=== PATIENT | male | born 1980 | race Caucasian/White ===

== ENCOUNTER 2018-04-06 12:51 | Inpatient (IN) | payer OTHER ==
[~2018-04-06] VITALS: Ht 180.3 cm; Wt 83.9 kg
[2018-04-06] MEDS ORDERED: ONDANSETRON PF 4 MG/2 ML VIAL. IV ONE (13:15)
[2018-04-06] MEDS ORDERED: MORPHINE SULFATE 4 MG/ML VIAL. IV ONE (13:15)
[2018-04-06] MEDS ORDERED: IV NORMAL SALINE 1000ML BAG 1,000 ML IV ONE ×2 (13:15→17:30)
[2018-04-06 13:29] LABS: BASO % 0 % (0-3); EOS % 0 % (0-3); HEMATOCRIT 44.4 % (39.0-53.0); LYMPH # 1.2 x10^3/uL (1.0-4.8); LYMPH % 13 % (24-48); MEAN CORPUSCULAR HEMOGLOBIN 28 pg (25-35); MEAN CORPUSCULAR HGB CONC 34 g/dL (31-37); MEAN CORPUSCULAR VOLUME 84 fL (79-100); MONO # 0.6 x10^3/uL (0.0-1.1); MONO % 6 % (0-9); NEUT # 7.6 x10^3uL (1.8-7.7); NEUT % 81 % (31-73); PLATELET COUNT 314 x10^3/uL (140-400); RED BLOOD COUNT 5.28 x10^6/uL (4.30-5.70); RED CELL DISTRIBUTION WIDTH 16.4 % (11.5-14.5); WHITE BLOOD COUNT 9.3 x10^3/uL (4.0-11.0)
[2018-04-06] MEDS ORDERED: IOHEXOL 240 MG/ML 50ML VIAL. PO ONE (13:30)
[2018-04-06] MEDS ORDERED: CONTRAST GIVEN. MC PRN (13:30)
[2018-04-06] MEDS ORDERED: IOHEXOL 300 MG/ML 100ML VIAL. IV ONE (13:30)
[2018-04-06 13:31] LABS: CALCIUM 8.9 mg/dL (8.5-10.1); GFR 84.1; POTASSIUM 4.1 mmol/L (3.5-5.1)
[2018-04-06 13:31] LABS: CREATININE ISTAT 0.9 mg/dL (0.5-1.4); HEMOGLOBIN ISTAT 15.6 g/dL (14-18); ION CA ISTAT 1.09 mmol/L (1.13-1.32)
[2018-04-06 13:37] LABS: ALBUMIN 3.6 g/dL (3.4-5.0); TOTAL BILIRUBIN 0.6 mg/dL (0.2-1.0); TOTAL PROTEIN 7.3 g/dL (6.4-8.2)
--- NOTE | 2018-04-06 15:18 | RAD ---
PQRS Compliance Statement: One or more of the following individualized dose reduction techniques were utilized for this examination: 1. Automated exposure control 2. Adjustment of the mA and/or kV according to patient size 3. Use of iterative reconstruction technique CT ABD PELV W/ORAL IV CONTRAST Clinical Indication: H/O CROHN'S. Abdominal pain, bloating. Comparison: None. Technique: Helical CT imaging of the abdomen and pelvis is performed after 75 cc of Omnipaque 300 IV contrast. Oral contrast also given. Findings: Lung bases are clear. Cardiac size normal. Liver, gallbladder, spleen, pancreas, adrenal glands, abdominal aorta, and kidneys are normal. Stomach unremarkable. Postsurgical change enterocolic anastomosis. Appendix not identified, presumably surgically absent. There is mid to distal small bowel obstruction. Point of transition is probably a right of midline supra umbilical hernia containing a loop of small bowel, image 43. The hernia has a narrow neck. No colon wall thickening is appreciated. There are subcentimeter mesenteric lymph nodes. No intraperitoneal free air. The urinary bladder is normal. There is moderate pelvic free fluid. Prostate is normal. There is grade 1 anterolisthesis of L4 and L5. There is bilateral L4 spondylolysis. IMPRESSION: 1. There is high-grade mid to distal small bowel obstruction. Point of transition is probably a right of midline supraumbilical hernia. 2. Moderate pelvic free fluid. Electronically signed by: Khoa Arguello MD (04/06/2018 3:14 PM) [id number]
--- NOTE | 2018-04-06 15:42 | PHYS DOC ---
Past Medical History Past Medical History: Hypertension, Other Additional Past Medical Histor: CROHNS, HERNIA Past Surgical History: Other Additional Past Surgical Histo: SB RESECTION, HERNIA REPAIR, L. HAND Alcohol Use: None Drug Use: None Adult General Chief Complaint Chief Complaint: ABDOMINAL PAIN [facility] HPI Patient is a 37 year old male who presents to the ER for evaluation of abdominal pain. Patient is currently in custody at [place]. He reports history of Crohn's disease not on any medications for the past 7-8 years. He is status post a bowel resection. 8 years ago related to his Crohn's. In in custody for the past 8 years and has not received any close GI follow-up. Patient reports onset of abdominal pain 5 days ago. States that he [facility] and was given IV Solu-Medrol and IV fluids. Patient reports that he has been nothing by mouth since that time secondary to pain/nausea. Patient reports that he try to drink some juice this morning had acute onset of severe pain. Patient reports diffuse abdominal distention, inability to pass Flatus, 10 out of 10, sharp diffuse abdominal pain. No fever. Review of Systems Review of Systems Constitutional: Denies fever or chills [] Eyes: Denies change in visual acuity, redness, or eye pain [] HENT: Denies nasal congestion or sore throat [] Respiratory: Denies cough or shortness of breath [] Cardiovascular: No additional information not addressed in HPI [] GI: Denies abdominal pain, nausea, vomiting, bloody stools or diarrhea [] : Denies dysuria or hematuria [] Musculoskeletal: Denies back pain or joint pain [] Integument: Denies rash or skin lesions [] Neurologic: Denies headache, focal weakness or sensory changes [] Endocrine: Denies polyuria or polydipsia [] All other systems were reviewed and found to be within normal limits, except as documented in this note. Current Medications Current Medications Current Medications Medications (Trade) Dose Ordered Sig/Rufino Start Time Stop Time Status Last Admin Dose Admin Info (CONTRAST GIVEN -- Rx MONITORING) 1 each PRN DAILY PRN 04/06/18 13:30 04/08/18 13:29 Iohexol (Omnipaque 240 Mg/ml) 30 ml 1X ONCE 04/06/18 13:30 04/06/18 13:31 DC 04/06/18 13:30 30 ML Iohexol (Omnipaque 300 Mg/ml) 75 ml 1X ONCE 04/06/18 13:30 04/06/18 13:31 DC 04/06/18 13:30 75 ML Morphine Sulfate (Morphine Sulfate) 4 mg 1X ONCE 04/06/18 13:15 04/06/18 13:21 DC 04/06/18 14:10 4 MG Ondansetron HCl (Zofran) 8 mg 1X ONCE 04/06/18 13:15 04/06/18 13:21 DC 04/06/18 14:11 8 MG Sodium Chloride 1,000 ml @ 1,000 mls/hr 1X ONCE 04/06/18 13:15 04/06/18 14:14 DC 04/06/18 14:11 1,000 MLS/HR Allergies Allergies Allergies Coded Allergies Type Severity Reaction Last Updated Verified No Known Drug Allergies 04/06/18 No Physical Exam Physical Exam Constitutional: Well developed, well nourished, moderate distress, non-toxic appearance. [] HENT: Normocephalic, atraumatic, Eyes: PERRLA, EOMI, Neck: Normal range of motion, Cardiovascular:Heart rate regular rhythm, no murmur [] Lungs & Thorax: Bilateral breath sounds clear to auscultation [] Abdomen: Moderate distention, decreased bowel sounds throughout, 3 x 2 cm easily reducible hernia just right lateral to midline incision. Diffuse moderate tenderness. Skin: Warm, dry, no erythema, no rash. [] Extremities: ROM intact, no edema. [] Neurologic: Alert and oriented X 3, no focal deficits noted. [] Psychologic: Affect normal, judgement normal, mood normal. [] Current Patient Data Vital Signs Vital Signs Date Time Temp Pulse Resp B/P (MAP) Pulse Ox O2 Delivery O2 Flow Rate FiO2 04/06/18 14:10 20 04/06/18 12:51 98.0 53 166/88 (114) 98 Room Air 98.0 Lab Values Laboratory Tests Test 04/06/18 13:05 04/06/18 13:16 White Blood Count 9.3 x10^3/uL (4.0-11.0) Red Blood Count 5.28 x10^6/uL (4.30-5.70) Hemoglobin 15.0 g/dL (13.0-17.5) Hematocrit 44.4 % (39.0-53.0) Mean Corpuscular Volume 84 fL (79-100) Mean Corpuscular Hemoglobin 28 pg (25-35) Mean Corpuscular Hemoglobin Concent 34 g/dL (31-37) Red Cell Distribution Width 16.4 % (11.5-14.5) H Platelet Count 314 x10^3/uL (140-400) Neutrophils (%) (Auto) 81 % (31-73) H Lymphocytes (%) (Auto) 13 % (24-48) L Monocytes (%) (Auto) 6 % (0-9) Eosinophils (%) (Auto) 0 % (0-3) Basophils (%) (Auto) 0 % (0-3) Neutrophils # (Auto) 7.6 x10^3uL (1.8-7.7) Lymphocytes # (Auto) 1.2 x10^3/uL (1.0-4.8) Monocytes # (Auto) 0.6 x10^3/uL (0.0-1.1) Eosinophils # (Auto) 0.0 x10^3/uL (0.0-0.7) Basophils # (Auto) 0.0 x10^3/uL (0.0-0.2) Sodium Level 137 mmol/L (136-145) Potassium Level 4.1 mmol/L (3.5-5.1) Chloride Level 101 mmol/L (98-107) Carbon Dioxide Level 29 mmol/L (21-32) Anion Gap 7 (6-14) 17 mmol/L (6-14) H Blood Urea Nitrogen 20 mg/dL (8-26) Creatinine 1.0 mg/dL (0.7-1.3) Estimated GFR (Cockcroft-Gault) 84.1 BUN/Creatinine Ratio 20 (6-20) Glucose Level 143 mg/dL (70-99) H 137 mg/dL (70-99) H Lactic Acid Level 1.3 mmol/L (0.4-2.0) Calcium Level 8.9 mg/dL (8.5-10.1) Total Bilirubin 0.6 mg/dL (0.2-1.0) Aspartate Amino Transferase (AST) 10 U/L (15-37) L Alanine Aminotransferase (ALT) 20 U/L (16-63) Alkaline Phosphatase 89 U/L (46-116) Total Protein 7.3 g/dL (6.4-8.2) Albumin 3.6 g/dL (3.4-5.0) Albumin/Globulin Ratio 1.0 (1.0-1.7) Lipase 75 U/L (73-393) POC Hemoglobin 15.6 g/dL (14-18) POC Hematocrit 46 % (37-52) POC Sodium 137 mmol/L (135-145) POC Potassium 4.0 mmol/L (3.5-5.0) POC Chloride 99 mmol/L (98-110) POC Total CO2 27 mmol/L (23-32) POC Blood Urea Nitrogen 21 mg/dL (8-26) POC Creatinine 0.9 mg/dL (0.5-1.4) POC Ionized Calcium (Luther) 1.09 mmol/L (1.13-1.32) L Laboratory Tests 04/06/18 13:05 Laboratory Tests 04/06/18 13:05 04/06/18 13:16 EKG EKG [] Radiology/Procedures Radiology/Procedures CT ABD/Pelvis [facility] [address] [place] [address] IMAGING REPORT Signed PATIENT: DEUCE SMITH ACCOUNT: [id number] : 1980 LOCATION: ER AGE: 37 SEX: M EXAM STATUS: REG ER ORD. PHYSICIAN: GEN SCHAFER DO REASON: H/o Crohns. eval for SBO vs perforation vs abscess PROCEDURE: CT ABD PELV W/ORAL&IV CONTRAST PQRS Compliance Statement: One or more of the following individualized dose reduction techniques were utilized for this examination: 1. Automated exposure control 2. Adjustment of the mA and/or kV according to patient size 3. Use of iterative reconstruction technique CT ABD PELV W/ORAL IV CONTRAST Clinical Indication: H/O CROHN'S. Abdominal pain, bloating. Comparison: None. Technique: Helical CT imaging of the abdomen and pelvis is performed after 75 cc of Omnipaque 300 IV contrast. Oral contrast also given. Findings: Lung bases are clear. Cardiac size normal. Liver, gallbladder, spleen, pancreas, adrenal glands, abdominal aorta, and kidneys are normal. Stomach unremarkable. Postsurgical change enterocolic anastomosis. Appendix not identified, presumably surgically absent. There is mid to distal small bowel obstruction. Point of transition is probably a right of midline supra umbilical hernia containing a loop of small bowel, image 43. The hernia has a narrow neck. No colon wall thickening is appreciated. There are subcentimeter mesenteric lymph nodes. No intraperitoneal free air. The urinary bladder is normal. There is moderate pelvic free fluid. Prostate is normal. There is grade 1 anterolisthesis of L4 and L5. There is bilateral L4 spondylolysis. IMPRESSION: 1. There is high-grade mid to distal small bowel obstruction. Point of transition is probably a right of midline supraumbilical hernia. 2. Moderate pelvic free fluid. Electronically signed by: Khoa Arguello MD (04/06/2018 3:14 PM) [id number] DICTATED and SIGNED BY: KHOA ARGUELLO MD DATE: 04/06/18 1452 [] Course & Med Decision Making Course & Med Decision Making Pertinent Labs and Imaging studies reviewed. (See chart for details) []1520: CT as above consistent with high-grade small bowel obstruction. On repeat examination patient reporting that his symptoms are well controlled after 1 dose of nausea and pain medication. Patient denies any current nausea. Patient's hernia continues to remain easily reducible. Will admit for continued management. Given control symptoms will not place an NG tube at this time. Discussed case with Dr. Durbin hollow tile partition erector for general surgery use agreeable with plan. Dr. Durbin recommendation for NG tube placement should patient have further nausea/vomiting. Discussed case with Dr. Felipe hollow tile partition erector for hospital service who is agreeable to admission. Patient remained hemodynamically stable in the ER. Dragon Disclaimer Dragon Disclaimer This electronic medical record was generated, in whole or in part, using a voice recognition dictation system. Departure Departure Impression: Primary Impression: Small bowel obstruction Disposition: ADMITTED INPATIENT Admitting Physician: Guillermo Case Condition: GUARDED Referrals: NO PCP (PCP) GEN SCHAFER DO Apr 06, 2018 15:42
[2018-04-06] MEDS ORDERED: MORPHINE SULFATE 4 MG/ML VIAL. IV PRN (15:45)
[2018-04-06 15:57] LABS: BILIRUBIN,URINE NEGATIVE (NEG); CLARITY,URINE CLEAR; COLOR,URINE YELLOW; NITRITE,URINE NEGATIVE (NEG); PROTEIN,URINE NEGATIVE (NEG-TRACE)
[2018-04-06 16:05] LABS: BACTERIA,URINE 0 /HPF (0-FEW); RBC,URINE OCC /HPF (0-2); SQUAMOUS EPITHELIAL CELL,UR OCC /LPF; WBC,URINE 0 /HPF (0-4)
[2018-04-06 16:38] VITALS: BP 126/70
--- NOTE | 2018-04-06 17:08 | PDOC1 ---
History and Physical Date of Admission Date of Admission DATE: 04/06/18 TIME: 17:06 Identification/Chief Complaint Chief Complaint cc Patient is currently in custody at [facility]. history of Crohn's disease not on any medications for the past 7-8 years. status post a bowel resection. 8 years ago related to his Crohn's at [facility] . In custody for the past 8 years and has not received any close GI follow-up. reports onset of abdominal pain 5 days ago. [facility] and was given IV Solu-Medrol and IV fluids.no improvement Past Medical History GI: Other (crohn's) Family History Family History: Other (crohn's) Social History Smoke: Quit ALCOHOL: none Drugs: Other (WORKED [employer] BEFORE JAILED) Current Problem List Problem List Problems Medical Problems: (1) Small bowel obstruction Status: Acute Current Medications Current Medications Current Medications Sodium Chloride 1,000 ml @ 1,000 mls/hr 1X ONCE IV Last administered on at 14:11; Start 04/06/18 at 13:15; Stop 04/06/18 at 14:14; Status DC Morphine Sulfate (Morphine Sulfate) 4 mg 1X ONCE IV Last administered on at 14:10; Start 04/06/18 at 13:15; Stop 04/06/18 at 13:21; Status DC Ondansetron HCl (Zofran) 8 mg 1X ONCE IV Last administered on 04/06/18at 14:11 ; Start 04/06/18 at 13:15; Stop 04/06/18 at 13:21; Status DC Iohexol (Omnipaque 240 Mg/ml) 30 ml 1X ONCE PO Last administered on 04/06/18at 13:30; Start 04/06/18 at 13:30; Stop 04/06/18 at 13:31; Status DC Iohexol (Omnipaque 300 Mg/ml) 75 ml 1X ONCE IV Last administered on 04/06/18at 13:30; Start 04/06/18 at 13:30; Stop 04/06/18 at 13:31; Status DC Info (CONTRAST GIVEN -- Rx MONITORING) 1 each PRN DAILY PRN MC SEE COMMENTS; Start 04/06/18 at 13:30; Stop 04/08/18 at 13:29 Morphine Sulfate (Morphine Sulfate) 4 mg PRN Q2HR PRN IV PAIN; Start 04/06/18 at 15:45; Stop 04/07/18 at 15:44 Allergies Allergies: Coded Allergies: No Known Drug Allergies (Unverified , 04/06/18) ROS Review of System Review of Systems Review of Systems Constitutional: Denies fever or chills [] Eyes: Denies change in visual acuity, redness, or eye pain [] HENT: Denies nasal congestion or sore throat [] Respiratory: Denies cough or shortness of breath [] Cardiovascular: No additional information not addressed in HPI [] GI: Denies abdominal pain, nausea, vomiting, bloody stools or diarrhea [] : Denies dysuria or hematuria [] Musculoskeletal: Denies back pain or joint pain [] Integument: Denies rash or skin lesions [] Neurologic: Denies headache, focal weakness or sensory changes [] Endocrine: Denies polyuria or polydipsia [] 14 pt systems were reviewed and found to be within normal limits, except as documented . Current Medications General: YES: Fatigue Hematological and Lymphatic: No: Bleeding Problems, Blood Clots, Blood Transfusions, Brusing, Night Sweats, Pallor, Swollen Lymph Nodes, Other Gastrointestinal: Yes Nausea, Yes Vomiting, Yes Abdominal Pain Vitals Vitals Vital Signs Date Time Temp Pulse Resp B/P (MAP) Pulse Ox O2 Delivery O2 Flow Rate FiO2 04/06/18 16:44 54 18 144/65 (91) 95 Room Air 04/06/18 12:51 98.0 98.0 Labs Labs Laboratory Tests Test 04/06/18 13:05 04/06/18 13:16 04/06/18 15:49 White Blood Count 9.3 x10^3/uL (4.0-11.0) Red Blood Count 5.28 x10^6/uL (4.30-5.70) Hemoglobin 15.0 g/dL (13.0-17.5) Hematocrit 44.4 % (39.0-53.0) Mean Corpuscular Volume 84 fL (79-100) Mean Corpuscular Hemoglobin 28 pg (25-35) Mean Corpuscular Hemoglobin Concent 34 g/dL (31-37) Red Cell Distribution Width 16.4 % (11.5-14.5) Platelet Count 314 x10^3/uL (140-400) Neutrophils (%) (Auto) 81 % (31-73) Lymphocytes (%) (Auto) 13 % (24-48) Monocytes (%) (Auto) 6 % (0-9) Eosinophils (%) (Auto) 0 % (0-3) Basophils (%) (Auto) 0 % (0-3) Neutrophils # (Auto) 7.6 x10^3uL (1.8-7.7) Lymphocytes # (Auto) 1.2 x10^3/uL (1.0-4.8) Monocytes # (Auto) 0.6 x10^3/uL (0.0-1.1) Eosinophils # (Auto) 0.0 x10^3/uL (0.0-0.7) Basophils # (Auto) 0.0 x10^3/uL (0.0-0.2) Sodium Level 137 mmol/L (136-145) Potassium Level 4.1 mmol/L (3.5-5.1) Chloride Level 101 mmol/L (98-107) Carbon Dioxide Level 29 mmol/L (21-32) Anion Gap 7 (6-14) 17 mmol/L (6-14) Blood Urea Nitrogen 20 mg/dL (8-26) Creatinine 1.0 mg/dL (0.7-1.3) Estimated GFR (Cockcroft-Gault) 84.1 BUN/Creatinine Ratio 20 (6-20) Glucose Level 143 mg/dL (70-99) 137 mg/dL (70-99) Lactic Acid Level 1.3 mmol/L (0.4-2.0) Calcium Level 8.9 mg/dL (8.5-10.1) Total Bilirubin 0.6 mg/dL (0.2-1.0) Aspartate Amino Transf (AST/SGOT) 10 U/L (15-37) Alanine Aminotransferase (ALT/SGPT) 20 U/L (16-63) Alkaline Phosphatase 89 U/L (46-116) Total Protein 7.3 g/dL (6.4-8.2) Albumin 3.6 g/dL (3.4-5.0) Albumin/Globulin Ratio 1.0 (1.0-1.7) Lipase 75 U/L (73-393) Bedside Hemoglobin 15.6 g/dL (14-18) Bedside Hematocrit 46 % (37-52) Bedside Sodium 137 mmol/L (135-145) Bedside Potassium 4.0 mmol/L (3.5-5.0) Bedside Chloride 99 mmol/L (98-110) Bedside Total CO2 27 mmol/L (23-32) Bedside Blood Urea Nitrogen 21 mg/dL (8-26) Bedside Creatinine 0.9 mg/dL (0.5-1.4) Bedside Ionized Calcium (Luther) 1.09 mmol/L (1.13-1.32) Urine Collection Type Unknown Urine Color Yellow Urine Clarity Clear Urine pH 6.0 Urine Specific Juliaetta >=1.030 Urine Protein Negative mg/dL (NEG-TRACE) Urine Glucose (UA) Negative mg/dL (NEG) Urine Ketones (Stick) Trace mg/dL (NEG) Urine Blood Negative (NEG) Urine Nitrite Negative (NEG) Urine Bilirubin Negative (NEG) Urine Urobilinogen Dipstick 1.0 mg/dL (0.2 mg/dL) Urine Leukocyte Esterase Negative (NEG) Urine RBC Occ /HPF (0-2) Urine WBC 0 /HPF (0-4) Urine Squamous Epithelial Cells Occ /LPF Urine Bacteria 0 /HPF (0-FEW) Urine Mucus Marked /LPF Laboratory Tests Test 04/06/18 13:05 04/06/18 13:16 04/06/18 15:49 White Blood Count 9.3 x10^3/uL (4.0-11.0) Red Blood Count 5.28 x10^6/uL (4.30-5.70) Hemoglobin 15.0 g/dL (13.0-17.5) Hematocrit 44.4 % (39.0-53.0) Mean Corpuscular Volume 84 fL (79-100) Mean Corpuscular Hemoglobin 28 pg (25-35) Mean Corpuscular Hemoglobin Concent 34 g/dL (31-37) Red Cell Distribution Width 16.4 % (11.5-14.5) Platelet Count 314 x10^3/uL (140-400) Neutrophils (%) (Auto) 81 % (31-73) Lymphocytes (%) (Auto) 13 % (24-48) Monocytes (%) (Auto) 6 % (0-9) Eosinophils (%) (Auto) 0 % (0-3) Basophils (%) (Auto) 0 % (0-3) Neutrophils # (Auto) 7.6 x10^3uL (1.8-7.7) Lymphocytes # (Auto) 1.2 x10^3/uL (1.0-4.8) Monocytes # (Auto) 0.6 x10^3/uL (0.0-1.1) Eosinophils # (Auto) 0.0 x10^3/uL (0.0-0.7) Basophils # (Auto) 0.0 x10^3/uL (0.0-0.2) Sodium Level 137 mmol/L (136-145) Potassium Level 4.1 mmol/L (3.5-5.1) Chloride Level 101 mmol/L (98-107) Carbon Dioxide Level 29 mmol/L (21-32) Anion Gap 7 (6-14) 17 mmol/L (6-14) Blood Urea Nitrogen 20 mg/dL (8-26) Creatinine 1.0 mg/dL (0.7-1.3) Estimated GFR (Cockcroft-Gault) 84.1 BUN/Creatinine Ratio 20 (6-20) Glucose Level 143 mg/dL (70-99) 137 mg/dL (70-99) Lactic Acid Level 1.3 mmol/L (0.4-2.0) Calcium Level 8.9 mg/dL (8.5-10.1) Total Bilirubin 0.6 mg/dL (0.2-1.0) Aspartate Amino Transf (AST/SGOT) 10 U/L (15-37) Alanine Aminotransferase (ALT/SGPT) 20 U/L (16-63) Alkaline Phosphatase 89 U/L (46-116) Total Protein 7.3 g/dL (6.4-8.2) Albumin 3.6 g/dL (3.4-5.0) Albumin/Globulin Ratio 1.0 (1.0-1.7) Lipase 75 U/L (73-393) Bedside Hemoglobin 15.6 g/dL (14-18) Bedside Hematocrit 46 % (37-52) Bedside Sodium 137 mmol/L (135-145) Bedside Potassium 4.0 mmol/L (3.5-5.0) Bedside Chloride 99 mmol/L (98-110) Bedside Total CO2 27 mmol/L (23-32) Bedside Blood Urea Nitrogen 21 mg/dL (8-26) Bedside Creatinine 0.9 mg/dL (0.5-1.4) Bedside Ionized Calcium (Luther) 1.09 mmol/L (1.13-1.32) Urine Collection Type Unknown Urine Color Yellow Urine Clarity Clear Urine pH 6.0 Urine Specific Juliaetta >=1.030 Urine Protein Negative mg/dL (NEG-TRACE) Urine Glucose (UA) Negative mg/dL (NEG) Urine Ketones (Stick) Trace mg/dL (NEG) Urine Blood Negative (NEG) Urine Nitrite Negative (NEG) Urine Bilirubin Negative (NEG) Urine Urobilinogen Dipstick 1.0 mg/dL (0.2 mg/dL) Urine Leukocyte Esterase Negative (NEG) Urine RBC Occ /HPF (0-2) Urine WBC 0 /HPF (0-4) Urine Squamous Epithelial Cells Occ /LPF Urine Bacteria 0 /HPF (0-FEW) Urine Mucus Marked /LPF Images Images CT ABD PELV W/ORAL IV CONTRAST Clinical Indication: H/O CROHN'S. Abdominal pain, bloating. Comparison: None. Technique: Helical CT imaging of the abdomen and pelvis is performed after 75 cc of Omnipaque 300 IV contrast. Oral contrast also given. Findings: Lung bases are clear. Cardiac size normal. Liver, gallbladder, spleen, pancreas, adrenal glands, abdominal aorta, and kidneys are normal. Stomach unremarkable. Postsurgical change enterocolic anastomosis. Appendix not identified, presumably surgically absent. There is mid to distal small bowel obstruction. Point of transition is probably a right of midline supra umbilical hernia containing a loop of small bowel, image 43. The hernia has a narrow neck. No colon wall thickening is appreciated. There are subcentimeter mesenteric lymph nodes. No intraperitoneal free air. The urinary bladder is normal. There is moderate pelvic free fluid. Prostate is normal. There is grade 1 anterolisthesis of L4 and L5. There is bilateral L4 spondylolysis. IMPRESSION: 1. There is high-grade mid to distal small bowel obstruction. Point of transition is probably a right of midline supraumbilical hernia. 2. Moderate pelvic free fluid. Electronically signed by: Khoa Arguello MD (04/06/2018 3:14 PM) [id number] VTE Prophylaxis Ordered VTE Prophylaxis Devices: Yes VTE Pharmacological Prophylaxi: Yes Assessment/Plan Assessment/Plan IMPRESSION 1. Acute sbo high-grade mid to distal small bowel obstruction 2. Chron's disease 3. intractable vomiting plan npo iv protonix gen surg consult GI CONSULT IV FLUID SUPPORT SQ LOVENOX DVT PROPHYLAXIS KAVITHA EVANS MD Apr 06, 2018 17:08
--- NOTE | 2018-04-06 17:58 | PDOC2 ---
CONSULT Date of Consult Date of Consult DATE: 04/06/18 TIME: 17:48 Reason for Consult Reason for Consult: SBO Referring Physician Referring Physician: GRACE Identification/Chief Complaint Chief Complaint abdominal pain, nausea Source Source: Chart review, Patient History of Present Illness Reason for Visit: Himanshu is a 37 yo Crohn's patient s/p "small bowel resection" 8-9 years ago. Has had no meds for years. Currently an [facility] [place] Past Medical History Cardiovascular: No pertinent hx, HTN Pulmonary: No pertinent hx GI: Other (crohn's) Past Surgical History Past Surgical History: Other (bowel resection) Family History Family History: No Significant, Other (crohn's) Social History Quit ALCOHOL: none Drugs: Other (WORKED [employer] BEFORE JAILED) Current Problem List Problem List Problems Medical Problems: (1) Small bowel obstruction Status: Acute Current Medications Current Medications Current Medications Sodium Chloride 1,000 ml @ 1,000 mls/hr 1X ONCE IV Last administered on at 14:11; Start 04/06/18 at 13:15; Stop 04/06/18 at 14:14; Status DC Morphine Sulfate (Morphine Sulfate) 4 mg 1X ONCE IV Last administered on at 14:10; Start 04/06/18 at 13:15; Stop 04/06/18 at 13:21; Status DC Ondansetron HCl (Zofran) 8 mg 1X ONCE IV Last administered on 04/06/18at 14:11 ; Start 04/06/18 at 13:15; Stop 04/06/18 at 13:21; Status DC Iohexol (Omnipaque 240 Mg/ml) 30 ml 1X ONCE PO Last administered on 04/06/18at 13:30; Start 04/06/18 at 13:30; Stop 04/06/18 at 13:31; Status DC Iohexol (Omnipaque 300 Mg/ml) 75 ml 1X ONCE IV Last administered on 04/06/18at 13:30; Start 04/06/18 at 13:30; Stop 04/06/18 at 13:31; Status DC Info (CONTRAST GIVEN -- Rx MONITORING) 1 each PRN DAILY PRN MC SEE COMMENTS; Start 04/06/18 at 13:30; Stop 04/08/18 at 13:29 Morphine Sulfate (Morphine Sulfate) 4 mg PRN Q2HR PRN IV PAIN; Start 04/06/18 at 15:45; Stop 04/07/18 at 15:44 Enoxaparin Sodium (Lovenox 40mg Syringe) 40 mg Q24H SQ ; Start 04/06/18 at 19:00 Sodium Chloride 1,000 ml @ 125 mls/hr 1X ONCE IV ; Start 04/06/18 at 17:30; Stop 04/07/18 at 01:29 Pantoprazole Sodium (PROTONIX VIAL for IV PUSH) 40 mg DAILYAC IVP ; Start at 18:00 Allergies Allergies: Coded Allergies: No Known Drug Allergies (Unverified , 04/06/18) ROS Review of System negative with exception of present complaints Physical Exam General: Alert, Oriented X3, Other (uncomfortable 2/2 abdominal pain) HEENT: Atraumatic Lungs: Normal air movement Heart: Regular rate Abdomen: Soft, Other (well healed midline scar, reducible incisional hernia to the right of midline) Extremities: No clubbing Skin: No rashes Neuro: Normal speech Psych/Mental Status: Mental status NL Vitals VITALS Vital Signs Date Time Temp Pulse Resp B/P (MAP) Pulse Ox O2 Delivery O2 Flow Rate FiO2 04/06/18 16:44 54 18 144/65 (91) 95 Room Air 04/06/18 12:51 98.0 98.0 Labs Labs Laboratory Tests Test 04/06/18 13:05 04/06/18 13:16 04/06/18 15:49 White Blood Count 9.3 x10^3/uL (4.0-11.0) Red Blood Count 5.28 x10^6/uL (4.30-5.70) Hemoglobin 15.0 g/dL (13.0-17.5) Hematocrit 44.4 % (39.0-53.0) Mean Corpuscular Volume 84 fL (79-100) Mean Corpuscular Hemoglobin 28 pg (25-35) Mean Corpuscular Hemoglobin Concent 34 g/dL (31-37) Red Cell Distribution Width 16.4 % (11.5-14.5) Platelet Count 314 x10^3/uL (140-400) Neutrophils (%) (Auto) 81 % (31-73) Lymphocytes (%) (Auto) 13 % (24-48) Monocytes (%) (Auto) 6 % (0-9) Eosinophils (%) (Auto) 0 % (0-3) Basophils (%) (Auto) 0 % (0-3) Neutrophils # (Auto) 7.6 x10^3uL (1.8-7.7) Lymphocytes # (Auto) 1.2 x10^3/uL (1.0-4.8) Monocytes # (Auto) 0.6 x10^3/uL (0.0-1.1) Eosinophils # (Auto) 0.0 x10^3/uL (0.0-0.7) Basophils # (Auto) 0.0 x10^3/uL (0.0-0.2) Sodium Level 137 mmol/L (136-145) Potassium Level 4.1 mmol/L (3.5-5.1) Chloride Level 101 mmol/L (98-107) Carbon Dioxide Level 29 mmol/L (21-32) Anion Gap 7 (6-14) 17 mmol/L (6-14) Blood Urea Nitrogen 20 mg/dL (8-26) Creatinine 1.0 mg/dL (0.7-1.3) Estimated GFR (Cockcroft-Gault) 84.1 BUN/Creatinine Ratio 20 (6-20) Glucose Level 143 mg/dL (70-99) 137 mg/dL (70-99) Lactic Acid Level 1.3 mmol/L (0.4-2.0) Calcium Level 8.9 mg/dL (8.5-10.1) Total Bilirubin 0.6 mg/dL (0.2-1.0) Aspartate Amino Transf (AST/SGOT) 10 U/L (15-37) Alanine Aminotransferase (ALT/SGPT) 20 U/L (16-63) Alkaline Phosphatase 89 U/L (46-116) Total Protein 7.3 g/dL (6.4-8.2) Albumin 3.6 g/dL (3.4-5.0) Albumin/Globulin Ratio 1.0 (1.0-1.7) Lipase 75 U/L (73-393) Bedside Hemoglobin 15.6 g/dL (14-18) Bedside Hematocrit 46 % (37-52) Bedside Sodium 137 mmol/L (135-145) Bedside Potassium 4.0 mmol/L (3.5-5.0) Bedside Chloride 99 mmol/L (98-110) Bedside Total CO2 27 mmol/L (23-32) Bedside Blood Urea Nitrogen 21 mg/dL (8-26) Bedside Creatinine 0.9 mg/dL (0.5-1.4) Bedside Ionized Calcium (Luther) 1.09 mmol/L (1.13-1.32) Urine Collection Type Unknown Urine Color Yellow Urine Clarity Clear Urine pH 6.0 Urine Specific [place] >=1.030 Urine Protein Negative mg/dL (NEG-TRACE) Urine Glucose (UA) Negative mg/dL (NEG) Urine Ketones (Stick) Trace mg/dL (NEG) Urine Blood Negative (NEG) Urine Nitrite Negative (NEG) Urine Bilirubin Negative (NEG) Urine Urobilinogen Dipstick 1.0 mg/dL (0.2 mg/dL) Urine Leukocyte Esterase Negative (NEG) Urine RBC Occ /HPF (0-2) Urine WBC 0 /HPF (0-4) Urine Squamous Epithelial Cells Occ /LPF Urine Bacteria 0 /HPF (0-FEW) Urine Mucus Marked /LPF Laboratory Tests Test 04/06/18 13:05 04/06/18 13:16 04/06/18 15:49 White Blood Count 9.3 x10^3/uL (4.0-11.0) Red Blood Count 5.28 x10^6/uL (4.30-5.70) Hemoglobin 15.0 g/dL (13.0-17.5) Hematocrit 44.4 % (39.0-53.0) Mean Corpuscular Volume 84 fL (79-100) Mean Corpuscular Hemoglobin 28 pg (25-35) Mean Corpuscular Hemoglobin Concent 34 g/dL (31-37) Red Cell Distribution Width 16.4 % (11.5-14.5) Platelet Count 314 x10^3/uL (140-400) Neutrophils (%) (Auto) 81 % (31-73) Lymphocytes (%) (Auto) 13 % (24-48) Monocytes (%) (Auto) 6 % (0-9) Eosinophils (%) (Auto) 0 % (0-3) Basophils (%) (Auto) 0 % (0-3) Neutrophils # (Auto) 7.6 x10^3uL (1.8-7.7) Lymphocytes # (Auto) 1.2 x10^3/uL (1.0-4.8) Monocytes # (Auto) 0.6 x10^3/uL (0.0-1.1) Eosinophils # (Auto) 0.0 x10^3/uL (0.0-0.7) Basophils # (Auto) 0.0 x10^3/uL (0.0-0.2) Sodium Level 137 mmol/L (136-145) Potassium Level 4.1 mmol/L (3.5-5.1) Chloride Level 101 mmol/L (98-107) Carbon Dioxide Level 29 mmol/L (21-32) Anion Gap 7 (6-14) 17 mmol/L (6-14) Blood Urea Nitrogen 20 mg/dL (8-26) Creatinine 1.0 mg/dL (0.7-1.3) Estimated GFR (Cockcroft-Gault) 84.1 BUN/Creatinine Ratio 20 (6-20) Glucose Level 143 mg/dL (70-99) 137 mg/dL (70-99) Lactic Acid Level 1.3 mmol/L (0.4-2.0) Calcium Level 8.9 mg/dL (8.5-10.1) Total Bilirubin 0.6 mg/dL (0.2-1.0) Aspartate Amino Transf (AST/SGOT) 10 U/L (15-37) Alanine Aminotransferase (ALT/SGPT) 20 U/L (16-63) Alkaline Phosphatase 89 U/L (46-116) Total Protein 7.3 g/dL (6.4-8.2) Albumin 3.6 g/dL (3.4-5.0) Albumin/Globulin Ratio 1.0 (1.0-1.7) Lipase 75 U/L (73-393) Bedside Hemoglobin 15.6 g/dL (14-18) Bedside Hematocrit 46 % (37-52) Bedside Sodium 137 mmol/L (135-145) Bedside Potassium 4.0 mmol/L (3.5-5.0) Bedside Chloride 99 mmol/L (98-110) Bedside Total CO2 27 mmol/L (23-32) Bedside Blood Urea Nitrogen 21 mg/dL (8-26) Bedside Creatinine 0.9 mg/dL (0.5-1.4) Bedside Ionized Calcium (Luther) 1.09 mmol/L (1.13-1.32) Urine Collection Type Unknown Urine Color Yellow Urine Clarity Clear Urine pH 6.0 Urine Specific [place] >=1.030 Urine Protein Negative mg/dL (NEG-TRACE) Urine Glucose (UA) Negative mg/dL (NEG) Urine Ketones (Stick) Trace mg/dL (NEG) Urine Blood Negative (NEG) Urine Nitrite Negative (NEG) Urine Bilirubin Negative (NEG) Urine Urobilinogen Dipstick 1.0 mg/dL (0.2 mg/dL) Urine Leukocyte Esterase Negative (NEG) Urine RBC Occ /HPF (0-2) Urine WBC 0 /HPF (0-4) Urine Squamous Epithelial Cells Occ /LPF Urine Bacteria 0 /HPF (0-FEW) Urine Mucus Marked /LPF Images Images CT done earlier reviewed Assessment/Plan Assessment/Plan Hx of Crohn's s/p SBR (remote) SBO VIH HPT hydrate, serial exams, NG for any further nausea or vomiting GI eval may need SBFT d/w pt he states understanding will follow Thanks for consult SOPHIE JACKSON MD Apr 06, 2018 17:58
[2018-04-06] MEDS: PANTOPRAZOLE IV PUSH 40 MG VIAL. IVP SCH (18:15)
[2018-04-06 19:00] VITALS: BP 130/64
[2018-04-06] MEDS ORDERED: ENOXAPARIN 40 MG/0.4 ML SYRINGE. SQ SCH (19:00)
[2018-04-06 23:00] VITALS: BP 137/64
[2018-04-07 03:04] VITALS: BP 111/72
[2018-04-07 07:00] VITALS: BP 107/54
[2018-04-07] MEDS: PANTOPRAZOLE IV PUSH 40 MG VIAL. IVP SCH (07:44)
--- NOTE | 2018-04-07 08:16 | PDOC ---
SURGICAL PROGRESS NOTE Subjective feels better + flatus slight nausea with movement pain less Vital Signs Vital Signs Date Time Temp Pulse Resp B/P (MAP) Pulse Ox O2 Delivery O2 Flow Rate FiO2 04/07/18 07:00 97.9 48 16 107/54 (71) 96 Room Air 97.9 I&O Intake and Output 04/07/18 07:00 Intake Total 1120 ml Balance 1120 ml Intake Oral 120 ml IV Total 1000 ml # Voids 3 General: Alert, Oriented X3, Cooperative, No acute distress Abdomen: Soft, Other (hernia reducible) Labs Laboratory Tests Test 04/06/18 13:05 04/06/18 13:16 04/06/18 15:49 White Blood Count 9.3 x10^3/uL (4.0-11.0) Red Blood Count 5.28 x10^6/uL (4.30-5.70) Hemoglobin 15.0 g/dL (13.0-17.5) Hematocrit 44.4 % (39.0-53.0) Mean Corpuscular Volume 84 fL (79-100) Mean Corpuscular Hemoglobin 28 pg (25-35) Mean Corpuscular Hemoglobin Concent 34 g/dL (31-37) Red Cell Distribution Width 16.4 % (11.5-14.5) Platelet Count 314 x10^3/uL (140-400) Neutrophils (%) (Auto) 81 % (31-73) Lymphocytes (%) (Auto) 13 % (24-48) Monocytes (%) (Auto) 6 % (0-9) Eosinophils (%) (Auto) 0 % (0-3) Basophils (%) (Auto) 0 % (0-3) Neutrophils # (Auto) 7.6 x10^3uL (1.8-7.7) Lymphocytes # (Auto) 1.2 x10^3/uL (1.0-4.8) Monocytes # (Auto) 0.6 x10^3/uL (0.0-1.1) Eosinophils # (Auto) 0.0 x10^3/uL (0.0-0.7) Basophils # (Auto) 0.0 x10^3/uL (0.0-0.2) Sodium Level 137 mmol/L (136-145) Potassium Level 4.1 mmol/L (3.5-5.1) Chloride Level 101 mmol/L (98-107) Carbon Dioxide Level 29 mmol/L (21-32) Anion Gap 7 (6-14) 17 mmol/L (6-14) Blood Urea Nitrogen 20 mg/dL (8-26) Creatinine 1.0 mg/dL (0.7-1.3) Estimated GFR (Cockcroft-Gault) 84.1 BUN/Creatinine Ratio 20 (6-20) Glucose Level 143 mg/dL (70-99) 137 mg/dL (70-99) Lactic Acid Level 1.3 mmol/L (0.4-2.0) Calcium Level 8.9 mg/dL (8.5-10.1) Total Bilirubin 0.6 mg/dL (0.2-1.0) Aspartate Amino Transf (AST/SGOT) 10 U/L (15-37) Alanine Aminotransferase (ALT/SGPT) 20 U/L (16-63) Alkaline Phosphatase 89 U/L (46-116) Total Protein 7.3 g/dL (6.4-8.2) Albumin 3.6 g/dL (3.4-5.0) Albumin/Globulin Ratio 1.0 (1.0-1.7) Lipase 75 U/L (73-393) Bedside Hemoglobin 15.6 g/dL (14-18) Bedside Hematocrit 46 % (37-52) Bedside Sodium 137 mmol/L (135-145) Bedside Potassium 4.0 mmol/L (3.5-5.0) Bedside Chloride 99 mmol/L (98-110) Bedside Total CO2 27 mmol/L (23-32) Bedside Blood Urea Nitrogen 21 mg/dL (8-26) Bedside Creatinine 0.9 mg/dL (0.5-1.4) Bedside Ionized Calcium (Luther) 1.09 mmol/L (1.13-1.32) Urine Collection Type Unknown Urine Color Yellow Urine Clarity Clear Urine pH 6.0 Urine Specific [place] >=1.030 Urine Protein Negative mg/dL (NEG-TRACE) Urine Glucose (UA) Negative mg/dL (NEG) Urine Ketones (Stick) Trace mg/dL (NEG) Urine Blood Negative (NEG) Urine Nitrite Negative (NEG) Urine Bilirubin Negative (NEG) Urine Urobilinogen Dipstick 1.0 mg/dL (0.2 mg/dL) Urine Leukocyte Esterase Negative (NEG) Urine RBC Occ /HPF (0-2) Urine WBC 0 /HPF (0-4) Urine Squamous Epithelial Cells Occ /LPF Urine Bacteria 0 /HPF (0-FEW) Urine Mucus Marked /LPF Laboratory Tests Test 04/06/18 13:05 04/06/18 13:16 04/06/18 15:49 White Blood Count 9.3 x10^3/uL (4.0-11.0) Red Blood Count 5.28 x10^6/uL (4.30-5.70) Hemoglobin 15.0 g/dL (13.0-17.5) Hematocrit 44.4 % (39.0-53.0) Mean Corpuscular Volume 84 fL (79-100) Mean Corpuscular Hemoglobin 28 pg (25-35) Mean Corpuscular Hemoglobin Concent 34 g/dL (31-37) Red Cell Distribution Width 16.4 % (11.5-14.5) Platelet Count 314 x10^3/uL (140-400) Neutrophils (%) (Auto) 81 % (31-73) Lymphocytes (%) (Auto) 13 % (24-48) Monocytes (%) (Auto) 6 % (0-9) Eosinophils (%) (Auto) 0 % (0-3) Basophils (%) (Auto) 0 % (0-3) Neutrophils # (Auto) 7.6 x10^3uL (1.8-7.7) Lymphocytes # (Auto) 1.2 x10^3/uL (1.0-4.8) Monocytes # (Auto) 0.6 x10^3/uL (0.0-1.1) Eosinophils # (Auto) 0.0 x10^3/uL (0.0-0.7) Basophils # (Auto) 0.0 x10^3/uL (0.0-0.2) Sodium Level 137 mmol/L (136-145) Potassium Level 4.1 mmol/L (3.5-5.1) Chloride Level 101 mmol/L (98-107) Carbon Dioxide Level 29 mmol/L (21-32) Anion Gap 7 (6-14) 17 mmol/L (6-14) Blood Urea Nitrogen 20 mg/dL (8-26) Creatinine 1.0 mg/dL (0.7-1.3) Estimated GFR (Cockcroft-Gault) 84.1 BUN/Creatinine Ratio 20 (6-20) Glucose Level 143 mg/dL (70-99) 137 mg/dL (70-99) Lactic Acid Level 1.3 mmol/L (0.4-2.0) Calcium Level 8.9 mg/dL (8.5-10.1) Total Bilirubin 0.6 mg/dL (0.2-1.0) Aspartate Amino Transf (AST/SGOT) 10 U/L (15-37) Alanine Aminotransferase (ALT/SGPT) 20 U/L (16-63) Alkaline Phosphatase 89 U/L (46-116) Total Protein 7.3 g/dL (6.4-8.2) Albumin 3.6 g/dL (3.4-5.0) Albumin/Globulin Ratio 1.0 (1.0-1.7) Lipase 75 U/L (73-393) Bedside Hemoglobin 15.6 g/dL (14-18) Bedside Hematocrit 46 % (37-52) Bedside Sodium 137 mmol/L (135-145) Bedside Potassium 4.0 mmol/L (3.5-5.0) Bedside Chloride 99 mmol/L (98-110) Bedside Total CO2 27 mmol/L (23-32) Bedside Blood Urea Nitrogen 21 mg/dL (8-26) Bedside Creatinine 0.9 mg/dL (0.5-1.4) Bedside Ionized Calcium (Luther) 1.09 mmol/L (1.13-1.32) Urine Collection Type Unknown Urine Color Yellow Urine Clarity Clear Urine pH 6.0 Urine Specific [place] >=1.030 Urine Protein Negative mg/dL (NEG-TRACE) Urine Glucose (UA) Negative mg/dL (NEG) Urine Ketones (Stick) Trace mg/dL (NEG) Urine Blood Negative (NEG) Urine Nitrite Negative (NEG) Urine Bilirubin Negative (NEG) Urine Urobilinogen Dipstick 1.0 mg/dL (0.2 mg/dL) Urine Leukocyte Esterase Negative (NEG) Urine RBC Occ /HPF (0-2) Urine WBC 0 /HPF (0-4) Urine Squamous Epithelial Cells Occ /LPF Urine Bacteria 0 /HPF (0-FEW) Urine Mucus Marked /LPF Problem List Problems Medical Problems: (1) Small bowel obstruction Status: Acute Assessment/Plan check plain films if improved, possible clears today GI consult pending LEELA CARLSON APRN Apr 07, 2018 08:16
[2018-04-07] MEDS ORDERED: ONDANSETRON PF 4 MG/2 ML VIAL. IV PRN (08:45)
[2018-04-07] MEDS ORDERED: ONDANSETRON ODT 4 MG TAB.RAPDIS. PO PRN (08:45)
--- NOTE | 2018-04-07 09:18 | PDOC2 ---
GI CONSULT Reason For Consult: Acute SBO, Crohn's HPI: HPI: 37 y/o male, currently incarcerated, h/o Crohn's. Diagnosed in 2006; colonoscopy c/w Crohn's at [facility] (erythema, edema, and granularity). Cecal biopsy showed mild nonspecific inflammation w/ minimal cryptitis and rectal biopsy showed chronic mild subacute colitis w/ limited cryptitis and granulomatous change. Symptoms (pain) improved on Remicade but then had resection of terminal ileum and right colon in 2007. He says he had a follow- up colonoscopy in 2008 that was normal. Around the time of surgery medications for Crohn's were stopped and then he was incarcerated in 2009. He took nothing for awhile. He reports intermittent flare symptoms (pain, bloating, distended hernia) improved w/ steroids every 4-5 months. Then a couple years ago started taking Colazal 2 pills BID. Has been without symptoms for about a year. His family came to visit and he ate a lot on Tuesday. That day started having periumbilical pain which worsened into the next day. He had some vomiting on Tuesday and was evaluated and given fluids and Solu-Medrol. Tuesday felt a little better and had a large BM. Tuesday felt even better but had an odd- looking "dehydrated and black" stool. Basically only had sips of water during this time. On , drank some apple juice, vomited, and pain worsened. Was evaluated in the ER. CT showed mid to distal small bowel obstruction w/ transition point probably to right of midline supraumbilical hernia. Has been NPO. Received Morphine yesterday but hasn't needed today. Zofran helped nausea. This morning feels better - feels less distended, has less pain, and denies n/v. Passed a little gas. Surgery following, plans to check abd x-rays. Perhaps has occasional GERD symptoms (bloating after eating). No dysphagia. Typically has alternating bowel habits - maybe more on the constipation side, improve w/ coffee. Denies hematochezia, melena, hematemesis. Has been working out and trying to eat better, has lost weight as a result. Hurt back working out, occasionally takes ibuprofen and magnesium for this. Does not recall previous EGD. No GB, liver, or pancreas history. Used to smoke cigarettes and use meth, none since incarceration in 2009. PMH: PMH: Crohn's disease, resection of right terminal ileum and right colon, left hand surgery, umbilical hernia repair, tonsillectomy FH: Family History: Cancer (maternal aunt - colon), DM, Other (paternal great grandfather and grandfather - Crohn's) Social History: Smoke: Quit ALCOHOL: other (none since incarcerated in 2009) Drugs: Crystal meth (before incarcerated) ROS: GEN: Denies fevers, chills, sweats HEENT: Denies blurred vision, sore throat CV: Denies chest pain RESP: Denies shortness of air, cough GI: Per HPI : Denies hematuria, dysuria ENDO: +intentional weight loss NEURO: Denies confusion, dizziness MSK: +back pain SKIN: Denies jaundice, pruritus Vitals: Vitals: Vital Signs Date Time Temp Pulse Resp B/P (MAP) Pulse Ox O2 Delivery O2 Flow Rate FiO2 04/07/18 07:00 97.9 48 16 107/54 (71) 96 Room Air 97.9 Labs: Labs: Laboratory Tests Test 04/06/18 13:05 04/06/18 13:16 04/06/18 15:49 White Blood Count 9.3 x10^3/uL (4.0-11.0) Red Blood Count 5.28 x10^6/uL (4.30-5.70) Hemoglobin 15.0 g/dL (13.0-17.5) Hematocrit 44.4 % (39.0-53.0) Mean Corpuscular Volume 84 fL (79-100) Mean Corpuscular Hemoglobin 28 pg (25-35) Mean Corpuscular Hemoglobin Concent 34 g/dL (31-37) Red Cell Distribution Width 16.4 % (11.5-14.5) Platelet Count 314 x10^3/uL (140-400) Neutrophils (%) (Auto) 81 % (31-73) Lymphocytes (%) (Auto) 13 % (24-48) Monocytes (%) (Auto) 6 % (0-9) Eosinophils (%) (Auto) 0 % (0-3) Basophils (%) (Auto) 0 % (0-3) Neutrophils # (Auto) 7.6 x10^3uL (1.8-7.7) Lymphocytes # (Auto) 1.2 x10^3/uL (1.0-4.8) Monocytes # (Auto) 0.6 x10^3/uL (0.0-1.1) Eosinophils # (Auto) 0.0 x10^3/uL (0.0-0.7) Basophils # (Auto) 0.0 x10^3/uL (0.0-0.2) Sodium Level 137 mmol/L (136-145) Potassium Level 4.1 mmol/L (3.5-5.1) Chloride Level 101 mmol/L (98-107) Carbon Dioxide Level 29 mmol/L (21-32) Anion Gap 7 (6-14) 17 mmol/L (6-14) Blood Urea Nitrogen 20 mg/dL (8-26) Creatinine 1.0 mg/dL (0.7-1.3) Estimated GFR (Cockcroft-Gault) 84.1 BUN/Creatinine Ratio 20 (6-20) Glucose Level 143 mg/dL (70-99) 137 mg/dL (70-99) Lactic Acid Level 1.3 mmol/L (0.4-2.0) Calcium Level 8.9 mg/dL (8.5-10.1) Total Bilirubin 0.6 mg/dL (0.2-1.0) Aspartate Amino Transf (AST/SGOT) 10 U/L (15-37) Alanine Aminotransferase (ALT/SGPT) 20 U/L (16-63) Alkaline Phosphatase 89 U/L (46-116) Total Protein 7.3 g/dL (6.4-8.2) Albumin 3.6 g/dL (3.4-5.0) Albumin/Globulin Ratio 1.0 (1.0-1.7) Lipase 75 U/L (73-393) Bedside Hemoglobin 15.6 g/dL (14-18) Bedside Hematocrit 46 % (37-52) Bedside Sodium 137 mmol/L (135-145) Bedside Potassium 4.0 mmol/L (3.5-5.0) Bedside Chloride 99 mmol/L (98-110) Bedside Total CO2 27 mmol/L (23-32) Bedside Blood Urea Nitrogen 21 mg/dL (8-26) Bedside Creatinine 0.9 mg/dL (0.5-1.4) Bedside Ionized Calcium (Luther) 1.09 mmol/L (1.13-1.32) Urine Collection Type Unknown Urine Color Yellow Urine Clarity Clear Urine pH 6.0 Urine Specific [place] >=1.030 Urine Protein Negative mg/dL (NEG-TRACE) Urine Glucose (UA) Negative mg/dL (NEG) Urine Ketones (Stick) Trace mg/dL (NEG) Urine Blood Negative (NEG) Urine Nitrite Negative (NEG) Urine Bilirubin Negative (NEG) Urine Urobilinogen Dipstick 1.0 mg/dL (0.2 mg/dL) Urine Leukocyte Esterase Negative (NEG) Urine RBC Occ /HPF (0-2) Urine WBC 0 /HPF (0-4) Urine Squamous Epithelial Cells Occ /LPF Urine Bacteria 0 /HPF (0-FEW) Urine Mucus Marked /LPF Allergies: Coded Allergies: No Known Drug Allergies (Unverified , 04/06/18) Medications: Current Medications Medications (Trade) Dose Ordered Sig/Rufino Route PRN Reason Start Time Stop Time Status Last Admin Dose Admin Sodium Chloride 1,000 ml @ 1,000 mls/hr 1X ONCE IV 04/06/18 13:15 04/06/18 14:14 DC 04/06/18 14:11 Morphine Sulfate (Morphine Sulfate) 4 mg 1X ONCE IV 04/06/18 13:15 04/06/18 13:21 DC 04/06/18 14:10 Ondansetron HCl (Zofran) 8 mg 1X ONCE IV 04/06/18 13:15 04/06/18 13:21 DC 04/06/18 14:11 Iohexol (Omnipaque 240 Mg/ml) 30 ml 1X ONCE PO 04/06/18 13:30 04/06/18 13:31 DC 04/06/18 13:30 Iohexol (Omnipaque 300 Mg/ml) 75 ml 1X ONCE IV 04/06/18 13:30 04/06/18 13:31 DC 04/06/18 13:30 Enoxaparin Sodium (Lovenox 40mg Syringe) 40 mg Q24H SQ 04/06/18 19:00 04/07/18 08:33 DC 04/06/18 19:03 Sodium Chloride 1,000 ml @ 125 mls/hr 1X ONCE IV 04/06/18 17:30 04/07/18 01:29 DC 04/06/18 18:16 Pantoprazole Sodium (PROTONIX VIAL for IV PUSH) 40 mg DAILYAC IVP 04/06/18 18:00 04/07/18 07:44 Imaging: Imaging: CT A/P w/ IV contrast IMPRESSION: 1. There is high-grade mid to distal small bowel obstruction. Point of transition is probably a right of midline supraumbilical hernia. 2. Moderate pelvic free fluid. PE: GEN: NAD HEENT: Atraumatic, PERRLA LUNGS: CTAB HEART: RRR, no murmurs ABD: NABS, S/ND/NT, no masses EXTREMITY: No edema SKIN: No rashes, no jaundice NEURO/PSYCH: A & O 3 A/P: A/P: Abd pain, n/v Abnormal CT - SBO w/ supraumbilical hernia Crohn's disease - diagnosed in 2006, previously on Remicade, currently Colazal w / intermittent steroids, last colonoscopy ~2008? H/o right colon and SBR -- Await interim imaging. Continue NPO and fluids for now. ?steroids - will review w/ Dr. Squires. DANNA VICTORIA Apr 07, 2018 09:18
[2018-04-07] MEDS ORDERED: PANTOPRAZOLE IV PUSH 40 MG VIAL. IVP SCH (09:30)
--- NOTE | 2018-04-07 10:15 | PDOC ---
PROGRESS NOTES Chief Complaint Chief Complaint SBO, seems to be clinically better Low-security incarceration History of Crohn's, history of partial colon sx in the past History of SBO in the past History of Present Illness History of Present Illness Seems better Minimal pain Passing gas Has been nothing by mouth Plan: acute abdominal series taken today If better films, than can start clears per GS IV fluids of still nothing by mouth (if films show still sbo) Vitals Vitals Vital Signs Date Time Temp Pulse Resp B/P (MAP) Pulse Ox O2 Delivery O2 Flow Rate FiO2 04/07/18 07:00 97.9 48 16 107/54 (71) 96 Room Air 97.9 Physical Exam General: Alert, Oriented X3, Cooperative, No acute distress Heart: Regular rate, Normal S1, Normal S2 Lungs: Clear Abdomen: Normal bowel sounds, Soft, Other (hernia reducible, postop laparoscopic and midline scar) Extremities: No clubbing Skin: No rashes Labs LABS Laboratory Tests Test 04/06/18 13:05 04/06/18 13:16 04/06/18 15:49 White Blood Count 9.3 x10^3/uL (4.0-11.0) Red Blood Count 5.28 x10^6/uL (4.30-5.70) Hemoglobin 15.0 g/dL (13.0-17.5) Hematocrit 44.4 % (39.0-53.0) Mean Corpuscular Volume 84 fL (79-100) Mean Corpuscular Hemoglobin 28 pg (25-35) Mean Corpuscular Hemoglobin Concent 34 g/dL (31-37) Red Cell Distribution Width 16.4 % (11.5-14.5) Platelet Count 314 x10^3/uL (140-400) Neutrophils (%) (Auto) 81 % (31-73) Lymphocytes (%) (Auto) 13 % (24-48) Monocytes (%) (Auto) 6 % (0-9) Eosinophils (%) (Auto) 0 % (0-3) Basophils (%) (Auto) 0 % (0-3) Neutrophils # (Auto) 7.6 x10^3uL (1.8-7.7) Lymphocytes # (Auto) 1.2 x10^3/uL (1.0-4.8) Monocytes # (Auto) 0.6 x10^3/uL (0.0-1.1) Eosinophils # (Auto) 0.0 x10^3/uL (0.0-0.7) Basophils # (Auto) 0.0 x10^3/uL (0.0-0.2) Sodium Level 137 mmol/L (136-145) Potassium Level 4.1 mmol/L (3.5-5.1) Chloride Level 101 mmol/L (98-107) Carbon Dioxide Level 29 mmol/L (21-32) Anion Gap 7 (6-14) 17 mmol/L (6-14) Blood Urea Nitrogen 20 mg/dL (8-26) Creatinine 1.0 mg/dL (0.7-1.3) Estimated GFR (Cockcroft-Gault) 84.1 BUN/Creatinine Ratio 20 (6-20) Glucose Level 143 mg/dL (70-99) 137 mg/dL (70-99) Lactic Acid Level 1.3 mmol/L (0.4-2.0) Calcium Level 8.9 mg/dL (8.5-10.1) Total Bilirubin 0.6 mg/dL (0.2-1.0) Aspartate Amino Transf (AST/SGOT) 10 U/L (15-37) Alanine Aminotransferase (ALT/SGPT) 20 U/L (16-63) Alkaline Phosphatase 89 U/L (46-116) Total Protein 7.3 g/dL (6.4-8.2) Albumin 3.6 g/dL (3.4-5.0) Albumin/Globulin Ratio 1.0 (1.0-1.7) Lipase 75 U/L (73-393) Bedside Hemoglobin 15.6 g/dL (14-18) Bedside Hematocrit 46 % (37-52) Bedside Sodium 137 mmol/L (135-145) Bedside Potassium 4.0 mmol/L (3.5-5.0) Bedside Chloride 99 mmol/L (98-110) Bedside Total CO2 27 mmol/L (23-32) Bedside Blood Urea Nitrogen 21 mg/dL (8-26) Bedside Creatinine 0.9 mg/dL (0.5-1.4) Bedside Ionized Calcium (Luther) 1.09 mmol/L (1.13-1.32) Urine Collection Type Unknown Urine Color Yellow Urine Clarity Clear Urine pH 6.0 Urine Specific [place] >=1.030 Urine Protein Negative mg/dL (NEG-TRACE) Urine Glucose (UA) Negative mg/dL (NEG) Urine Ketones (Stick) Trace mg/dL (NEG) Urine Blood Negative (NEG) Urine Nitrite Negative (NEG) Urine Bilirubin Negative (NEG) Urine Urobilinogen Dipstick 1.0 mg/dL (0.2 mg/dL) Urine Leukocyte Esterase Negative (NEG) Urine RBC Occ /HPF (0-2) Urine WBC 0 /HPF (0-4) Urine Squamous Epithelial Cells Occ /LPF Urine Bacteria 0 /HPF (0-FEW) Urine Mucus Marked /LPF Review of Systems Review of Systems A 14 point ROS was completed with the following noted as positive: Other systems reviewed and negative. \CONSTITUTIONAL: No fever or chills EYES: No recent changes SKIN: No rash or itching CARDIOVASCULAR: No chest pain, syncope, palpitations, or edema RESPIRATORY: No SOB or cough GASTROINTESTINAL: No nausea, vomiting or abdominal pain NEUROLOGICAL: No headaches or weakness ENDOCRINE: No cold or heat intolerance GENITOURINARY: No urgency or frequency of urination MUSCULOSKELETAL: No back pain or joint pain LYMPHATICS: No enlarged lymph nodes PSYCHIATRIC: No anxiety or depression Assessment and Plan Assessmemt and Plan Problems Medical Problems: (1) Small bowel obstruction Status: Acute Comment Review of Relevant I have reviewed the following items geovanna (where applicable) has been applied. Labs Laboratory Tests Test 04/06/18 13:05 04/06/18 13:16 04/06/18 15:49 White Blood Count 9.3 x10^3/uL (4.0-11.0) Red Blood Count 5.28 x10^6/uL (4.30-5.70) Hemoglobin 15.0 g/dL (13.0-17.5) Hematocrit 44.4 % (39.0-53.0) Mean Corpuscular Volume 84 fL (79-100) Mean Corpuscular Hemoglobin 28 pg (25-35) Mean Corpuscular Hemoglobin Concent 34 g/dL (31-37) Red Cell Distribution Width 16.4 % (11.5-14.5) Platelet Count 314 x10^3/uL (140-400) Neutrophils (%) (Auto) 81 % (31-73) Lymphocytes (%) (Auto) 13 % (24-48) Monocytes (%) (Auto) 6 % (0-9) Eosinophils (%) (Auto) 0 % (0-3) Basophils (%) (Auto) 0 % (0-3) Neutrophils # (Auto) 7.6 x10^3uL (1.8-7.7) Lymphocytes # (Auto) 1.2 x10^3/uL (1.0-4.8) Monocytes # (Auto) 0.6 x10^3/uL (0.0-1.1) Eosinophils # (Auto) 0.0 x10^3/uL (0.0-0.7) Basophils # (Auto) 0.0 x10^3/uL (0.0-0.2) Sodium Level 137 mmol/L (136-145) Potassium Level 4.1 mmol/L (3.5-5.1) Chloride Level 101 mmol/L (98-107) Carbon Dioxide Level 29 mmol/L (21-32) Anion Gap 7 (6-14) 17 mmol/L (6-14) Blood Urea Nitrogen 20 mg/dL (8-26) Creatinine 1.0 mg/dL (0.7-1.3) Estimated GFR (Cockcroft-Gault) 84.1 BUN/Creatinine Ratio 20 (6-20) Glucose Level 143 mg/dL (70-99) 137 mg/dL (70-99) Lactic Acid Level 1.3 mmol/L (0.4-2.0) Calcium Level 8.9 mg/dL (8.5-10.1) Total Bilirubin 0.6 mg/dL (0.2-1.0) Aspartate Amino Transf (AST/SGOT) 10 U/L (15-37) Alanine Aminotransferase (ALT/SGPT) 20 U/L (16-63) Alkaline Phosphatase 89 U/L (46-116) Total Protein 7.3 g/dL (6.4-8.2) Albumin 3.6 g/dL (3.4-5.0) Albumin/Globulin Ratio 1.0 (1.0-1.7) Lipase 75 U/L (73-393) Bedside Hemoglobin 15.6 g/dL (14-18) Bedside Hematocrit 46 % (37-52) Bedside Sodium 137 mmol/L (135-145) Bedside Potassium 4.0 mmol/L (3.5-5.0) Bedside Chloride 99 mmol/L (98-110) Bedside Total CO2 27 mmol/L (23-32) Bedside Blood Urea Nitrogen 21 mg/dL (8-26) Bedside Creatinine 0.9 mg/dL (0.5-1.4) Bedside Ionized Calcium (Luther) 1.09 mmol/L (1.13-1.32) Urine Collection Type Unknown Urine Color Yellow Urine Clarity Clear Urine pH 6.0 Urine Specific [place] >=1.030 Urine Protein Negative mg/dL (NEG-TRACE) Urine Glucose (UA) Negative mg/dL (NEG) Urine Ketones (Stick) Trace mg/dL (NEG) Urine Blood Negative (NEG) Urine Nitrite Negative (NEG) Urine Bilirubin Negative (NEG) Urine Urobilinogen Dipstick 1.0 mg/dL (0.2 mg/dL) Urine Leukocyte Esterase Negative (NEG) Urine RBC Occ /HPF (0-2) Urine WBC 0 /HPF (0-4) Urine Squamous Epithelial Cells Occ /LPF Urine Bacteria 0 /HPF (0-FEW) Urine Mucus Marked /LPF Laboratory Tests Test 04/06/18 13:05 04/06/18 13:16 04/06/18 15:49 White Blood Count 9.3 x10^3/uL (4.0-11.0) Red Blood Count 5.28 x10^6/uL (4.30-5.70) Hemoglobin 15.0 g/dL (13.0-17.5) Hematocrit 44.4 % (39.0-53.0) Mean Corpuscular Volume 84 fL (79-100) Mean Corpuscular Hemoglobin 28 pg (25-35) Mean Corpuscular Hemoglobin Concent 34 g/dL (31-37) Red Cell Distribution Width 16.4 % (11.5-14.5) Platelet Count 314 x10^3/uL (140-400) Neutrophils (%) (Auto) 81 % (31-73) Lymphocytes (%) (Auto) 13 % (24-48) Monocytes (%) (Auto) 6 % (0-9) Eosinophils (%) (Auto) 0 % (0-3) Basophils (%) (Auto) 0 % (0-3) Neutrophils # (Auto) 7.6 x10^3uL (1.8-7.7) Lymphocytes # (Auto) 1.2 x10^3/uL (1.0-4.8) Monocytes # (Auto) 0.6 x10^3/uL (0.0-1.1) Eosinophils # (Auto) 0.0 x10^3/uL (0.0-0.7) Basophils # (Auto) 0.0 x10^3/uL (0.0-0.2) Sodium Level 137 mmol/L (136-145) Potassium Level 4.1 mmol/L (3.5-5.1) Chloride Level 101 mmol/L (98-107) Carbon Dioxide Level 29 mmol/L (21-32) Anion Gap 7 (6-14) 17 mmol/L (6-14) Blood Urea Nitrogen 20 mg/dL (8-26) Creatinine 1.0 mg/dL (0.7-1.3) Estimated GFR (Cockcroft-Gault) 84.1 BUN/Creatinine Ratio 20 (6-20) Glucose Level 143 mg/dL (70-99) 137 mg/dL (70-99) Lactic Acid Level 1.3 mmol/L (0.4-2.0) Calcium Level 8.9 mg/dL (8.5-10.1) Total Bilirubin 0.6 mg/dL (0.2-1.0) Aspartate Amino Transf (AST/SGOT) 10 U/L (15-37) Alanine Aminotransferase (ALT/SGPT) 20 U/L (16-63) Alkaline Phosphatase 89 U/L (46-116) Total Protein 7.3 g/dL (6.4-8.2) Albumin 3.6 g/dL (3.4-5.0) Albumin/Globulin Ratio 1.0 (1.0-1.7) Lipase 75 U/L (73-393) Bedside Hemoglobin 15.6 g/dL (14-18) Bedside Hematocrit 46 % (37-52) Bedside Sodium 137 mmol/L (135-145) Bedside Potassium 4.0 mmol/L (3.5-5.0) Bedside Chloride 99 mmol/L (98-110) Bedside Total CO2 27 mmol/L (23-32) Bedside Blood Urea Nitrogen 21 mg/dL (8-26) Bedside Creatinine 0.9 mg/dL (0.5-1.4) Bedside Ionized Calcium (Luther) 1.09 mmol/L (1.13-1.32) Urine Collection Type Unknown Urine Color Yellow Urine Clarity Clear Urine pH 6.0 Urine Specific [place] >=1.030 Urine Protein Negative mg/dL (NEG-TRACE) Urine Glucose (UA) Negative mg/dL (NEG) Urine Ketones (Stick) Trace mg/dL (NEG) Urine Blood Negative (NEG) Urine Nitrite Negative (NEG) Urine Bilirubin Negative (NEG) Urine Urobilinogen Dipstick 1.0 mg/dL (0.2 mg/dL) Urine Leukocyte Esterase Negative (NEG) Urine RBC Occ /HPF (0-2) Urine WBC 0 /HPF (0-4) Urine Squamous Epithelial Cells Occ /LPF Urine Bacteria 0 /HPF (0-FEW) Urine Mucus Marked /LPF Medications Current Medications Sodium Chloride 1,000 ml @ 1,000 mls/hr 1X ONCE IV Last administered on at 14:11; Start 04/06/18 at 13:15; Stop 04/06/18 at 14:14; Status DC Morphine Sulfate (Morphine Sulfate) 4 mg 1X ONCE IV Last administered on at 14:10; Start 04/06/18 at 13:15; Stop 04/06/18 at 13:21; Status DC Ondansetron HCl (Zofran) 8 mg 1X ONCE IV Last administered on 04/06/18at 14:11 ; Start 04/06/18 at 13:15; Stop 04/06/18 at 13:21; Status DC Iohexol (Omnipaque 240 Mg/ml) 30 ml 1X ONCE PO Last administered on 04/06/18at 13:30; Start 04/06/18 at 13:30; Stop 04/06/18 at 13:31; Status DC Iohexol (Omnipaque 300 Mg/ml) 75 ml 1X ONCE IV Last administered on 04/06/18at 13:30; Start 04/06/18 at 13:30; Stop 04/06/18 at 13:31; Status DC Info (CONTRAST GIVEN -- Rx MONITORING) 1 each PRN DAILY PRN MC SEE COMMENTS; Start 04/06/18 at 13:30; Stop 04/08/18 at 13:29 Morphine Sulfate (Morphine Sulfate) 4 mg PRN Q2HR PRN IV PAIN; Start 04/06/18 at 15:45; Stop 04/07/18 at 15:44 Enoxaparin Sodium (Lovenox 40mg Syringe) 40 mg Q24H SQ Last administered on at 19:03; Start 04/06/18 at 19:00; Stop 04/07/18 at 08:33; Status DC Sodium Chloride 1,000 ml @ 125 mls/hr 1X ONCE IV Last administered on at 18:16; Start 04/06/18 at 17:30; Stop 04/07/18 at 01:29; Status DC Pantoprazole Sodium (PROTONIX VIAL for IV PUSH) 40 mg DAILYAC IVP Last administered on 04/07/18at 07:44; Start 04/06/18 at 18:00 Ondansetron HCl (Zofran) 4 mg PRN Q6HRS PRN IV NAUSEA/VOMITING; Start 04/07/18 at 08:45 Ondansetron HCl (Zofran Odt) 4 mg PRN Q6HRS PRN PO NAUSEA/VOMITING; Start 04/07 at 08:45 Pantoprazole Sodium (PROTONIX VIAL for IV PUSH) 40 mg DAILYAC IVP ; Start at 09:30; Status UNV Vitals/I & O Vital Sign - Last 24 Hours 04/06/18 04/06/18 04/06/18 04/06/18 12:51 12:57 14:10 15:14 Temp 98.0 98.0 Pulse 53 60 Resp 20 20 19 B/P (MAP) 166/88 (114) 166/88 (114) 134/67 (89) Pulse Ox 98 96 O2 Delivery Room Air Room Air 04/06/18 04/06/18 04/06/18 04/06/18 15:44 16:14 16:38 16:44 Temp 98.0 98.0 Pulse 52 54 55 54 Resp 19 19 18 18 B/P (MAP) 149/76 (100) 152/69 (96) 126/70 (88) 144/65 (91) Pulse Ox 96 96 92 95 O2 Delivery Room Air Room Air Room Air Room Air 04/06/18 04/06/18 04/07/18 04/07/18 19:00 23:00 03:04 07:00 Temp 98.5 98.4 99.5 97.9 98.5 98.4 99.5 97.9 Pulse 54 52 49 48 Resp 20 20 20 16 B/P (MAP) 130/64 (86) 137/64 (88) 111/72 (85) 107/54 (71) Pulse Ox 93 95 94 96 O2 Delivery Room Air Room Air Room Air Room Air Intake and Output 04/06/18 04/06/18 04/07/18 15:00 23:00 07:00 Intake Total 120 ml 1000 ml Balance 120 ml 1000 ml STEPH DONAHUE MD Apr 07, 2018 10:15
[2018-04-07 11:00] VITALS: BP 117/50
[2018-04-07] MEDS: IV NORMAL SALINE 1000ML BAG 1,000 ML IV SCH ×2 (11:00→21:50)
[2018-04-07 15:00] VITALS: BP 105/61
--- NOTE | 2018-04-07 17:02 | RAD ---
EXAM: Frontal view of the chest, AP views of the abdomen in upright and supine positions. CLINICAL INDICATION: SMALL BOWEL OBSTRUCTION COMPARISON: CT 04/06/2018 FINDINGS and IMPRESSION: The heart is not enlarged. Mediastinal and hilar contours are normal. No focal parenchymal airspace opacity. No pleural effusion or pneumothorax. No abnormal small or large bowel dilatation. Degree of small bowel dilatation seen on prior CT has significantly improved, now essentially resolved. Oral contrast material is now to level of the descending colon. Moderate colonic stool content. No abnormal soft tissue mass effect. No suspicious calcifications are seen. No free intraperitoneal gas. Electronically signed by: Sergey Allen MD (04/07/2018 4:58 PM) [facility]
[2018-04-07 19:00] VITALS: BP 118/56
[2018-04-07 23:00] VITALS: BP 116/68
[2018-04-08 03:15] VITALS: BP 110/57
[2018-04-08] MEDS: IV NORMAL SALINE 1000ML BAG 1,000 ML IV SCH ×2 (06:12→17:00)
[2018-04-08 07:00] VITALS: BP 116/67
[2018-04-08] MEDS ORDERED: BARIUM SULFATE 60% 355 ML SUSP PO ONE (08:30)
[2018-04-08] MEDS: PANTOPRAZOLE IV PUSH 40 MG VIAL. IVP SCH (09:03)
--- NOTE | 2018-04-08 09:13 | RAD ---
Indication: Small bowel obstruction, Crohn's disease. Subcortical hernia. Manager Creative image obtained for possible small bowel series. TECHNIQUE: Single supine AP view of the abdomen and pelvis COMPARISON: Previous study from 04/07/2018 FINDINGS: Significant residual contrast is seen in the colon. Loop of small bowel is dilated measuring 6 cm in the left hemiabdomen. Visualized bones are within normal limits. IMPRESSION: 1. Retained oral contrast in the colon. 2. Dilated loop of small bowel in the left hemiabdomen concerning for small bowel obstruction. Electronically signed by: Duc Bourne DO (04/08/2018 9:09 AM) [facility]
[2018-04-08 11:00] VITALS: BP 131/53
--- NOTE | 2018-04-08 11:53 | PDOC ---
PROGRESS NOTES Chief Complaint Chief Complaint 1.SBO, 2.Low-security incarceration 3.History of Crohn's, history of partial colon sx in the past 4..History of SBO in the past History of Present Illness History of Present Illness Minimal pain Passing gas not able to have BM, tolerating liquids will try miralax , if no results need bowel rest, no N/V Vitals Vitals Vital Signs Date Time Temp Pulse Resp B/P (MAP) Pulse Ox O2 Delivery O2 Flow Rate FiO2 04/08/18 08:15 Room Air 04/08/18 07:00 97.7 43 18 116/67 (83) 97 97.7 Physical Exam General: Alert, Oriented X3, Cooperative, No acute distress Heart: Regular rate, Normal S1, Normal S2 Lungs: Clear Abdomen: Normal bowel sounds, Soft, Other (hernia reducible, postop laparoscopic and midline scar) Extremities: No clubbing Skin: No rashes Assessment and Plan Assessmemt and Plan Problems Medical Problems: (1) Small bowel obstruction Status: Acute Comment Review of Relevant I have reviewed the following items geovanna (where applicable) has been applied. Labs Laboratory Tests Test 04/06/18 13:05 04/06/18 13:16 04/06/18 15:49 04/07/18 01:30 White Blood Count 9.3 x10^3/uL (4.0-11.0) Red Blood Count 5.28 x10^6/uL (4.30-5.70) Hemoglobin 15.0 g/dL (13.0-17.5) Hematocrit 44.4 % (39.0-53.0) Mean Corpuscular Volume 84 fL (79-100) Mean Corpuscular Hemoglobin 28 pg (25-35) Mean Corpuscular Hemoglobin Concent 34 g/dL (31-37) Red Cell Distribution Width 16.4 % (11.5-14.5) Platelet Count 314 x10^3/uL (140-400) Neutrophils (%) (Auto) 81 % (31-73) Lymphocytes (%) (Auto) 13 % (24-48) Monocytes (%) (Auto) 6 % (0-9) Eosinophils (%) (Auto) 0 % (0-3) Basophils (%) (Auto) 0 % (0-3) Neutrophils # (Auto) 7.6 x10^3uL (1.8-7.7) Lymphocytes # (Auto) 1.2 x10^3/uL (1.0-4.8) Monocytes # (Auto) 0.6 x10^3/uL (0.0-1.1) Eosinophils # (Auto) 0.0 x10^3/uL (0.0-0.7) Basophils # (Auto) 0.0 x10^3/uL (0.0-0.2) Sodium Level 137 mmol/L (136-145) Potassium Level 4.1 mmol/L (3.5-5.1) Chloride Level 101 mmol/L (98-107) Carbon Dioxide Level 29 mmol/L (21-32) Anion Gap 7 (6-14) 17 mmol/L (6-14) Blood Urea Nitrogen 20 mg/dL (8-26) Creatinine 1.0 mg/dL (0.7-1.3) Estimated GFR (Cockcroft-Gault) 84.1 BUN/Creatinine Ratio 20 (6-20) Glucose Level 143 mg/dL (70-99) 137 mg/dL (70-99) Lactic Acid Level 1.3 mmol/L (0.4-2.0) Calcium Level 8.9 mg/dL (8.5-10.1) Total Bilirubin 0.6 mg/dL (0.2-1.0) Aspartate Amino Transf (AST/SGOT) 10 U/L (15-37) Alanine Aminotransferase (ALT/SGPT) 20 U/L (16-63) Alkaline Phosphatase 89 U/L (46-116) Total Protein 7.3 g/dL (6.4-8.2) Albumin 3.6 g/dL (3.4-5.0) Albumin/Globulin Ratio 1.0 (1.0-1.7) Lipase 75 U/L (73-393) Bedside Hemoglobin 15.6 g/dL (14-18) Bedside Hematocrit 46 % (37-52) Bedside Sodium 137 mmol/L (135-145) Bedside Potassium 4.0 mmol/L (3.5-5.0) Bedside Chloride 99 mmol/L (98-110) Bedside Total CO2 27 mmol/L (23-32) Bedside Blood Urea Nitrogen 21 mg/dL (8-26) Bedside Creatinine 0.9 mg/dL (0.5-1.4) Bedside Ionized Calcium (Luther) 1.09 mmol/L (1.13-1.32) Urine Collection Type Unknown Urine Color Yellow Urine Clarity Clear Urine pH 6.0 Urine Specific [place] >=1.030 Urine Protein Negative mg/dL (NEG-TRACE) Urine Glucose (UA) Negative mg/dL (NEG) Urine Ketones (Stick) Trace mg/dL (NEG) Urine Blood Negative (NEG) Urine Nitrite Negative (NEG) Urine Bilirubin Negative (NEG) Urine Urobilinogen Dipstick 1.0 mg/dL (0.2 mg/dL) Urine Leukocyte Esterase Negative (NEG) Urine RBC Occ /HPF (0-2) Urine WBC 0 /HPF (0-4) Urine Squamous Epithelial Cells Occ /LPF Urine Bacteria 0 /HPF (0-FEW) Urine Mucus Marked /LPF Nasal Screen MRSA (PCR) Negative (Negative) Test 04/07/18 11:00 C-Reactive Protein, Quantitative 17.4 mg/L (0-3.3) Medications Current Medications Sodium Chloride 1,000 ml @ 1,000 mls/hr 1X ONCE IV Last administered on at 14:11; Start 04/06/18 at 13:15; Stop 04/06/18 at 14:14; Status DC Morphine Sulfate (Morphine Sulfate) 4 mg 1X ONCE IV Last administered on at 14:10; Start 04/06/18 at 13:15; Stop 04/06/18 at 13:21; Status DC Ondansetron HCl (Zofran) 8 mg 1X ONCE IV Last administered on 04/06/18at 14:11 ; Start 04/06/18 at 13:15; Stop 04/06/18 at 13:21; Status DC Iohexol (Omnipaque 240 Mg/ml) 30 ml 1X ONCE PO Last administered on 04/06/18at 13:30; Start 04/06/18 at 13:30; Stop 04/06/18 at 13:31; Status DC Iohexol (Omnipaque 300 Mg/ml) 75 ml 1X ONCE IV Last administered on 04/06/18at 13:30; Start 04/06/18 at 13:30; Stop 04/06/18 at 13:31; Status DC Info (CONTRAST GIVEN -- Rx MONITORING) 1 each PRN DAILY PRN MC SEE COMMENTS; Start 04/06/18 at 13:30; Stop 04/08/18 at 13:29 Morphine Sulfate (Morphine Sulfate) 4 mg PRN Q2HR PRN IV PAIN; Start 04/06/18 at 15:45; Stop 04/07/18 at 15:44; Status DC Enoxaparin Sodium (Lovenox 40mg Syringe) 40 mg Q24H SQ Last administered on at 19:03; Start 04/06/18 at 19:00; Stop 04/07/18 at 08:33; Status DC Sodium Chloride 1,000 ml @ 125 mls/hr 1X ONCE IV Last administered on at 18:16; Start 04/06/18 at 17:30; Stop 04/07/18 at 01:29; Status DC Pantoprazole Sodium (PROTONIX VIAL for IV PUSH) 40 mg DAILYAC IVP Last administered on 04/08/18at 09:03; Start 04/06/18 at 18:00 Ondansetron HCl (Zofran) 4 mg PRN Q6HRS PRN IV NAUSEA/VOMITING; Start 04/07/18 at 08:45 Ondansetron HCl (Zofran Odt) 4 mg PRN Q6HRS PRN PO NAUSEA/VOMITING; Start 04/07 at 08:45 Pantoprazole Sodium (PROTONIX VIAL for IV PUSH) 40 mg DAILYAC IVP ; Start at 09:30; Status UNV Sodium Chloride 1,000 ml @ 100 mls/hr Q10H IV Last administered on 04/08/18at 06:12; Start 04/07/18 at 11:00 Barium Sulfate (Liquid E-Z Paque) 710 ml 1X ONCE PO ; Start 04/08/18 at 08:30; Stop 04/08/18 at 08:31; Status DC Vitals/I & O Vital Sign - Last 24 Hours 04/07/18 04/07/18 04/07/18 04/07/18 15:00 19:00 20:00 23:00 Temp 99.1 98.2 98.1 99.1 98.2 98.1 Pulse 46 48 45 Resp 16 20 20 B/P (MAP) 105/61 (76) 118/56 (76) 116/68 (84) Pulse Ox 95 95 95 O2 Delivery Room Air Room Air Room Air Room Air 04/08/18 04/08/18 04/08/18 03:15 07:00 08:15 Temp 97.7 97.7 97.7 97.7 Pulse 40 43 Resp 20 18 B/P (MAP) 110/57 (74) 116/67 (83) Pulse Ox 96 97 O2 Delivery Room Air Room Air Room Air Intake and Output 04/07/18 04/07/18 04/08/18 15:00 23:00 07:00 Intake Total 200 ml Balance 200 ml CAIO WHYTE MD Apr 08, 2018 11:53
[2018-04-08] MEDS ORDERED: POLYETHYLENE GLYCOL 3350 17 GM PACKET. PO ONE (13:00)
--- NOTE | 2018-04-08 13:09 | PDOC ---
G I PROGRESS NOTE Reason for Follow-up Abd pain/hx Crohns Subjective Passing flatus Physical Exam Lungs clear CV S1 S2 ABD +BS, mildly distended Review of Relevant I have reviewed the following items geovanna (where applicable) has been applied. Labs Laboratory Tests Test 04/06/18 13:16 04/06/18 15:49 04/07/18 01:30 04/07/18 11:00 Bedside Hemoglobin 15.6 g/dL (14-18) Bedside Hematocrit 46 % (37-52) Bedside Sodium 137 mmol/L (135-145) Bedside Potassium 4.0 mmol/L (3.5-5.0) Bedside Chloride 99 mmol/L (98-110) Bedside Total CO2 27 mmol/L (23-32) Anion Gap 17 mmol/L (6-14) Bedside Blood Urea Nitrogen 21 mg/dL (8-26) Bedside Creatinine 0.9 mg/dL (0.5-1.4) Glucose Level 137 mg/dL (70-99) Bedside Ionized Calcium (Luther) 1.09 mmol/L (1.13-1.32) Urine Collection Type Unknown Urine Color Yellow Urine Clarity Clear Urine pH 6.0 Urine Specific [place] >=1.030 Urine Protein Negative mg/dL (NEG-TRACE) Urine Glucose (UA) Negative mg/dL (NEG) Urine Ketones (Stick) Trace mg/dL (NEG) Urine Blood Negative (NEG) Urine Nitrite Negative (NEG) Urine Bilirubin Negative (NEG) Urine Urobilinogen Dipstick 1.0 mg/dL (0.2 mg/dL) Urine Leukocyte Esterase Negative (NEG) Urine RBC Occ /HPF (0-2) Urine WBC 0 /HPF (0-4) Urine Squamous Epithelial Cells Occ /LPF Urine Bacteria 0 /HPF (0-FEW) Urine Mucus Marked /LPF Nasal Screen MRSA (PCR) Negative (Negative) C-Reactive Protein, Quantitative 17.4 mg/L (0-3.3) Medications Current Medications Sodium Chloride 1,000 ml @ 1,000 mls/hr 1X ONCE IV Last administered on at 14:11; Start 04/06/18 at 13:15; Stop 04/06/18 at 14:14; Status DC Morphine Sulfate (Morphine Sulfate) 4 mg 1X ONCE IV Last administered on at 14:10; Start 04/06/18 at 13:15; Stop 04/06/18 at 13:21; Status DC Ondansetron HCl (Zofran) 8 mg 1X ONCE IV Last administered on 04/06/18at 14:11 ; Start 04/06/18 at 13:15; Stop 04/06/18 at 13:21; Status DC Iohexol (Omnipaque 240 Mg/ml) 30 ml 1X ONCE PO Last administered on 04/06/18at 13:30; Start 04/06/18 at 13:30; Stop 04/06/18 at 13:31; Status DC Iohexol (Omnipaque 300 Mg/ml) 75 ml 1X ONCE IV Last administered on 04/06/18at 13:30; Start 04/06/18 at 13:30; Stop 04/06/18 at 13:31; Status DC Info (CONTRAST GIVEN -- Rx MONITORING) 1 each PRN DAILY PRN MC SEE COMMENTS; Start 04/06/18 at 13:30; Stop 04/08/18 at 13:29 Morphine Sulfate (Morphine Sulfate) 4 mg PRN Q2HR PRN IV PAIN; Start 04/06/18 at 15:45; Stop 04/07/18 at 15:44; Status DC Enoxaparin Sodium (Lovenox 40mg Syringe) 40 mg Q24H SQ Last administered on at 19:03; Start 04/06/18 at 19:00; Stop 04/07/18 at 08:33; Status DC Sodium Chloride 1,000 ml @ 125 mls/hr 1X ONCE IV Last administered on at 18:16; Start 04/06/18 at 17:30; Stop 04/07/18 at 01:29; Status DC Pantoprazole Sodium (PROTONIX VIAL for IV PUSH) 40 mg DAILYAC IVP Last administered on 04/08/18at 09:03; Start 04/06/18 at 18:00 Ondansetron HCl (Zofran) 4 mg PRN Q6HRS PRN IV NAUSEA/VOMITING; Start 04/07/18 at 08:45 Ondansetron HCl (Zofran Odt) 4 mg PRN Q6HRS PRN PO NAUSEA/VOMITING; Start 04/07 at 08:45 Pantoprazole Sodium (PROTONIX VIAL for IV PUSH) 40 mg DAILYAC IVP ; Start at 09:30; Status UNV Sodium Chloride 1,000 ml @ 100 mls/hr Q10H IV Last administered on 04/08/18at 06:12; Start 04/07/18 at 11:00 Barium Sulfate (Liquid E-Z Paque) 710 ml 1X ONCE PO ; Start 04/08/18 at 08:30; Stop 04/08/18 at 08:31; Status DC Polyethylene Glycol (miraLAX PACKET) 17 gm 1X ONCE PO ; Start 04/08/18 at 13:00 ; Stop 04/08/18 at 13:01; Status DC Vitals/I & O Vital Sign - Last 24 Hours 04/07/18 04/07/18 04/07/18 04/07/18 15:00 19:00 20:00 23:00 Temp 99.1 98.2 98.1 99.1 98.2 98.1 Pulse 46 48 45 Resp 16 20 20 B/P (MAP) 105/61 (76) 118/56 (76) 116/68 (84) Pulse Ox 95 95 95 O2 Delivery Room Air Room Air Room Air Room Air 04/08/18 04/08/18 04/08/18 04/08/18 03:15 07:00 08:15 11:00 Temp 97.7 97.7 98.1 97.7 97.7 98.1 Pulse 40 43 87 Resp 20 18 18 B/P (MAP) 110/57 (74) 116/67 (83) 131/53 (79) Pulse Ox 96 97 98 O2 Delivery Room Air Room Air Room Air Room Air Intake and Output 04/07/18 04/07/18 04/08/18 15:00 23:00 07:00 Intake Total 200 ml Balance 200 ml Problem List Problems Medical Problems: (1) Small bowel obstruction Status: Acute Assessment Abd pain- s/p ileo-colonic resection, with partial SBO, await SB series once contrast has passed to further assess, medical therapy in interim CHRIS BELLE MD Apr 08, 2018 13:09
--- NOTE | 2018-04-08 14:45 | PDOC ---
SURGICAL PROGRESS NOTE Subjective occasional crampy pain, passing some gas, no stool Vital Signs Vital Signs Date Time Temp Pulse Resp B/P (MAP) Pulse Ox O2 Delivery O2 Flow Rate FiO2 04/08/18 11:00 98.1 87 18 131/53 (79) 98 Room Air 98.1 I&O Intake and Output 04/08/18 07:00 Intake Total 200 ml Balance 200 ml Intake Oral 200 ml # Voids 5 PATIENT HAS A NEWMAN: No General: Alert, Oriented X3 Abdomen: Soft Labs Laboratory Tests Test 04/06/18 15:49 04/07/18 01:30 04/07/18 11:00 Urine Collection Type Unknown Urine Color Yellow Urine Clarity Clear Urine pH 6.0 Urine Specific Beverly >=1.030 Urine Protein Negative mg/dL (NEG-TRACE) Urine Glucose (UA) Negative mg/dL (NEG) Urine Ketones (Stick) Trace mg/dL (NEG) Urine Blood Negative (NEG) Urine Nitrite Negative (NEG) Urine Bilirubin Negative (NEG) Urine Urobilinogen Dipstick 1.0 mg/dL (0.2 mg/dL) Urine Leukocyte Esterase Negative (NEG) Urine RBC Occ /HPF (0-2) Urine WBC 0 /HPF (0-4) Urine Squamous Epithelial Cells Occ /LPF Urine Bacteria 0 /HPF (0-FEW) Urine Mucus Marked /LPF Nasal Screen MRSA (PCR) Negative (Negative) C-Reactive Protein, Quantitative 17.4 mg/L (0-3.3) I have reviewed the following plain films reviewed Problem List Problems Medical Problems: (1) Small bowel obstruction Status: Acute Assessment/Plan pSBO 2/2 recurrent Crohn's vs VIH continue clears SBFT when able SOPHIE JACKSON MD Apr 08, 2018 14:45
[2018-04-08 15:00] VITALS: BP 114/63
[2018-04-08 20:01] VITALS: BP 116/60
[2018-04-08 23:23] VITALS: BP 113/61
[2018-04-09 02:58] VITALS: BP 116/62
[2018-04-09] MEDS: IV NORMAL SALINE 1000ML BAG 1,000 ML IV SCH ×3 (03:46→23:00)
[2018-04-09 06:55] LABS: ALBUMIN 2.9 g/dL (3.4-5.0); CALCIUM 8.2 mg/dL (8.5-10.1); CREATININE 0.9 mg/dL (0.7-1.3); POTASSIUM 3.8 mmol/L (3.5-5.1); TOTAL BILIRUBIN 0.5 mg/dL (0.2-1.0); TOTAL PROTEIN 5.8 g/dL (6.4-8.2)
[2018-04-09 07:00] VITALS: BP 105/48
[2018-04-09 07:01] LABS: HEMATOCRIT 39.8 % (39.0-53.0); HEMOGLOBIN 13.4 g/dL (13.0-17.5); RED BLOOD COUNT 4.73 x10^6/uL (4.30-5.70); WHITE BLOOD COUNT 8.9 x10^3/uL (4.0-11.0)
[2018-04-09] MEDS: PANTOPRAZOLE IV PUSH 40 MG VIAL. IVP SCH (08:07)
--- NOTE | 2018-04-09 09:33 | RAD ---
KUB: Reason for examination: Small bowel obstruction. Crohn's disease. Comparison is made to previous study dated 04/08/2018. There is no gross organomegaly. Psoas muscles appear symmetric. The bowel gas pattern again shows contrast within the colon predominantly in the descending and sigmoid colon and in the rectum. There continues to be dilated loops of small intestine but this is improved when compared to previous exam. Appearance suggests partial small bowel obstruction. No acute bony abnormalities are seen. IMPRESSION: Oral contrast still present in the descending and sigmoid colon and rectum. Dilated small intestine but improved when compared to previous exam. Findings would be consistent with a partial small bowel obstruction. Electronically signed by: Chanelle Prabhakar MD (04/09/2018 9:29 AM) [facility]
[2018-04-09 11:00] VITALS: BP 118/71
--- NOTE | 2018-04-09 11:01 | PDOC ---
SURGICAL PROGRESS NOTE Subjective up walking in the halls has had three stools this AM occasional "discomfort", but not really painful Vital Signs Vital Signs Date Time Temp Pulse Resp B/P (MAP) Pulse Ox O2 Delivery O2 Flow Rate FiO2 04/09/18 08:00 Room Air 04/09/18 07:00 97.7 47 18 105/48 (67) 95 97.7 I&O Intake and Output 04/09/18 07:00 Intake Total 1550 ml Balance 1550 ml Intake Oral 1550 ml # Voids 2 # Bowel Movements 1 PATIENT HAS A NEWMAN: No General: Alert, Oriented X3, No acute distress Labs Laboratory Tests Test 04/07/18 11:00 04/09/18 05:00 04/09/18 05:50 C-Reactive Protein, Quantitative 17.4 mg/L (0-3.3) White Blood Count 8.9 x10^3/uL (4.0-11.0) Red Blood Count 4.73 x10^6/uL (4.30-5.70) Hemoglobin 13.4 g/dL (13.0-17.5) Hematocrit 39.8 % (39.0-53.0) Mean Corpuscular Volume 84 fL (79-100) Mean Corpuscular Hemoglobin 28 pg (25-35) Mean Corpuscular Hemoglobin Concent 34 g/dL (31-37) Red Cell Distribution Width 16.0 % (11.5-14.5) Platelet Count 269 x10^3/uL (140-400) Sodium Level 140 mmol/L (136-145) Potassium Level 3.8 mmol/L (3.5-5.1) Chloride Level 104 mmol/L (98-107) Carbon Dioxide Level 30 mmol/L (21-32) Anion Gap 6 (6-14) Blood Urea Nitrogen 11 mg/dL (8-26) Creatinine 0.9 mg/dL (0.7-1.3) Estimated GFR (Cockcroft-Gault) 95.0 BUN/Creatinine Ratio 12 (6-20) Glucose Level 98 mg/dL (70-99) Calcium Level 8.2 mg/dL (8.5-10.1) Total Bilirubin 0.5 mg/dL (0.2-1.0) Aspartate Amino Transf (AST/SGOT) 12 U/L (15-37) Alanine Aminotransferase (ALT/SGPT) 21 U/L (16-63) Alkaline Phosphatase 77 U/L (46-116) Total Protein 5.8 g/dL (6.4-8.2) Albumin 2.9 g/dL (3.4-5.0) Albumin/Globulin Ratio 1.0 (1.0-1.7) Laboratory Tests Test 04/09/18 05:00 04/09/18 05:50 White Blood Count 8.9 x10^3/uL (4.0-11.0) Red Blood Count 4.73 x10^6/uL (4.30-5.70) Hemoglobin 13.4 g/dL (13.0-17.5) Hematocrit 39.8 % (39.0-53.0) Mean Corpuscular Volume 84 fL (79-100) Mean Corpuscular Hemoglobin 28 pg (25-35) Mean Corpuscular Hemoglobin Concent 34 g/dL (31-37) Red Cell Distribution Width 16.0 % (11.5-14.5) Platelet Count 269 x10^3/uL (140-400) Sodium Level 140 mmol/L (136-145) Potassium Level 3.8 mmol/L (3.5-5.1) Chloride Level 104 mmol/L (98-107) Carbon Dioxide Level 30 mmol/L (21-32) Anion Gap 6 (6-14) Blood Urea Nitrogen 11 mg/dL (8-26) Creatinine 0.9 mg/dL (0.7-1.3) Estimated GFR (Cockcroft-Gault) 95.0 BUN/Creatinine Ratio 12 (6-20) Glucose Level 98 mg/dL (70-99) Calcium Level 8.2 mg/dL (8.5-10.1) Total Bilirubin 0.5 mg/dL (0.2-1.0) Aspartate Amino Transf (AST/SGOT) 12 U/L (15-37) Alanine Aminotransferase (ALT/SGPT) 21 U/L (16-63) Alkaline Phosphatase 77 U/L (46-116) Total Protein 5.8 g/dL (6.4-8.2) Albumin 2.9 g/dL (3.4-5.0) Albumin/Globulin Ratio 1.0 (1.0-1.7) I have reviewed the following KUB from this AM reviewed Problem List Problems Medical Problems: (1) Small bowel obstruction Status: Acute Assessment/Plan pSBO mechanical vs Crohn's flare, clinically improved advance to full liquids SBFT tomorrow SOPHIE JACKSON MD Apr 09, 2018 11:01
--- NOTE | 2018-04-09 14:44 | PDOC ---
G I PROGRESS NOTE Reason for Follow-up Crohns/abd pain Subjective Three BMS overnight Physical Exam Lungs clear CV S1 S2 ABD +BS, soft, mild tenderness periumbilical region Review of Relevant I have reviewed the following items geovanna (where applicable) has been applied. Labs Laboratory Tests Test 04/09/18 05:00 04/09/18 05:50 White Blood Count 8.9 x10^3/uL (4.0-11.0) Red Blood Count 4.73 x10^6/uL (4.30-5.70) Hemoglobin 13.4 g/dL (13.0-17.5) Hematocrit 39.8 % (39.0-53.0) Mean Corpuscular Volume 84 fL (79-100) Mean Corpuscular Hemoglobin 28 pg (25-35) Mean Corpuscular Hemoglobin Concent 34 g/dL (31-37) Red Cell Distribution Width 16.0 % (11.5-14.5) Platelet Count 269 x10^3/uL (140-400) Sodium Level 140 mmol/L (136-145) Potassium Level 3.8 mmol/L (3.5-5.1) Chloride Level 104 mmol/L (98-107) Carbon Dioxide Level 30 mmol/L (21-32) Anion Gap 6 (6-14) Blood Urea Nitrogen 11 mg/dL (8-26) Creatinine 0.9 mg/dL (0.7-1.3) Estimated GFR (Cockcroft-Gault) 95.0 BUN/Creatinine Ratio 12 (6-20) Glucose Level 98 mg/dL (70-99) Calcium Level 8.2 mg/dL (8.5-10.1) Total Bilirubin 0.5 mg/dL (0.2-1.0) Aspartate Amino Transf (AST/SGOT) 12 U/L (15-37) Alanine Aminotransferase (ALT/SGPT) 21 U/L (16-63) Alkaline Phosphatase 77 U/L (46-116) Total Protein 5.8 g/dL (6.4-8.2) Albumin 2.9 g/dL (3.4-5.0) Albumin/Globulin Ratio 1.0 (1.0-1.7) Laboratory Tests Test 04/09/18 05:00 04/09/18 05:50 White Blood Count 8.9 x10^3/uL (4.0-11.0) Red Blood Count 4.73 x10^6/uL (4.30-5.70) Hemoglobin 13.4 g/dL (13.0-17.5) Hematocrit 39.8 % (39.0-53.0) Mean Corpuscular Volume 84 fL (79-100) Mean Corpuscular Hemoglobin 28 pg (25-35) Mean Corpuscular Hemoglobin Concent 34 g/dL (31-37) Red Cell Distribution Width 16.0 % (11.5-14.5) Platelet Count 269 x10^3/uL (140-400) Sodium Level 140 mmol/L (136-145) Potassium Level 3.8 mmol/L (3.5-5.1) Chloride Level 104 mmol/L (98-107) Carbon Dioxide Level 30 mmol/L (21-32) Anion Gap 6 (6-14) Blood Urea Nitrogen 11 mg/dL (8-26) Creatinine 0.9 mg/dL (0.7-1.3) Estimated GFR (Cockcroft-Gault) 95.0 BUN/Creatinine Ratio 12 (6-20) Glucose Level 98 mg/dL (70-99) Calcium Level 8.2 mg/dL (8.5-10.1) Total Bilirubin 0.5 mg/dL (0.2-1.0) Aspartate Amino Transf (AST/SGOT) 12 U/L (15-37) Alanine Aminotransferase (ALT/SGPT) 21 U/L (16-63) Alkaline Phosphatase 77 U/L (46-116) Total Protein 5.8 g/dL (6.4-8.2) Albumin 2.9 g/dL (3.4-5.0) Albumin/Globulin Ratio 1.0 (1.0-1.7) Medications Current Medications Sodium Chloride 1,000 ml @ 1,000 mls/hr 1X ONCE IV Last administered on at 14:11; Start 04/06/18 at 13:15; Stop 04/06/18 at 14:14; Status DC Morphine Sulfate (Morphine Sulfate) 4 mg 1X ONCE IV Last administered on at 14:10; Start 04/06/18 at 13:15; Stop 04/06/18 at 13:21; Status DC Ondansetron HCl (Zofran) 8 mg 1X ONCE IV Last administered on 04/06/18at 14:11 ; Start 04/06/18 at 13:15; Stop 04/06/18 at 13:21; Status DC Iohexol (Omnipaque 240 Mg/ml) 30 ml 1X ONCE PO Last administered on 04/06/18at 13:30; Start 04/06/18 at 13:30; Stop 04/06/18 at 13:31; Status DC Iohexol (Omnipaque 300 Mg/ml) 75 ml 1X ONCE IV Last administered on 04/06/18at 13:30; Start 04/06/18 at 13:30; Stop 04/06/18 at 13:31; Status DC Info (CONTRAST GIVEN -- Rx MONITORING) 1 each PRN DAILY PRN MC SEE COMMENTS; Start 04/06/18 at 13:30; Stop 04/08/18 at 13:29; Status DC Morphine Sulfate (Morphine Sulfate) 4 mg PRN Q2HR PRN IV PAIN; Start 04/06/18 at 15:45; Stop 04/07/18 at 15:44; Status DC Enoxaparin Sodium (Lovenox 40mg Syringe) 40 mg Q24H SQ Last administered on at 19:03; Start 04/06/18 at 19:00; Stop 04/07/18 at 08:33; Status DC Sodium Chloride 1,000 ml @ 125 mls/hr 1X ONCE IV Last administered on at 18:16; Start 04/06/18 at 17:30; Stop 04/07/18 at 01:29; Status DC Pantoprazole Sodium (PROTONIX VIAL for IV PUSH) 40 mg DAILYAC IVP Last administered on 04/09/18at 08:07; Start 04/06/18 at 18:00 Ondansetron HCl (Zofran) 4 mg PRN Q6HRS PRN IV NAUSEA/VOMITING; Start 04/07/18 at 08:45 Ondansetron HCl (Zofran Odt) 4 mg PRN Q6HRS PRN PO NAUSEA/VOMITING; Start 04/07 at 08:45 Pantoprazole Sodium (PROTONIX VIAL for IV PUSH) 40 mg DAILYAC IVP ; Start at 09:30; Status UNV Sodium Chloride 1,000 ml @ 100 mls/hr Q10H IV Last administered on 04/09/18at 03:46; Start 04/07/18 at 11:00 Barium Sulfate (Liquid E-Z Paque) 710 ml 1X ONCE PO ; Start 04/08/18 at 08:30; Stop 04/08/18 at 08:31; Status DC Polyethylene Glycol (miraLAX PACKET) 17 gm 1X ONCE PO Last administered on at 12:45; Start 04/08/18 at 13:00; Stop 04/08/18 at 13:01; Status DC Vitals/I & O Vital Sign - Last 24 Hours 04/08/18 04/08/18 04/08/18 04/08/18 15:00 19:00 20:00 20:01 Temp 98.1 98.6 98.1 98.6 Pulse 46 43 Resp 19 18 B/P (MAP) 114/63 (80) 116/60 (78) Pulse Ox 98 96 O2 Delivery Room Air Room Air Room Air Room Air 04/08/18 04/09/18 04/09/18 04/09/18 23:23 02:58 07:00 08:00 Temp 98.4 98.0 97.7 98.4 98.0 97.7 Pulse 50 45 47 Resp 18 18 18 B/P (MAP) 113/61 (78) 116/62 (80) 105/48 (67) Pulse Ox 96 98 95 O2 Delivery Room Air Room Air Room Air Room Air 04/09/18 11:00 Pulse 54 Resp 18 B/P (MAP) 118/71 (87) Pulse Ox 97 O2 Delivery Room Air Intake and Output 04/08/18 04/08/18 04/09/18 15:01 23:01 07:01 Intake Total 750 ml 800 ml Balance 750 ml 800 ml Problem List Problems Medical Problems: (1) Small bowel obstruction Status: Acute Assessment Partial SBO- with Crohns and prior resection, await SB series to assess for recurrent stricture likely anastomotic and/or proximal to prior surgery, cpm CHRIS BELLE MD Apr 09, 2018 14:44
[2018-04-09 15:00] VITALS: BP 124/73
--- NOTE | 2018-04-09 15:02 | PDOC ---
PROGRESS NOTES Chief Complaint Chief Complaint 1.SBO, 2.Low-security incarceration 3.History of Crohn's, history of partial colon sx in the past 4..History of SBO in the past History of Present Illness History of Present Illness Minimal pain had 2 small BM today but very thin diameter for stool for SBFT in AM Vitals Vitals Vital Signs Date Time Temp Pulse Resp B/P (MAP) Pulse Ox O2 Delivery O2 Flow Rate FiO2 04/09/18 11:00 54 18 118/71 (87) 97 Room Air 04/09/18 07:00 97.7 97.7 Physical Exam General: Alert, Oriented X3, No acute distress Heart: Regular rate, Normal S1, Normal S2 Lungs: Clear Abdomen: Soft Extremities: No clubbing Skin: No rashes Labs LABS Laboratory Tests Test 04/09/18 05:00 04/09/18 05:50 White Blood Count 8.9 x10^3/uL (4.0-11.0) Red Blood Count 4.73 x10^6/uL (4.30-5.70) Hemoglobin 13.4 g/dL (13.0-17.5) Hematocrit 39.8 % (39.0-53.0) Mean Corpuscular Volume 84 fL (79-100) Mean Corpuscular Hemoglobin 28 pg (25-35) Mean Corpuscular Hemoglobin Concent 34 g/dL (31-37) Red Cell Distribution Width 16.0 % (11.5-14.5) Platelet Count 269 x10^3/uL (140-400) Sodium Level 140 mmol/L (136-145) Potassium Level 3.8 mmol/L (3.5-5.1) Chloride Level 104 mmol/L (98-107) Carbon Dioxide Level 30 mmol/L (21-32) Anion Gap 6 (6-14) Blood Urea Nitrogen 11 mg/dL (8-26) Creatinine 0.9 mg/dL (0.7-1.3) Estimated GFR (Cockcroft-Gault) 95.0 BUN/Creatinine Ratio 12 (6-20) Glucose Level 98 mg/dL (70-99) Calcium Level 8.2 mg/dL (8.5-10.1) Total Bilirubin 0.5 mg/dL (0.2-1.0) Aspartate Amino Transf (AST/SGOT) 12 U/L (15-37) Alanine Aminotransferase (ALT/SGPT) 21 U/L (16-63) Alkaline Phosphatase 77 U/L (46-116) Total Protein 5.8 g/dL (6.4-8.2) Albumin 2.9 g/dL (3.4-5.0) Albumin/Globulin Ratio 1.0 (1.0-1.7) Assessment and Plan Assessmemt and Plan Problems Medical Problems: (1) Small bowel obstruction Status: Acute Comment Review of Relevant I have reviewed the following items geovanna (where applicable) has been applied. Labs Laboratory Tests Test 04/09/18 05:00 04/09/18 05:50 White Blood Count 8.9 x10^3/uL (4.0-11.0) Red Blood Count 4.73 x10^6/uL (4.30-5.70) Hemoglobin 13.4 g/dL (13.0-17.5) Hematocrit 39.8 % (39.0-53.0) Mean Corpuscular Volume 84 fL (79-100) Mean Corpuscular Hemoglobin 28 pg (25-35) Mean Corpuscular Hemoglobin Concent 34 g/dL (31-37) Red Cell Distribution Width 16.0 % (11.5-14.5) Platelet Count 269 x10^3/uL (140-400) Sodium Level 140 mmol/L (136-145) Potassium Level 3.8 mmol/L (3.5-5.1) Chloride Level 104 mmol/L (98-107) Carbon Dioxide Level 30 mmol/L (21-32) Anion Gap 6 (6-14) Blood Urea Nitrogen 11 mg/dL (8-26) Creatinine 0.9 mg/dL (0.7-1.3) Estimated GFR (Cockcroft-Gault) 95.0 BUN/Creatinine Ratio 12 (6-20) Glucose Level 98 mg/dL (70-99) Calcium Level 8.2 mg/dL (8.5-10.1) Total Bilirubin 0.5 mg/dL (0.2-1.0) Aspartate Amino Transf (AST/SGOT) 12 U/L (15-37) Alanine Aminotransferase (ALT/SGPT) 21 U/L (16-63) Alkaline Phosphatase 77 U/L (46-116) Total Protein 5.8 g/dL (6.4-8.2) Albumin 2.9 g/dL (3.4-5.0) Albumin/Globulin Ratio 1.0 (1.0-1.7) Laboratory Tests Test 04/09/18 05:00 04/09/18 05:50 White Blood Count 8.9 x10^3/uL (4.0-11.0) Red Blood Count 4.73 x10^6/uL (4.30-5.70) Hemoglobin 13.4 g/dL (13.0-17.5) Hematocrit 39.8 % (39.0-53.0) Mean Corpuscular Volume 84 fL (79-100) Mean Corpuscular Hemoglobin 28 pg (25-35) Mean Corpuscular Hemoglobin Concent 34 g/dL (31-37) Red Cell Distribution Width 16.0 % (11.5-14.5) Platelet Count 269 x10^3/uL (140-400) Sodium Level 140 mmol/L (136-145) Potassium Level 3.8 mmol/L (3.5-5.1) Chloride Level 104 mmol/L (98-107) Carbon Dioxide Level 30 mmol/L (21-32) Anion Gap 6 (6-14) Blood Urea Nitrogen 11 mg/dL (8-26) Creatinine 0.9 mg/dL (0.7-1.3) Estimated GFR (Cockcroft-Gault) 95.0 BUN/Creatinine Ratio 12 (6-20) Glucose Level 98 mg/dL (70-99) Calcium Level 8.2 mg/dL (8.5-10.1) Total Bilirubin 0.5 mg/dL (0.2-1.0) Aspartate Amino Transf (AST/SGOT) 12 U/L (15-37) Alanine Aminotransferase (ALT/SGPT) 21 U/L (16-63) Alkaline Phosphatase 77 U/L (46-116) Total Protein 5.8 g/dL (6.4-8.2) Albumin 2.9 g/dL (3.4-5.0) Albumin/Globulin Ratio 1.0 (1.0-1.7) Medications Current Medications Sodium Chloride 1,000 ml @ 1,000 mls/hr 1X ONCE IV Last administered on at 14:11; Start 04/06/18 at 13:15; Stop 04/06/18 at 14:14; Status DC Morphine Sulfate (Morphine Sulfate) 4 mg 1X ONCE IV Last administered on at 14:10; Start 04/06/18 at 13:15; Stop 04/06/18 at 13:21; Status DC Ondansetron HCl (Zofran) 8 mg 1X ONCE IV Last administered on 04/06/18at 14:11 ; Start 04/06/18 at 13:15; Stop 04/06/18 at 13:21; Status DC Iohexol (Omnipaque 240 Mg/ml) 30 ml 1X ONCE PO Last administered on 04/06/18at 13:30; Start 04/06/18 at 13:30; Stop 04/06/18 at 13:31; Status DC Iohexol (Omnipaque 300 Mg/ml) 75 ml 1X ONCE IV Last administered on 04/06/18at 13:30; Start 04/06/18 at 13:30; Stop 04/06/18 at 13:31; Status DC Info (CONTRAST GIVEN -- Rx MONITORING) 1 each PRN DAILY PRN MC SEE COMMENTS; Start 04/06/18 at 13:30; Stop 04/08/18 at 13:29; Status DC Morphine Sulfate (Morphine Sulfate) 4 mg PRN Q2HR PRN IV PAIN; Start 04/06/18 at 15:45; Stop 04/07/18 at 15:44; Status DC Enoxaparin Sodium (Lovenox 40mg Syringe) 40 mg Q24H SQ Last administered on at 19:03; Start 04/06/18 at 19:00; Stop 04/07/18 at 08:33; Status DC Sodium Chloride 1,000 ml @ 125 mls/hr 1X ONCE IV Last administered on at 18:16; Start 04/06/18 at 17:30; Stop 04/07/18 at 01:29; Status DC Pantoprazole Sodium (PROTONIX VIAL for IV PUSH) 40 mg DAILYAC IVP Last administered on 04/09/18at 08:07; Start 04/06/18 at 18:00 Ondansetron HCl (Zofran) 4 mg PRN Q6HRS PRN IV NAUSEA/VOMITING; Start 04/07/18 at 08:45 Ondansetron HCl (Zofran Odt) 4 mg PRN Q6HRS PRN PO NAUSEA/VOMITING; Start 04/07 at 08:45 Pantoprazole Sodium (PROTONIX VIAL for IV PUSH) 40 mg DAILYAC IVP ; Start at 09:30; Status UNV Sodium Chloride 1,000 ml @ 100 mls/hr Q10H IV Last administered on 04/09/18at 13:00; Start 04/07/18 at 11:00 Barium Sulfate (Liquid E-Z Paque) 710 ml 1X ONCE PO ; Start 04/08/18 at 08:30; Stop 04/08/18 at 08:31; Status DC Polyethylene Glycol (miraLAX PACKET) 17 gm 1X ONCE PO Last administered on at 12:45; Start 04/08/18 at 13:00; Stop 04/08/18 at 13:01; Status DC Vitals/I & O Vital Sign - Last 24 Hours 04/08/18 04/08/18 04/08/18 04/08/18 19:00 20:00 20:01 23:23 Temp 98.6 98.4 98.6 98.4 Pulse 43 50 Resp 18 18 B/P (MAP) 116/60 (78) 113/61 (78) Pulse Ox 96 96 O2 Delivery Room Air Room Air Room Air Room Air 04/09/18 04/09/18 04/09/18 04/09/18 02:58 07:00 08:00 11:00 Temp 98.0 97.7 98.0 97.7 Pulse 45 47 54 Resp 18 18 18 B/P (MAP) 116/62 (80) 105/48 (67) 118/71 (87) Pulse Ox 98 95 97 O2 Delivery Room Air Room Air Room Air Room Air Intake and Output 04/08/18 04/08/18 04/09/18 15:01 23:01 07:01 Intake Total 750 ml 800 ml Balance 750 ml 800 ml CAIO WHYTE MD Apr 09, 2018 15:02
[2018-04-09 19:00] VITALS: BP 112/70
[2018-04-09 23:00] VITALS: BP 106/55
[2018-04-10 03:00] VITALS: BP 114/61
[2018-04-10] MEDS ORDERED: BARIUM SULFATE 60% 355 ML SUSP PO ONE (07:15)
--- NOTE | 2018-04-10 10:18 | PDOC ---
PROGRESS NOTES Chief Complaint Chief Complaint 1.SBO, Dilated mid small bowel loops compatible with partial small bowel obstruction. 2.Low-security incarceration 3.History of Crohn's, history of partial colon sx in the past 4..History of SBO in the past 5. mod protein-caloric malnutrition History of Present Illness History of Present Illness Minimal pain had 2 small BM today but very thin diameter for stool for SBFT in AM Vitals Vitals Vital Signs Date Time Temp Pulse Resp B/P (MAP) Pulse Ox O2 Delivery O2 Flow Rate FiO2 04/10/18 03:00 98.3 43 20 114/61 (78) 96 Room Air 98.3 Physical Exam General: Alert, Oriented X3, Cooperative, No acute distress Heart: Regular rate, Normal S1, Normal S2, No murmurs Lungs: Clear Abdomen: Soft Extremities: No clubbing, No edema Skin: No rashes, No breakdown, No significant lesion Labs LABS HISTORY: Crohn's disease with abdominal pain, small bowel obstruction The preliminary abdominal image demonstrates residual contrast within nondilated left colon. There is moderate gaseous distention of a small bowel loop in the left upper quadrant. Surgical sutures are present in the right mid to lower abdomen. Overhead and spot images were obtained following oral ingestion of liquid barium. 3.8 minutes of fluoroscopy time was utilized. 7 fluoroscopic spot images were recorded. The duodenum is unremarkable. There is mild to moderate distention of mid small bowel loops. A discrete transition zone is not identified. The contrast material reached the cecum at 2 hours. By history the terminal ileum has been resected. Fluoroscopic evaluation of the distal ileum demonstrates spasticity and mild mucosal irregularity up to the ileocolic anastomosis. This area does intermittently open up without evidence of high-grade obstruction. Tangential views of the anterior aspect of the midabdomen demonstrate herniation of a small segment of what is probably small bowel. There is no evidence of inflammation of this loop. This small hernia was well demonstrated on the CT study of 04/06/2018, and at that time there was herniation of a short segment of small bowel as well as a knuckle of colon. IMPRESSION: 1. Dilated mid small bowel loops compatible with partial small bowel obstruction. A definite transition point was not identified. 2. Small ventral hernia containing a short segment of small bowel. 3. Abnormal distal ileum extending to the ileocolic anastomosis compatible with the history of Crohn's disease. No high-grade obstruction is currently seen at that level. Electronically signed by: Long Torres MD (04/10/2018 12:33 PM) [facility] REASON: SBO, Crohn's, supraumbilical hernia. NETWORK CABLE INSTALLER IMAGE FOR SBS PROCEDURE: KUB KUB: Reason for examination: Small bowel obstruction. Crohn's disease. Comparison is made to previous study dated 04/08/2018. There is no gross organomegaly. Psoas muscles appear symmetric. The bowel gas pattern again shows contrast within the colon predominantly in the descending and sigmoid colon and in the rectum. There continues to be dilated loops of small intestine but this is improved when compared to previous exam. Appearance suggests partial small bowel obstruction. No acute bony abnormalities are seen. IMPRESSION: Oral contrast still present in the descending and sigmoid colon and rectum. Dilated small intestine but improved when compared to previous exam. Findings would be consistent with a partial small bowel obstruction. Electronically signed by: Chanelle Prabhakar MD (04/09/2018 9:29 AM) [facility] Assessment and Plan Assessmemt and Plan Problems Medical Problems: (1) Small bowel obstruction Status: Acute Comment Review of Relevant I have reviewed the following items geovanna (where applicable) has been applied. Labs Laboratory Tests Test 04/09/18 05:00 04/09/18 05:50 White Blood Count 8.9 x10^3/uL (4.0-11.0) Red Blood Count 4.73 x10^6/uL (4.30-5.70) Hemoglobin 13.4 g/dL (13.0-17.5) Hematocrit 39.8 % (39.0-53.0) Mean Corpuscular Volume 84 fL (79-100) Mean Corpuscular Hemoglobin 28 pg (25-35) Mean Corpuscular Hemoglobin Concent 34 g/dL (31-37) Red Cell Distribution Width 16.0 % (11.5-14.5) Platelet Count 269 x10^3/uL (140-400) Sodium Level 140 mmol/L (136-145) Potassium Level 3.8 mmol/L (3.5-5.1) Chloride Level 104 mmol/L (98-107) Carbon Dioxide Level 30 mmol/L (21-32) Anion Gap 6 (6-14) Blood Urea Nitrogen 11 mg/dL (8-26) Creatinine 0.9 mg/dL (0.7-1.3) Estimated GFR (Cockcroft-Gault) 95.0 BUN/Creatinine Ratio 12 (6-20) Glucose Level 98 mg/dL (70-99) Calcium Level 8.2 mg/dL (8.5-10.1) Total Bilirubin 0.5 mg/dL (0.2-1.0) Aspartate Amino Transf (AST/SGOT) 12 U/L (15-37) Alanine Aminotransferase (ALT/SGPT) 21 U/L (16-63) Alkaline Phosphatase 77 U/L (46-116) Total Protein 5.8 g/dL (6.4-8.2) Albumin 2.9 g/dL (3.4-5.0) Albumin/Globulin Ratio 1.0 (1.0-1.7) Medications Current Medications Sodium Chloride 1,000 ml @ 1,000 mls/hr 1X ONCE IV Last administered on at 14:11; Start 04/06/18 at 13:15; Stop 04/06/18 at 14:14; Status DC Morphine Sulfate (Morphine Sulfate) 4 mg 1X ONCE IV Last administered on at 14:10; Start 04/06/18 at 13:15; Stop 04/06/18 at 13:21; Status DC Ondansetron HCl (Zofran) 8 mg 1X ONCE IV Last administered on 04/06/18at 14:11 ; Start 04/06/18 at 13:15; Stop 04/06/18 at 13:21; Status DC Iohexol (Omnipaque 240 Mg/ml) 30 ml 1X ONCE PO Last administered on 04/06/18at 13:30; Start 04/06/18 at 13:30; Stop 04/06/18 at 13:31; Status DC Iohexol (Omnipaque 300 Mg/ml) 75 ml 1X ONCE IV Last administered on 04/06/18at 13:30; Start 04/06/18 at 13:30; Stop 04/06/18 at 13:31; Status DC Info (CONTRAST GIVEN -- Rx MONITORING) 1 each PRN DAILY PRN MC SEE COMMENTS; Start 04/06/18 at 13:30; Stop 04/08/18 at 13:29; Status DC Morphine Sulfate (Morphine Sulfate) 4 mg PRN Q2HR PRN IV PAIN; Start 04/06/18 at 15:45; Stop 04/07/18 at 15:44; Status DC Enoxaparin Sodium (Lovenox 40mg Syringe) 40 mg Q24H SQ Last administered on at 19:03; Start 04/06/18 at 19:00; Stop 04/07/18 at 08:33; Status DC Sodium Chloride 1,000 ml @ 125 mls/hr 1X ONCE IV Last administered on at 18:16; Start 04/06/18 at 17:30; Stop 04/07/18 at 01:29; Status DC Pantoprazole Sodium (PROTONIX VIAL for IV PUSH) 40 mg DAILYAC IVP Last administered on 04/09/18at 08:07; Start 04/06/18 at 18:00 Ondansetron HCl (Zofran) 4 mg PRN Q6HRS PRN IV NAUSEA/VOMITING; Start 04/07/18 at 08:45 Ondansetron HCl (Zofran Odt) 4 mg PRN Q6HRS PRN PO NAUSEA/VOMITING; Start 04/07 at 08:45 Pantoprazole Sodium (PROTONIX VIAL for IV PUSH) 40 mg DAILYAC IVP ; Start at 09:30; Status UNV Sodium Chloride 1,000 ml @ 100 mls/hr Q10H IV Last administered on 04/09/18at 23:00; Start 04/07/18 at 11:00 Barium Sulfate (Liquid E-Z Paque) 710 ml 1X ONCE PO ; Start 04/08/18 at 08:30; Stop 04/08/18 at 08:31; Status DC Polyethylene Glycol (miraLAX PACKET) 17 gm 1X ONCE PO Last administered on at 12:45; Start 04/08/18 at 13:00; Stop 04/08/18 at 13:01; Status DC Barium Sulfate (Liquid E-Z Paque) 710 ml 1X ONCE PO Last administered on at 07:50; Start 04/10/18 at 07:15; Stop 04/10/18 at 07:17; Status DC Vitals/I & O Vital Sign - Last 24 Hours 8/19/18 8/19/18 8/19/18 8/19/18 11:00 15:00 19:00 20:00 Temp 97.7 98.1 97.7 98.1 Pulse 54 51 53 Resp 18 20 B/P (MAP) 118/71 (87) 124/73 (90) 112/70 (84) Pulse Ox 97 97 96 O2 Delivery Room Air Room Air Room Air Room Air 04/09/18 04/09/18 04/10/18 23:00 23:00 03:00 Temp 98.2 98.2 98.3 98.2 98.2 98.3 Pulse 52 52 43 Resp 20 B/P (MAP) 106/55 (72) 106/55 (72) 114/61 (78) Pulse Ox 98 98 96 O2 Delivery Room Air Room Air Room Air Intake and Output 04/09/18 04/09/18 04/10/18 15:01 23:01 07:01 Intake Total 700 ml 1360 ml 600 ml Output Total 300 ml 400 ml Balance 400 ml 960 ml 600 ml KAVITHA EVANS MD Apr 10, 2018 10:18
[2018-04-10 11:00] VITALS: BP 137/78
[2018-04-10] MEDS: PANTOPRAZOLE IV PUSH 40 MG VIAL. IVP SCH (11:32)
[2018-04-10] MEDS: IV NORMAL SALINE 1000ML BAG 1,000 ML IV SCH ×2 (11:32→18:42)
--- NOTE | 2018-04-10 12:38 | RAD ---
Small bowel series, 04/10/2018: HISTORY: Crohn's disease with abdominal pain, small bowel obstruction The preliminary abdominal image demonstrates residual contrast within nondilated left colon. There is moderate gaseous distention of a small bowel loop in the left upper quadrant. Surgical sutures are present in the right mid to lower abdomen. Overhead and spot images were obtained following oral ingestion of liquid barium. 3.8 minutes of fluoroscopy time was utilized. 7 fluoroscopic spot images were recorded. The duodenum is unremarkable. There is mild to moderate distention of mid small bowel loops. A discrete transition zone is not identified. The contrast material reached the cecum at 2 hours. By history the terminal ileum has been resected. Fluoroscopic evaluation of the distal ileum demonstrates spasticity and mild mucosal irregularity up to the ileocolic anastomosis. This area does intermittently open up without evidence of high-grade obstruction. Tangential views of the anterior aspect of the midabdomen demonstrate herniation of a small segment of what is probably small bowel. There is no evidence of inflammation of this loop. This small hernia was well demonstrated on the CT study of 04/06/2018, and at that time there was herniation of a short segment of small bowel as well as a knuckle of colon. IMPRESSION: 1. Dilated mid small bowel loops compatible with partial small bowel obstruction. A definite transition point was not identified. 2. Small ventral hernia containing a short segment of small bowel. 3. Abnormal distal ileum extending to the ileocolic anastomosis compatible with the history of Crohn's disease. No high-grade obstruction is currently seen at that level. Electronically signed by: Long Torres MD (04/10/2018 12:33 PM) [facility]
--- NOTE | 2018-04-10 12:44 | PDOC ---
LEELA CARLSON LEGAL ADMINISTRATIVE SECRETARY 04/10/18 1244: SURGICAL PROGRESS NOTE Subjective no pain back from SBFT Vital Signs Vital Signs Date Time Temp Pulse Resp B/P (MAP) Pulse Ox O2 Delivery O2 Flow Rate FiO2 04/10/18 11:00 97.9 49 18 137/78 (97) 98 Room Air 97.9 I&O Intake and Output 04/10/18 07:01 Intake Total 2660 ml Output Total 700 ml Balance 1960 ml Intake Oral 2660 ml Output Urine Total 700 ml # Voids 2 # Bowel Movements 2 General: Alert, Oriented X3, Cooperative, No acute distress Abdomen: Soft, No tenderness Labs Laboratory Tests Test 04/09/18 05:00 04/09/18 05:50 White Blood Count 8.9 x10^3/uL (4.0-11.0) Red Blood Count 4.73 x10^6/uL (4.30-5.70) Hemoglobin 13.4 g/dL (13.0-17.5) Hematocrit 39.8 % (39.0-53.0) Mean Corpuscular Volume 84 fL (79-100) Mean Corpuscular Hemoglobin 28 pg (25-35) Mean Corpuscular Hemoglobin Concent 34 g/dL (31-37) Red Cell Distribution Width 16.0 % (11.5-14.5) Platelet Count 269 x10^3/uL (140-400) Sodium Level 140 mmol/L (136-145) Potassium Level 3.8 mmol/L (3.5-5.1) Chloride Level 104 mmol/L (98-107) Carbon Dioxide Level 30 mmol/L (21-32) Anion Gap 6 (6-14) Blood Urea Nitrogen 11 mg/dL (8-26) Creatinine 0.9 mg/dL (0.7-1.3) Estimated GFR (Cockcroft-Gault) 95.0 BUN/Creatinine Ratio 12 (6-20) Glucose Level 98 mg/dL (70-99) Calcium Level 8.2 mg/dL (8.5-10.1) Total Bilirubin 0.5 mg/dL (0.2-1.0) Aspartate Amino Transf (AST/SGOT) 12 U/L (15-37) Alanine Aminotransferase (ALT/SGPT) 21 U/L (16-63) Alkaline Phosphatase 77 U/L (46-116) Total Protein 5.8 g/dL (6.4-8.2) Albumin 2.9 g/dL (3.4-5.0) Albumin/Globulin Ratio 1.0 (1.0-1.7) Problem List Problems Medical Problems: (1) Small bowel obstruction Status: Acute Assessment/Plan await SBFT results SOPHIE JACKSON MD 04/10/18 1717: SURGICAL PROGRESS NOTE Assessment/Plan pt seen and examined SBFT reviewed d/w Dr Squires (GI) will repair VIH tomorrow explained R/B/A LEELA CARLSON APRN Apr 10, 2018 12:44 SOPHIE JACKSON MD Apr 10, 2018 17:17
--- NOTE | 2018-04-10 14:06 | PDOC ---
Subjective: Subjective: Tolerating full liquids w/o abd pain or n/v. Stooled a little yesterday. Would like more regular food - today [birth year] birthday. Wants to make sure the senior living receives all the records from this admission. Objective: Vital Signs: Vital Signs Date Time Temp Pulse Resp B/P (MAP) Pulse Ox O2 Delivery O2 Flow Rate FiO2 04/10/18 11:00 97.9 49 18 137/78 (97) 98 Room Air 97.9 Imaging: SBS IMPRESSION: 1. Dilated mid small bowel loops compatible with partial small bowel obstruction. A definite transition point was not identified. 2. Small ventral hernia containing a short segment of small bowel. 3. Abnormal distal ileum extending to the ileocolic anastomosis compatible with the history of Crohn's disease. No high-grade obstruction is currently seen at that level. PE: GEN: NAD LUNGS: CTAB HEART: RRR ABD: ventral hernia, soft, non-tender, BS+ NEURO/PSYCH: A & O 3 A/P: Partial SBO Ventral hernia Crohn's disease s/p right resection -- Abd pain and n/v improved. Will review SBS w/ Dr. Squires, await surgical thoughts. DANNA VICTORIA Apr 10, 2018 14:06
[2018-04-10 15:00] VITALS: BP 113/55
[2018-04-10 19:00] VITALS: BP 115/49
[2018-04-10 23:00] VITALS: BP 125/39
[2018-04-11] VITALS (10 sets, daily range): BP systolic 95–128; BP diastolic 35–68
[2018-04-11] MEDS: IV NORMAL SALINE 1000ML BAG 1,000 ML IV SCH ×2 (04:31→17:32)
[2018-04-11] MEDS ORDERED: PROPOFOL 20 ML IV ONE ×2 (08:08→10:38)
[2018-04-11] MEDS ORDERED: LIDOCAINE 2% PF Vial for OR 5 ML VIAL. ONE (08:08)
[2018-04-11] MEDS ORDERED: fentaNYL PF VIAL 250 MCG/5 ML VIAL ONE (08:08)
[2018-04-11] MEDS ORDERED: MIDAZOLAM HCL/PF 2 MG/2 ML VIAL. ONE (08:08)
[2018-04-11] MEDS ORDERED: ONDANSETRON PF 4 MG/2 ML VIAL. ONE (08:08)
[2018-04-11] MEDS ORDERED: BUPIVACAINE-EPI 0.25%-1:200000 50 ML VIAL. ONE (08:15)
[2018-04-11] MEDS ORDERED: ROCURONIUM 50 MG/5 ML VIAL. ONE (09:19)
[2018-04-11] MEDS ORDERED: KETOROLAC 30 MG/ML INJ FOR OR. INJ ONE (10:24)
[2018-04-11] MEDS ORDERED: NEOSTIGMINE METHYLSULFATE 5 MG/5 ML SYRINGE. ONE (11:08)
--- NOTE | 2018-04-11 11:12 | PDOC ---
PROGRESS NOTES Chief Complaint Chief Complaint 1.SBO, Dilated mid small bowel loops compatible with partial small bowel obstruction. 2.Low-security incarceration 3.History of Crohn's, history of partial colon sx in the past 4..History of SBO in the past 5. mod protein-caloric malnutrition History of Present Illness History of Present Illness pain SBFT NOTED Pre-Op Diagnosis incarcerated ventral incisional hernia Post-Op Diagnosis same Procedure Performed primary repair, EVERETTE Surgeon Ramakrishna Vitals Vitals Vital Signs Date Time Temp Pulse Resp B/P (MAP) Pulse Ox O2 Delivery O2 Flow Rate FiO2 04/11/18 09:33 97.4 44 20 121/60 98 Room Air 97.4 Physical Exam General: Alert, Oriented X3, Cooperative, No acute distress, mild distress Heart: Regular rate, Normal S1, Normal S2, No murmurs Lungs: Clear Abdomen: Soft, No tenderness Extremities: No clubbing, No edema Skin: No rashes, No breakdown, No significant lesion Assessment and Plan Assessmemt and Plan Problems Medical Problems: (1) Small bowel obstruction Status: Acute Comment Review of Relevant I have reviewed the following items geovanna (where applicable) has been applied. Medications Current Medications Sodium Chloride 1,000 ml @ 1,000 mls/hr 1X ONCE IV Last administered on 14:11; Start 04/06/18 at 13:15; Stop 04/06/18 at 14:14; Status DC Morphine Sulfate (Morphine Sulfate) 4 mg 1X ONCE IV Last administered on at 14:10; Start 04/06/18 at 13:15; Stop 04/06/18 at 13:21; Status DC Ondansetron HCl (Zofran) 8 mg 1X ONCE IV Last administered on 04/06/18at 14:11 ; Start 04/06/18 at 13:15; Stop 04/06/18 at 13:21; Status DC Iohexol (Omnipaque 240 Mg/ml) 30 ml 1X ONCE PO Last administered on 04/06/18at 13:30; Start 04/06/18 at 13:30; Stop 04/06/18 at 13:31; Status DC Iohexol (Omnipaque 300 Mg/ml) 75 ml 1X ONCE IV Last administered on 04/06/18at 13:30; Start 04/06/18 at 13:30; Stop 04/06/18 at 13:31; Status DC Info (CONTRAST GIVEN -- Rx MONITORING) 1 each PRN DAILY PRN MC SEE COMMENTS; Start 04/06/18 at 13:30; Stop 04/08/18 at 13:29; Status DC Morphine Sulfate (Morphine Sulfate) 4 mg PRN Q2HR PRN IV PAIN; Start 04/06/18 at 15:45; Stop 04/07/18 at 15:44; Status DC Enoxaparin Sodium (Lovenox 40mg Syringe) 40 mg Q24H SQ Last administered on at 19:03; Start 04/06/18 at 19:00; Stop 04/07/18 at 08:33; Status DC Sodium Chloride 1,000 ml @ 125 mls/hr 1X ONCE IV Last administered on at 18:16; Start 04/06/18 at 17:30; Stop 04/07/18 at 01:29; Status DC Pantoprazole Sodium (PROTONIX VIAL for IV PUSH) 40 mg DAILYAC IVP Last administered on 04/10/18at 11:32; Start 04/06/18 at 18:00 Ondansetron HCl (Zofran) 4 mg PRN Q6HRS PRN IV NAUSEA/VOMITING; Start 04/07/18 at 08:45 Ondansetron HCl (Zofran Odt) 4 mg PRN Q6HRS PRN PO NAUSEA/VOMITING; Start 04/07 at 08:45 Pantoprazole Sodium (PROTONIX VIAL for IV PUSH) 40 mg DAILYAC IVP ; Start at 09:30; Status UNV Sodium Chloride 1,000 ml @ 100 mls/hr Q10H IV Last administered on 04/11/18at 04:31; Start 04/07/18 at 11:00 Barium Sulfate (Liquid E-Z Paque) 710 ml 1X ONCE PO ; Start 04/08/18 at 08:30; Stop 04/08/18 at 08:31; Status DC Polyethylene Glycol (miraLAX PACKET) 17 gm 1X ONCE PO Last administered on at 12:45; Start 04/08/18 at 13:00; Stop 04/08/18 at 13:01; Status DC Barium Sulfate (Liquid E-Z Paque) 710 ml 1X ONCE PO Last administered on at 07:50; Start 04/10/18 at 07:15; Stop 04/10/18 at 07:17; Status DC Cefazolin Sodium/ Dextrose 50 ml @ 100 mls/hr 1X PREOP PRN IV protocol; Start 04/11/18 at 06:00; Stop 04/11/18 at 18:00 Propofol 20 ml @ As Directed STK-MED ONCE IV ; Start 04/11/18 at 08:08; Stop at 08:09; Status DC Lidocaine HCl (Lidocaine Pf 2% Vial) 5 ml STK-MED ONCE .ROUTE ; Start 04/11/18 at 08:08; Stop 04/11/18 at 08:09; Status DC Ondansetron HCl (Zofran) 4 mg STK-MED ONCE .ROUTE ; Start 04/11/18 at 08:08; Stop 04/11/18 at 08:09; Status DC Midazolam HCl (Versed) 2 mg STK-MED ONCE .ROUTE ; Start 04/11/18 at 08:08; Stop 04/11/18 at 08:09; Status DC Fentanyl Citrate (Fentanyl 5ml Vial) 250 mcg STK-MED ONCE .ROUTE ; Start at 08:08; Stop 04/11/18 at 08:09; Status DC Bupivacaine HCl/ Epinephrine Bitart (Marcaine-Epi 0.25%-[id number]) 50 ml STK-MED ONCE .ROUTE Last administered on 04/11/18at 10:01; Start 04/11/18 at 08:15; Stop 04/11/18 at 09:15; Status DC Rocuronium Pingree (Zemuron) 50 mg STK-MED ONCE .ROUTE ; Start 04/11/18 at 09:19 ; Stop 04/11/18 at 09:20; Status DC Ketorolac Tromethamine (Toradol For Or Only) 30 mg STK-MED ONCE INJ ; Start at 10:24; Stop 04/11/18 at 10:25; Status DC Propofol 20 ml @ As Directed STK-MED ONCE IV ; Start 04/11/18 at 10:38; Stop at 10:39; Status DC Neostigmine Methylsulfate (Neostigmine Methylsulfate) 5 mg STK-MED ONCE .ROUTE ; Start 04/11/18 at 11:08; Stop 04/11/18 at 11:09; Status DC Vitals/I & O Vital Sign - Last 24 Hours 04/10/18 04/10/18 04/10/18 04/10/18 15:00 19:00 20:00 23:00 Temp 97.9 98.4 98.1 97.9 98.4 98.1 Pulse 44 50 54 Resp 18 18 18 B/P (MAP) 113/55 (74) 115/49 (71) 125/39 (67) Pulse Ox 99 97 97 O2 Delivery Room Air Room Air Room Air Room Air 04/11/18 04/11/18 04/11/18 03:00 07:00 09:33 Temp 98.6 97.9 97.4 98.6 97.9 97.4 Pulse 43 46 44 Resp 17 18 20 B/P (MAP) 103/68 (80) 111/63 (79) 121/60 Pulse Ox 100 98 98 O2 Delivery Room Air Room Air Room Air Intake and Output 04/10/18 04/10/18 04/11/18 15:00 23:00 07:00 Intake Total 300 ml 1100 ml Output Total 600 ml 0 ml Balance 300 ml 500 ml 0 ml KAVITHA EVANS MD Apr 11, 2018 11:12
[2018-04-11] MEDS ORDERED: IV RINGERS,LACTATED 1000ML 1,000 ML IV SCH (11:13)
--- NOTE | 2018-04-11 11:14 | PDOC ---
Objective: Vital Signs: Vital Signs Date Time Temp Pulse Resp B/P (MAP) Pulse Ox O2 Delivery O2 Flow Rate FiO2 04/11/18 09:33 97.4 44 20 121/60 98 Room Air 97.4 PE: Out of room. A/P: Ventral hernia Crohn's disease s/p right resection - narrowing near ileocolostomy on SBFT -- Out of room for hernia repair. Discussed biologic for Crohn's yesterday - pt concerned w/ starting/continuing this while in [facility]. DANNA VICTORIA Apr 11, 2018 11:14
[2018-04-11] MEDS ORDERED: PROCHLORPERAZINE 10 MG/2 ML VIAL. IV PRN (11:15)
[2018-04-11] MEDS ORDERED: fentaNYL PF VIAL 100 MCG/2 ML VIAL IV PRN ×2 (11:15)
[2018-04-11] MEDS ORDERED: ONDANSETRON PF 4 MG/2 ML VIAL. IV PRN ×2 (11:15→12:15)
[2018-04-11] MEDS ORDERED: MORPHINE SULFATE 2 MG/ML VIAL. IV PRN (11:15)
[2018-04-11] MEDS ORDERED: LIDOCAINE 1% PF 2 ML VIAL. ID PRN (11:15)
[2018-04-11] MEDS: HYDROmorphone 2 MG/ML VIAL IV PRN ×2 (11:38→12:14)
--- NOTE | 2018-04-11 12:00 | PDOC ---
BRIEF OPERATIVE NOTE Date: Apr 11, 2018 Pre-Op Diagnosis incarcerated ventral incisional hernia Post-Op Diagnosis same Procedure Performed primary repair, [facility]ERETTE Surgeon Ramakrishna Anesthesia Type: General Blood Loss 25cc IV Fluid 1000cc Specimens Obtained hernia sack Findings incarcerated small bowel, adhesions Complications none SOPHIE JACKSON MD Apr 11, 2018 12:00
[2018-04-11] MEDS ORDERED: 0.9 % SODIUM CHLORIDE 10 ML DISP.SYRIN. IV PRN (12:15)
[2018-04-11 12:22] LABS: BASO % 0 % (0-3); EOS # 0.2 x10^3/uL (0.0-0.7); EOS % 2 % (0-3); HEMATOCRIT 39.2 % (39.0-53.0); HEMOGLOBIN 13.2 g/dL (13.0-17.5); LYMPH # 2.7 x10^3/uL (1.0-4.8); LYMPH % 29 % (24-48); MEAN CORPUSCULAR HEMOGLOBIN 29 pg (25-35); MEAN CORPUSCULAR HGB CONC 34 g/dL (31-37); MEAN CORPUSCULAR VOLUME 85 fL (79-100); MONO # 0.7 x10^3/uL (0.0-1.1); MONO % 7 % (0-9); NEUT # 5.9 x10^3uL (1.8-7.7); NEUT % 62 % (31-73); PLATELET COUNT 281 x10^3/uL (140-400); RED BLOOD COUNT 4.63 x10^6/uL (4.30-5.70); RED CELL DISTRIBUTION WIDTH 15.8 % (11.5-14.5); WHITE BLOOD COUNT 9.4 x10^3/uL (4.0-11.0)
[2018-04-11] MEDS: PANTOPRAZOLE IV PUSH 40 MG VIAL. IVP SCH (12:40)
[2018-04-11] MEDS: ENOXAPARIN 40 MG/0.4 ML SYRINGE. SQ SCH (12:47)
[2018-04-11 12:51] LABS: ALBUMIN 2.8 g/dL (3.4-5.0); CREATININE 0.9 mg/dL (0.7-1.3); GFR 94.4; POTASSIUM 4.4 mmol/L (3.5-5.1); TOTAL BILIRUBIN 0.3 mg/dL (0.2-1.0); TOTAL PROTEIN 5.5 g/dL (6.4-8.2)
--- NOTE | 2018-04-11 13:18 | RAD ---
EXAM: Abdomen, single view. HISTORY: Hernia repair. COMPARISON: None. FINDINGS: A single frontal view of the abdomen is obtained. The pelvis and right lateral abdomen are excluded from the [id number]. There is contrast within the colon. There is no evidence of bowel obstruction. The tip of a suspected nasogastric tube is seen within the distal esophagus or gastroesophageal junction. IMPRESSION: Contrast within the colon due to a recent small bowel follow-through exam. There is a nonobstructive bowel gas pattern. There may be a catheter within the distal esophagus or gastroesophageal junction. The exam is limited due to the [id number]. Electronically signed by: Radha Thompson MD (04/11/2018 1:15 PM) [id number]
--- NOTE | 2018-04-11 14:46 | OP ---
DATE OF SURGERY: 04/11/2018 PREOPERATIVE DIAGNOSIS: Incarcerated ventral incisional hernia. POSTOPERATIVE DIAGNOSIS: Incarcerated ventral incisional hernia. PROCEDURE: Primary repair after lysis of adhesions. SURGEON: Sophie Jackson MD. ANESTHESIA: General endotracheal. ESTIMATED BLOOD LOSS: 25 mL. INTRAVENOUS FLUIDS: 1 liter. INDICATIONS: The patient is a 38-year-old with a longstanding ventral incisional hernia containing a loop of small bowel. He is brought for repair. OPERATIVE FINDINGS: Hernia contained a knuckle of small bowel, which was not reducible, but was viable. There were adhesions of omentum and bowel to the abdominal wall. DESCRIPTION OF PROCEDURE: The patient brought to the operating suite, given a general endotracheal anesthetic and the abdomen prepped and draped in usual sterile fashion. A previous midline incision was infiltrated with local anesthetic, excised and the abdomen carefully entered. Hernia sac was opened and we carefully took down the contents of the incarcerated bowel, taking care to avoid injury. A second hernia superior to the main defect was similarly reduced and once we had adequately mobilized the bowel off the abdominal wall to allow closure of the hernia, this was done. This was a single layer closure of #1 looped PDS tied in the middle after a correct sponge count had been obtained and hemostasis was present. A skin incision then closed with a subcuticular 4-0 Monocryl. Steri-Strips and sterile dressing applied. Postop foreign body film was negative for unexplained foreign body. The patient was awakened from his anesthetic and taken to the recovery room in satisfactory condition. SOPHIE JACKSON MD DR: BENITO/peggy JOB#: [id number] / [id number]
[2018-04-11] MEDS: MORPHINE SULFATE 10 MG/ML VIAL. IV PRN ×2 (15:06→23:13)
[2018-04-12] MEDS: IV NORMAL SALINE 1000ML BAG 1,000 ML IV SCH ×2 (02:15→17:38)
[2018-04-12 03:00] VITALS: BP 106/56
[2018-04-12] MEDS: oxyCODONE/APAP 7.5/325 1 TAB TABLET PO PRN ×4 (05:21→22:03)
[2018-04-12 07:00] VITALS: BP 116/56
[2018-04-12] MEDS: PANTOPRAZOLE IV PUSH 40 MG VIAL. IVP SCH (09:47)
--- NOTE | 2018-04-12 10:39 | PDOC ---
PROGRESS NOTES Chief Complaint Chief Complaint 1.SBO, Dilated mid small bowel loops compatible with partial small bowel obstruction. 2.Low-security incarceration 3.History of Crohn's, history of partial colon sx in the past 4..History of SBO in the past 5. mod protein-caloric malnutrition pod # 1 incarcerated ventral incisional hernia History of Present Illness History of Present Illness pain SBFT NOTED Pre-Op Diagnosis incarcerated ventral incisional hernia Post-Op Diagnosis same Procedure Performed primary repair, EVERETTE Surgeon Ramakrishna Vitals Vitals Vital Signs Date Time Temp Pulse Resp B/P (MAP) Pulse Ox O2 Delivery O2 Flow Rate FiO2 04/12/18 09:46 16 Room Air 04/12/18 07:00 97.9 70 116/56 (76) 96 97.9 04/11/18 23:00 10.0 Physical Exam General: Alert, Oriented X3, Cooperative, No acute distress, mild distress Heart: Regular rate, Normal S1, Normal S2, No murmurs Lungs: Clear Abdomen: Soft, No tenderness, No masses Extremities: No clubbing, No edema Skin: No rashes, No breakdown, No significant lesion Labs LABS Laboratory Tests Test 04/11/18 11:50 White Blood Count 9.4 x10^3/uL (4.0-11.0) Red Blood Count 4.63 x10^6/uL (4.30-5.70) Hemoglobin 13.2 g/dL (13.0-17.5) Hematocrit 39.2 % (39.0-53.0) Mean Corpuscular Volume 85 fL (79-100) Mean Corpuscular Hemoglobin 29 pg (25-35) Mean Corpuscular Hemoglobin Concent 34 g/dL (31-37) Red Cell Distribution Width 15.8 % (11.5-14.5) Platelet Count 281 x10^3/uL (140-400) Neutrophils (%) (Auto) 62 % (31-73) Lymphocytes (%) (Auto) 29 % (24-48) Monocytes (%) (Auto) 7 % (0-9) Eosinophils (%) (Auto) 2 % (0-3) Basophils (%) (Auto) 0 % (0-3) Neutrophils # (Auto) 5.9 x10^3uL (1.8-7.7) Lymphocytes # (Auto) 2.7 x10^3/uL (1.0-4.8) Monocytes # (Auto) 0.7 x10^3/uL (0.0-1.1) Eosinophils # (Auto) 0.2 x10^3/uL (0.0-0.7) Basophils # (Auto) 0.0 x10^3/uL (0.0-0.2) Sodium Level 141 mmol/L (136-145) Potassium Level 4.4 mmol/L (3.5-5.1) Chloride Level 106 mmol/L (98-107) Carbon Dioxide Level 30 mmol/L (21-32) Anion Gap 5 (6-14) Blood Urea Nitrogen 10 mg/dL (8-26) Creatinine 0.9 mg/dL (0.7-1.3) Estimated GFR (Cockcroft-Gault) 94.4 BUN/Creatinine Ratio 11 (6-20) Glucose Level 96 mg/dL (70-99) Calcium Level 8.0 mg/dL (8.5-10.1) Total Bilirubin 0.3 mg/dL (0.2-1.0) Aspartate Amino Transf (AST/SGOT) 11 U/L (15-37) Alanine Aminotransferase (ALT/SGPT) 20 U/L (16-63) Alkaline Phosphatase 87 U/L (46-116) Total Protein 5.5 g/dL (6.4-8.2) Albumin 2.8 g/dL (3.4-5.0) Albumin/Globulin Ratio 1.0 (1.0-1.7) Assessment and Plan Assessmemt and Plan Problems Medical Problems: (1) Small bowel obstruction Status: Acute Comment Review of Relevant I have reviewed the following items geovanna (where applicable) has been applied. Labs Laboratory Tests Test 04/11/18 11:50 White Blood Count 9.4 x10^3/uL (4.0-11.0) Red Blood Count 4.63 x10^6/uL (4.30-5.70) Hemoglobin 13.2 g/dL (13.0-17.5) Hematocrit 39.2 % (39.0-53.0) Mean Corpuscular Volume 85 fL (79-100) Mean Corpuscular Hemoglobin 29 pg (25-35) Mean Corpuscular Hemoglobin Concent 34 g/dL (31-37) Red Cell Distribution Width 15.8 % (11.5-14.5) Platelet Count 281 x10^3/uL (140-400) Neutrophils (%) (Auto) 62 % (31-73) Lymphocytes (%) (Auto) 29 % (24-48) Monocytes (%) (Auto) 7 % (0-9) Eosinophils (%) (Auto) 2 % (0-3) Basophils (%) (Auto) 0 % (0-3) Neutrophils # (Auto) 5.9 x10^3uL (1.8-7.7) Lymphocytes # (Auto) 2.7 x10^3/uL (1.0-4.8) Monocytes # (Auto) 0.7 x10^3/uL (0.0-1.1) Eosinophils # (Auto) 0.2 x10^3/uL (0.0-0.7) Basophils # (Auto) 0.0 x10^3/uL (0.0-0.2) Sodium Level 141 mmol/L (136-145) Potassium Level 4.4 mmol/L (3.5-5.1) Chloride Level 106 mmol/L (98-107) Carbon Dioxide Level 30 mmol/L (21-32) Anion Gap 5 (6-14) Blood Urea Nitrogen 10 mg/dL (8-26) Creatinine 0.9 mg/dL (0.7-1.3) Estimated GFR (Cockcroft-Gault) 94.4 BUN/Creatinine Ratio 11 (6-20) Glucose Level 96 mg/dL (70-99) Calcium Level 8.0 mg/dL (8.5-10.1) Total Bilirubin 0.3 mg/dL (0.2-1.0) Aspartate Amino Transf (AST/SGOT) 11 U/L (15-37) Alanine Aminotransferase (ALT/SGPT) 20 U/L (16-63) Alkaline Phosphatase 87 U/L (46-116) Total Protein 5.5 g/dL (6.4-8.2) Albumin 2.8 g/dL (3.4-5.0) Albumin/Globulin Ratio 1.0 (1.0-1.7) Laboratory Tests Test 04/11/18 11:50 White Blood Count 9.4 x10^3/uL (4.0-11.0) Red Blood Count 4.63 x10^6/uL (4.30-5.70) Hemoglobin 13.2 g/dL (13.0-17.5) Hematocrit 39.2 % (39.0-53.0) Mean Corpuscular Volume 85 fL (79-100) Mean Corpuscular Hemoglobin 29 pg (25-35) Mean Corpuscular Hemoglobin Concent 34 g/dL (31-37) Red Cell Distribution Width 15.8 % (11.5-14.5) Platelet Count 281 x10^3/uL (140-400) Neutrophils (%) (Auto) 62 % (31-73) Lymphocytes (%) (Auto) 29 % (24-48) Monocytes (%) (Auto) 7 % (0-9) Eosinophils (%) (Auto) 2 % (0-3) Basophils (%) (Auto) 0 % (0-3) Neutrophils # (Auto) 5.9 x10^3uL (1.8-7.7) Lymphocytes # (Auto) 2.7 x10^3/uL (1.0-4.8) Monocytes # (Auto) 0.7 x10^3/uL (0.0-1.1) Eosinophils # (Auto) 0.2 x10^3/uL (0.0-0.7) Basophils # (Auto) 0.0 x10^3/uL (0.0-0.2) Sodium Level 141 mmol/L (136-145) Potassium Level 4.4 mmol/L (3.5-5.1) Chloride Level 106 mmol/L (98-107) Carbon Dioxide Level 30 mmol/L (21-32) Anion Gap 5 (6-14) Blood Urea Nitrogen 10 mg/dL (8-26) Creatinine 0.9 mg/dL (0.7-1.3) Estimated GFR (Cockcroft-Gault) 94.4 BUN/Creatinine Ratio 11 (6-20) Glucose Level 96 mg/dL (70-99) Calcium Level 8.0 mg/dL (8.5-10.1) Total Bilirubin 0.3 mg/dL (0.2-1.0) Aspartate Amino Transf (AST/SGOT) 11 U/L (15-37) Alanine Aminotransferase (ALT/SGPT) 20 U/L (16-63) Alkaline Phosphatase 87 U/L (46-116) Total Protein 5.5 g/dL (6.4-8.2) Albumin 2.8 g/dL (3.4-5.0) Albumin/Globulin Ratio 1.0 (1.0-1.7) Medications Current Medications Sodium Chloride 1,000 ml @ 1,000 mls/hr 1X ONCE IV Last administered on at 14:11; Start 04/06/18 at 13:15; Stop 04/06/18 at 14:14; Status DC Morphine Sulfate (Morphine Sulfate) 4 mg 1X ONCE IV Last administered on at 14:10; Start 04/06/18 at 13:15; Stop 04/06/18 at 13:21; Status DC Ondansetron HCl (Zofran) 8 mg 1X ONCE IV Last administered on 04/06/18at 14:11 ; Start 04/06/18 at 13:15; Stop 04/06/18 at 13:21; Status DC Iohexol (Omnipaque 240 Mg/ml) 30 ml 1X ONCE PO Last administered on 04/06/18at 13:30; Start 04/06/18 at 13:30; Stop 04/06/18 at 13:31; Status DC Iohexol (Omnipaque 300 Mg/ml) 75 ml 1X ONCE IV Last administered on 04/06/18at 13:30; Start 04/06/18 at 13:30; Stop 04/06/18 at 13:31; Status DC Info (CONTRAST GIVEN -- Rx MONITORING) 1 each PRN DAILY PRN MC SEE COMMENTS; Start 04/06/18 at 13:30; Stop 04/08/18 at 13:29; Status DC Morphine Sulfate (Morphine Sulfate) 4 mg PRN Q2HR PRN IV PAIN; Start 04/06/18 at 15:45; Stop 04/07/18 at 15:44; Status DC Enoxaparin Sodium (Lovenox 40mg Syringe) 40 mg Q24H SQ Last administered on at 19:03; Start 04/06/18 at 19:00; Stop 04/07/18 at 08:33; Status DC Sodium Chloride 1,000 ml @ 125 mls/hr 1X ONCE IV Last administered on at 18:16; Start 04/06/18 at 17:30; Stop 04/07/18 at 01:29; Status DC Pantoprazole Sodium (PROTONIX VIAL for IV PUSH) 40 mg DAILYAC IVP Last administered on 04/12/18at 09:47; Start 04/06/18 at 18:00 Ondansetron HCl (Zofran) 4 mg PRN Q6HRS PRN IV NAUSEA/VOMITING; Start 04/07/18 at 08:45; Status Cancel Ondansetron HCl (Zofran Odt) 4 mg PRN Q6HRS PRN PO NAUSEA/VOMITING; Start 04/07 at 08:45 Pantoprazole Sodium (PROTONIX VIAL for IV PUSH) 40 mg DAILYAC IVP ; Start at 09:30; Status UNV Sodium Chloride 1,000 ml @ 100 mls/hr Q10H IV Last administered on 04/12/18at 02:15; Start 04/07/18 at 11:00 Barium Sulfate (Liquid E-Z Paque) 710 ml 1X ONCE PO ; Start 04/08/18 at 08:30; Stop 04/08/18 at 08:31; Status DC Polyethylene Glycol (miraLAX PACKET) 17 gm 1X ONCE PO Last administered on at 12:45; Start 04/08/18 at 13:00; Stop 04/08/18 at 13:01; Status DC Barium Sulfate (Liquid E-Z Paque) 710 ml 1X ONCE PO Last administered on at 07:50; Start 04/10/18 at 07:15; Stop 04/10/18 at 07:17; Status DC Cefazolin Sodium/ Dextrose 50 ml @ 100 mls/hr 1X PREOP PRN IV protocol Last administered on 04/11/18at 09:45; Start 04/11/18 at 06:00; Stop 04/11/18 at 17:03 ; Status DC Propofol 20 ml @ As Directed STK-MED ONCE IV ; Start 04/11/18 at 08:08; Stop at 08:09; Status DC Lidocaine HCl (Lidocaine Pf 2% Vial) 5 ml STK-MED ONCE .ROUTE ; Start 04/11/18 at 08:08; Stop 04/11/18 at 08:09; Status DC Ondansetron HCl (Zofran) 4 mg STK-MED ONCE .ROUTE ; Start 04/11/18 at 08:08; Stop 04/11/18 at 08:09; Status DC Midazolam HCl (Versed) 2 mg STK-MED ONCE .ROUTE ; Start 04/11/18 at 08:08; Stop 04/11/18 at 08:09; Status DC Fentanyl Citrate (Fentanyl 5ml Vial) 250 mcg STK-MED ONCE .ROUTE ; Start at 08:08; Stop 04/11/18 at 08:09; Status DC Bupivacaine HCl/ Epinephrine Bitart (Marcaine-Epi 0.25%-[id number]) 50 ml STK-MED ONCE .ROUTE Last administered on 04/11/18at 10:01; Start 04/11/18 at 08:15; Stop 04/11/18 at 09:15; Status DC Rocuronium [place] (Zemuron) 50 mg STK-MED ONCE .ROUTE ; Start 04/11/18 at 09:19 ; Stop 04/11/18 at 09:20; Status DC Ketorolac Tromethamine (Toradol For Or Only) 30 mg STK-MED ONCE INJ ; Start at 10:24; Stop 04/11/18 at 10:25; Status DC Propofol 20 ml @ As Directed STK-MED ONCE IV ; Start 04/11/18 at 10:38; Stop at 10:39; Status DC Neostigmine Methylsulfate (Neostigmine Methylsulfate) 5 mg STK-MED ONCE .ROUTE ; Start 04/11/18 at 11:08; Stop 04/11/18 at 11:09; Status DC Ondansetron HCl (Zofran) 4 mg PRN Q6HRS PRN IV NAUSEA/VOMITING; Start 04/11/18 at 11:15; Stop 04/11/18 at 17:04; Status DC Fentanyl Citrate (Fentanyl 2ml Vial) 25 mcg PRN Q5MIN PRN IV MILD PAIN; Start 04/11/18 at 11:15; Stop 04/11/18 at 17:03; Status DC Fentanyl Citrate (Fentanyl 2ml Vial) 50 mcg PRN Q5MIN PRN IV MODERATE TO SEVERE PAIN; Start 04/11/18 at 11:15; Stop 04/11/18 at 17:03; Status DC Morphine Sulfate (Morphine Sulfate) 1 mg PRN Q10MIN PRN IV SEVERE PAIN; Start 04/11/18 at 11:15; Stop 04/11/18 at 17:04; Status DC Ringer's Solution 1,000 ml @ 30 mls/hr Q24H IV Last administered on 04/11/18at 12:43; Start 04/11/18 at 11:13; Stop 04/11/18 at 23:12; Status DC Lidocaine HCl (Xylocaine-Mpf 1% 2ml Vial) 2 ml 1X PRN PRN ID IV START; Start at 11:15; Stop 04/11/18 at 17:04; Status DC Hydromorphone HCl (Dilaudid) 0.5 mg PRN Q10MIN PRN IV SEV PAIN, Second choice Last administered on 04/11/18at 12:14; Start 04/11/18 at 11:15; Stop 04/11/18 at 17:03; Status DC Prochlorperazine Edisylate (Compazine) 5 mg PACU PRN PRN IV NAUSEA, MRX1; Start 04/11/18 at 11:15; Stop 04/11/18 at 17:05; Status DC Enoxaparin Sodium (Lovenox 40mg Syringe) 40 mg Q24H SQ Last administered on at 12:47; Start 04/11/18 at 12:15 Sodium Chloride (Normal Saline Flush) 3 ml QSHIFT PRN IV AFTER MEDS AND BLOOD DRAWS; Start 04/11/18 at 12:15 Ondansetron HCl (Zofran) 4 mg PRN Q6HRS PRN IV NAUESA, 1ST CHOICE Last administered on 04/12/18at 09:52; Start 04/11/18 at 12:15 Morphine Sulfate (Morphine Sulfate) 5 mg PRN Q3HRS PRN IV MODERATE TO SEVERE PAIN Last administered on 04/11/18at 23:13; Start 04/11/18 at 12:15 Oxycodone/ Acetaminophen (Percocet 7.5/ 325) 1 tab PRN Q4HRS PRN PO MILD TO MODERATE PAIN Last administered on 04/12/18at 09:46; Start 04/11/18 at 12:15 Vitals/I & O Vital Sign - Last 24 Hours 8/04/11/18 04/11/18 04/11/18 11:20 11:20 11:35 11:38 Temp 98.7 98.7 Pulse 43 38 Resp 12 18 18 B/P (MAP) 147/55 147/43 Pulse Ox 99 100 100 O2 Delivery Simple Mask Mask Simple Mask Simple Mask O2 Flow Rate 10 10 10 10.0 04/11/18 04/11/18 04/11/18 04/11/18 11:50 12:05 12:14 12:30 Temp 98.8 98.8 Pulse 38 44 45 Resp 18 16 16 18 B/P (MAP) 124/39 116/39 108/48 (68) Pulse Ox 93 93 94 93 O2 Delivery Room Air Room Air Room Air Room Air 04/11/18 04/11/18 04/11/18 04/11/18 12:45 13:00 13:15 13:45 Pulse 48 61 58 58 Resp 18 18 18 18 B/P (MAP) 116/53 (74) 128/65 (86) 112/54 (73) 114/48 (70) Pulse Ox 95 95 94 94 O2 Delivery Room Air Room Air Nasal Cannula Room Air 04/11/18 04/11/18 04/11/18 04/11/18 15:00 15:06 19:00 20:00 Temp 97.9 97.9 Pulse 58 52 Resp 18 16 B/P (MAP) 115/54 (74) 103/56 (72) Pulse Ox 95 95 O2 Delivery Room Air Room Air Room Air Room Air 04/11/18 04/11/18 04/12/18 04/12/18 23:00 23:13 00:10 03:00 Temp 98.2 98.3 98.2 98.3 Pulse 82 66 Resp 18 18 B/P (MAP) 108/56 (73) 106/56 (73) Pulse Ox 95 95 O2 Delivery Room Air Room Air Room Air Room Air O2 Flow Rate 10.0 04/12/18 04/12/18 04/12/18 04/12/18 05:21 06:39 07:00 09:46 Temp 97.9 97.9 Pulse 70 Resp 16 16 B/P (MAP) 116/56 (76) Pulse Ox 96 O2 Delivery Room Air Room Air Room Air Room Air Intake and Output 04/11/18 04/11/18 04/12/18 15:00 23:00 07:00 Intake Total 2150 ml 1100 ml Output Total 25 ml 1100 ml Balance 2125 ml 1100 ml -1100 ml KAVITHA EVANS MD Apr 12, 2018 10:39
[2018-04-12 11:00] VITALS: BP 118/69
[2018-04-12 11:16] LABS: BASO % 0 % (0-3); EOS # 0.1 x10^3/uL (0.0-0.7); EOS % 1 % (0-3); HEMOGLOBIN 13.6 g/dL (13.0-17.5); LYMPH # 2.1 x10^3/uL (1.0-4.8); LYMPH % 21 % (24-48); MEAN CORPUSCULAR HEMOGLOBIN 28 pg (25-35); MEAN CORPUSCULAR HGB CONC 33 g/dL (31-37); MEAN CORPUSCULAR VOLUME 85 fL (79-100); MONO # 0.7 x10^3/uL (0.0-1.1); MONO % 7 % (0-9); NEUT # 7.3 x10^3uL (1.8-7.7); NEUT % 71 % (31-73); PLATELET COUNT 284 x10^3/uL (140-400); RED BLOOD COUNT 4.85 x10^6/uL (4.30-5.70); RED CELL DISTRIBUTION WIDTH 16.2 % (11.5-14.5); WHITE BLOOD COUNT 10.3 x10^3/uL (4.0-11.0)
[2018-04-12 11:33] LABS: ALBUMIN 2.8 g/dL (3.4-5.0); ALBUMIN/GLOBULIN RATIO 0.9 (1.0-1.7); CALCIUM 8.3 mg/dL (8.5-10.1); GFR 83.6; POTASSIUM 4.1 mmol/L (3.5-5.1); TOTAL BILIRUBIN 0.5 mg/dL (0.2-1.0); TOTAL PROTEIN 5.9 g/dL (6.4-8.2)
--- NOTE | 2018-04-12 12:05 | PDOC ---
Subjective: Subjective: Pain better, no flatus, plans to advance diet. Objective: Vital Signs: Vital Signs Date Time Temp Pulse Resp B/P (MAP) Pulse Ox O2 Delivery O2 Flow Rate FiO2 04/12/18 11:00 98.2 60 16 118/69 (85) 96 Room Air 98.2 04/11/18 23:00 10.0 Labs: Laboratory Tests Test 04/12/18 11:00 White Blood Count 10.3 x10^3/uL Red Blood Count 4.85 x10^6/uL Hemoglobin 13.6 g/dL Hematocrit 41.0 % Mean Corpuscular Volume 85 fL Mean Corpuscular Hemoglobin 28 pg Mean Corpuscular Hemoglobin Concent 33 g/dL Red Cell Distribution Width 16.2 % Platelet Count 284 x10^3/uL Neutrophils (%) (Auto) 71 % Lymphocytes (%) (Auto) 21 % Monocytes (%) (Auto) 7 % Eosinophils (%) (Auto) 1 % Basophils (%) (Auto) 0 % Neutrophils # (Auto) 7.3 x10^3uL Lymphocytes # (Auto) 2.1 x10^3/uL Monocytes # (Auto) 0.7 x10^3/uL Eosinophils # (Auto) 0.1 x10^3/uL Basophils # (Auto) 0.0 x10^3/uL Sodium Level 140 mmol/L Potassium Level 4.1 mmol/L Chloride Level 105 mmol/L Carbon Dioxide Level 35 mmol/L Anion Gap 0 Blood Urea Nitrogen 9 mg/dL Creatinine 1.0 mg/dL Estimated GFR (Cockcroft-Gault) 83.6 BUN/Creatinine Ratio 9 Glucose Level 126 mg/dL Calcium Level 8.3 mg/dL Total Bilirubin 0.5 mg/dL Aspartate Amino Transf (AST/SGOT) 9 U/L Alanine Aminotransferase (ALT/SGPT) 20 U/L Alkaline Phosphatase 85 U/L Total Protein 5.9 g/dL Albumin 2.8 g/dL Albumin/Globulin Ratio 0.9 PE: GEN: NAD LUNGS: CTAB HEART: RRR ABD: abd binder NEURO/PSYCH: A & O 3 A/P: Incarcerated ventral incisional hernia s/p repair and EVERETTE Crohn's disease -- Continue per surgery. As outpatient, needs biologic (Humira available at [email or web address]?) and screening colonoscopy. DANNA VICTORIA Apr 12, 2018 12:05
[2018-04-12 15:00] VITALS: BP 112/56
[2018-04-12] MEDS: DOCUSATE SODIUM 100 MG CAPSULE. PO SCH (15:03)
[2018-04-12] MEDS: ENOXAPARIN 40 MG/0.4 ML SYRINGE. SQ SCH (15:04)
--- NOTE | 2018-04-12 15:36 | PDOC ---
Provider Note Provider Note SURG POD 1 wants real food adequate pain control passing some gas soft GI diet SOPHIE JACKSON MD Apr 12, 2018 15:36
[2018-04-12 19:00] VITALS: BP 111/55
[2018-04-12 23:00] VITALS: BP 114/60
[2018-04-13 02:46] VITALS: BP 119/64
[2018-04-13 04:24] LABS: BASO % 0 % (0-3); EOS # 0.2 x10^3/uL (0.0-0.7); EOS % 2 % (0-3); HEMATOCRIT 37.5 % (39.0-53.0); HEMOGLOBIN 12.6 g/dL (13.0-17.5); LYMPH # 2.2 x10^3/uL (1.0-4.8); LYMPH % 24 % (24-48); MEAN CORPUSCULAR HEMOGLOBIN 28 pg (25-35); MEAN CORPUSCULAR HGB CONC 34 g/dL (31-37); MEAN CORPUSCULAR VOLUME 84 fL (79-100); MONO # 0.6 x10^3/uL (0.0-1.1); MONO % 7 % (0-9); NEUT # 6.2 x10^3uL (1.8-7.7); NEUT % 67 % (31-73); PLATELET COUNT 253 x10^3/uL (140-400); RED BLOOD COUNT 4.44 x10^6/uL (4.30-5.70); WHITE BLOOD COUNT 9.3 x10^3/uL (4.0-11.0)
[2018-04-13 05:00] LABS: ALBUMIN 2.6 g/dL (3.4-5.0); ALBUMIN/GLOBULIN RATIO 0.9 (1.0-1.7); CALCIUM 8.1 mg/dL (8.5-10.1); CREATININE 0.9 mg/dL (0.7-1.3); GFR 94.4; POTASSIUM 4.1 mmol/L (3.5-5.1); TOTAL BILIRUBIN 0.4 mg/dL (0.2-1.0); TOTAL PROTEIN 5.5 g/dL (6.4-8.2)
[2018-04-13] MEDS: oxyCODONE/APAP 7.5/325 1 TAB TABLET PO PRN ×2 (06:27→11:01)
[2018-04-13 07:00] VITALS: BP 122/62
[2018-04-13] MEDS: IV NORMAL SALINE 1000ML BAG 1,000 ML IV SCH (07:01)
[2018-04-13] MEDS: DOCUSATE SODIUM 100 MG CAPSULE. PO SCH (08:46)
--- NOTE | 2018-04-13 09:14 | PDOC ---
Subjective: Subjective: Some abd pain earlier while on the toilet - "lots" of gas, no stool - pain better now, thinks can go without pain meds. Tolerating PO. Objective: Objective: Getting Colace. Vital Signs: Vital Signs Date Time Temp Pulse Resp B/P (MAP) Pulse Ox O2 Delivery O2 Flow Rate FiO2 04/13/18 07:27 18 Room Air 04/13/18 07:00 98.0 59 122/62 (82) 95 98.0 04/13/18 06:27 10.0 Labs: Laboratory Tests Test 04/12/18 11:00 04/13/18 03:25 White Blood Count 10.3 x10^3/uL 9.3 x10^3/uL Red Blood Count 4.85 x10^6/uL 4.44 x10^6/uL Hemoglobin 13.6 g/dL 12.6 g/dL Hematocrit 41.0 % 37.5 % Mean Corpuscular Volume 85 fL 84 fL Mean Corpuscular Hemoglobin 28 pg 28 pg Mean Corpuscular Hemoglobin Concent 33 g/dL 34 g/dL Red Cell Distribution Width 16.2 % 16.0 % Platelet Count 284 x10^3/uL 253 x10^3/uL Neutrophils (%) (Auto) 71 % 67 % Lymphocytes (%) (Auto) 21 % 24 % Monocytes (%) (Auto) 7 % 7 % Eosinophils (%) (Auto) 1 % 2 % Basophils (%) (Auto) 0 % 0 % Neutrophils # (Auto) 7.3 x10^3uL 6.2 x10^3uL Lymphocytes # (Auto) 2.1 x10^3/uL 2.2 x10^3/uL Monocytes # (Auto) 0.7 x10^3/uL 0.6 x10^3/uL Eosinophils # (Auto) 0.1 x10^3/uL 0.2 x10^3/uL Basophils # (Auto) 0.0 x10^3/uL 0.0 x10^3/uL Sodium Level 140 mmol/L 139 mmol/L Potassium Level 4.1 mmol/L 4.1 mmol/L Chloride Level 105 mmol/L 104 mmol/L Carbon Dioxide Level 35 mmol/L 31 mmol/L Anion Gap 0 4 Blood Urea Nitrogen 9 mg/dL 9 mg/dL Creatinine 1.0 mg/dL 0.9 mg/dL Estimated GFR (Cockcroft-Gault) 83.6 94.4 BUN/Creatinine Ratio 9 10 Glucose Level 126 mg/dL 92 mg/dL Calcium Level 8.3 mg/dL 8.1 mg/dL Total Bilirubin 0.5 mg/dL 0.4 mg/dL Aspartate Amino Transf (AST/SGOT) 9 U/L 10 U/L Alanine Aminotransferase (ALT/SGPT) 20 U/L 19 U/L Alkaline Phosphatase 85 U/L 81 U/L Total Protein 5.9 g/dL 5.5 g/dL Albumin 2.8 g/dL 2.6 g/dL Albumin/Globulin Ratio 0.9 0.9 PE: GEN: NAD LUNGS: CTAB HEART: RRR ABD: abd binder NEURO/PSYCH: A & O 3 OTHER: breakfast tray empty A/P: S/p hernia repair Crohn's disease -- As outpt, recommend biologic for Crohn's and colonoscopy for surveillance. DANNA VICTORIA Apr 13, 2018 09:14
[2018-04-13 11:00] VITALS: BP 111/59
--- NOTE | 2018-04-13 11:08 | PDOC ---
PROGRESS NOTES Chief Complaint Chief Complaint 1.SBO, Dilated mid small bowel loops compatible with partial small bowel obstruction. on ct 2.Low-security incarceration 3.History of Crohn's, history of partial colon sx in the past 4..History of SBO in the past 5. mod protein-caloric malnutrition pod # 2 incarcerated ventral incisional hernia home today, see surgery next week History of Present Illness History of Present Illness pain SBFT NOTED Pre-Op Diagnosis incarcerated ventral incisional hernia Post-Op Diagnosis same Procedure Performed primary repair, [facility] Surgeon Ramakrishna Vitals Vitals Vital Signs Date Time Temp Pulse Resp B/P (MAP) Pulse Ox O2 Delivery O2 Flow Rate FiO2 04/13/18 11:01 18 95 Room Air 04/13/18 07:00 98.0 59 122/62 (82) 98.0 04/13/18 06:27 10.0 Physical Exam General: Alert, Oriented X3, Cooperative, No acute distress, mild distress Heart: Regular rate, Normal S1, Normal S2, No murmurs Lungs: Clear Abdomen: Soft, No tenderness, No hepatosplenomegaly, No masses Extremities: No clubbing, No cyanosis, No edema Skin: No rashes, No breakdown, No significant lesion Labs LABS Laboratory Tests Test 04/13/18 03:25 White Blood Count 9.3 x10^3/uL (4.0-11.0) Red Blood Count 4.44 x10^6/uL (4.30-5.70) Hemoglobin 12.6 g/dL (13.0-17.5) Hematocrit 37.5 % (39.0-53.0) Mean Corpuscular Volume 84 fL (79-100) Mean Corpuscular Hemoglobin 28 pg (25-35) Mean Corpuscular Hemoglobin Concent 34 g/dL (31-37) Red Cell Distribution Width 16.0 % (11.5-14.5) Platelet Count 253 x10^3/uL (140-400) Neutrophils (%) (Auto) 67 % (31-73) Lymphocytes (%) (Auto) 24 % (24-48) Monocytes (%) (Auto) 7 % (0-9) Eosinophils (%) (Auto) 2 % (0-3) Basophils (%) (Auto) 0 % (0-3) Neutrophils # (Auto) 6.2 x10^3uL (1.8-7.7) Lymphocytes # (Auto) 2.2 x10^3/uL (1.0-4.8) Monocytes # (Auto) 0.6 x10^3/uL (0.0-1.1) Eosinophils # (Auto) 0.2 x10^3/uL (0.0-0.7) Basophils # (Auto) 0.0 x10^3/uL (0.0-0.2) Sodium Level 139 mmol/L (136-145) Potassium Level 4.1 mmol/L (3.5-5.1) Chloride Level 104 mmol/L (98-107) Carbon Dioxide Level 31 mmol/L (21-32) Anion Gap 4 (6-14) Blood Urea Nitrogen 9 mg/dL (8-26) Creatinine 0.9 mg/dL (0.7-1.3) Estimated GFR (Cockcroft-Gault) 94.4 BUN/Creatinine Ratio 10 (6-20) Glucose Level 92 mg/dL (70-99) Calcium Level 8.1 mg/dL (8.5-10.1) Total Bilirubin 0.4 mg/dL (0.2-1.0) Aspartate Amino Transf (AST/SGOT) 10 U/L (15-37) Alanine Aminotransferase (ALT/SGPT) 19 U/L (16-63) Alkaline Phosphatase 81 U/L (46-116) Total Protein 5.5 g/dL (6.4-8.2) Albumin 2.6 g/dL (3.4-5.0) Albumin/Globulin Ratio 0.9 (1.0-1.7) Assessment and Plan Assessmemt and Plan Problems Medical Problems: (1) Small bowel obstruction Status: Acute Comment Review of Relevant I have reviewed the following items geovanna (where applicable) has been applied. Labs Laboratory Tests Test 04/11/18 11:50 04/12/18 11:00 04/13/18 03:25 White Blood Count 9.4 x10^3/uL (4.0-11.0) 10.3 x10^3/uL (4.0-11.0) 9.3 x10^3/uL (4.0-11.0) Red Blood Count 4.63 x10^6/uL (4.30-5.70) 4.85 x10^6/uL (4.30-5.70) 4.44 x10^6/uL (4.30-5.70) Hemoglobin 13.2 g/dL (13.0-17.5) 13.6 g/dL (13.0-17.5) 12.6 g/dL (13.0-17.5) Hematocrit 39.2 % (39.0-53.0) 41.0 % (39.0-53.0) 37.5 % (39.0-53.0) Mean Corpuscular Volume 85 fL (79-100) 85 fL (79-100) 84 fL (79-100) Mean Corpuscular Hemoglobin 29 pg (25-35) 28 pg (25-35) 28 pg (25-35) Mean Corpuscular Hemoglobin Concent 34 g/dL (31-37) 33 g/dL (31-37) 34 g/dL (31-37) Red Cell Distribution Width 15.8 % (11.5-14.5) 16.2 % (11.5-14.5) 16.0 % (11.5-14.5) Platelet Count 281 x10^3/uL (140-400) 284 x10^3/uL (140-400) 253 x10^3/uL (140-400) Neutrophils (%) (Auto) 62 % (31-73) 71 % (31-73) 67 % (31-73) Lymphocytes (%) (Auto) 29 % (24-48) 21 % (24-48) 24 % (24-48) Monocytes (%) (Auto) 7 % (0-9) 7 % (0-9) 7 % (0-9) Eosinophils (%) (Auto) 2 % (0-3) 1 % (0-3) 2 % (0-3) Basophils (%) (Auto) 0 % (0-3) 0 % (0-3) 0 % (0-3) Neutrophils # (Auto) 5.9 x10^3uL (1.8-7.7) 7.3 x10^3uL (1.8-7.7) 6.2 x10^3uL (1.8-7.7) Lymphocytes # (Auto) 2.7 x10^3/uL (1.0-4.8) 2.1 x10^3/uL (1.0-4.8) 2.2 x10^3/uL (1.0-4.8) Monocytes # (Auto) 0.7 x10^3/uL (0.0-1.1) 0.7 x10^3/uL (0.0-1.1) 0.6 x10^3/uL (0.0-1.1) Eosinophils # (Auto) 0.2 x10^3/uL (0.0-0.7) 0.1 x10^3/uL (0.0-0.7) 0.2 x10^3/uL (0.0-0.7) Basophils # (Auto) 0.0 x10^3/uL (0.0-0.2) 0.0 x10^3/uL (0.0-0.2) 0.0 x10^3/uL (0.0-0.2) Sodium Level 141 mmol/L (136-145) 140 mmol/L (136-145) 139 mmol/L (136-145) Potassium Level 4.4 mmol/L (3.5-5.1) 4.1 mmol/L (3.5-5.1) 4.1 mmol/L (3.5-5.1) Chloride Level 106 mmol/L (98-107) 105 mmol/L (98-107) 104 mmol/L (98-107) Carbon Dioxide Level 30 mmol/L (21-32) 35 mmol/L (21-32) 31 mmol/L (21-32) Anion Gap 5 (6-14) 0 (6-14) 4 (6-14) Blood Urea Nitrogen 10 mg/dL (8-26) 9 mg/dL (8-26) 9 mg/dL (8-26) Creatinine 0.9 mg/dL (0.7-1.3) 1.0 mg/dL (0.7-1.3) 0.9 mg/dL (0.7-1.3) Estimated GFR (Cockcroft-Gault) 94.4 83.6 94.4 BUN/Creatinine Ratio 11 (6-20) 9 (6-20) 10 (6-20) Glucose Level 96 mg/dL (70-99) 126 mg/dL (70-99) 92 mg/dL (70-99) Calcium Level 8.0 mg/dL (8.5-10.1) 8.3 mg/dL (8.5-10.1) 8.1 mg/dL (8.5-10.1) Total Bilirubin 0.3 mg/dL (0.2-1.0) 0.5 mg/dL (0.2-1.0) 0.4 mg/dL (0.2-1.0) Aspartate Amino Transf (AST/SGOT) 11 U/L (15-37) 9 U/L (15-37) 10 U/L (15-37) Alanine Aminotransferase (ALT/SGPT) 20 U/L (16-63) 20 U/L (16-63) 19 U/L (16-63) Alkaline Phosphatase 87 U/L (46-116) 85 U/L (46-116) 81 U/L (46-116) Total Protein 5.5 g/dL (6.4-8.2) 5.9 g/dL (6.4-8.2) 5.5 g/dL (6.4-8.2) Albumin 2.8 g/dL (3.4-5.0) 2.8 g/dL (3.4-5.0) 2.6 g/dL (3.4-5.0) Albumin/Globulin Ratio 1.0 (1.0-1.7) 0.9 (1.0-1.7) 0.9 (1.0-1.7) Laboratory Tests Test 04/13/18 03:25 White Blood Count 9.3 x10^3/uL (4.0-11.0) Red Blood Count 4.44 x10^6/uL (4.30-5.70) Hemoglobin 12.6 g/dL (13.0-17.5) Hematocrit 37.5 % (39.0-53.0) Mean Corpuscular Volume 84 fL (79-100) Mean Corpuscular Hemoglobin 28 pg (25-35) Mean Corpuscular Hemoglobin Concent 34 g/dL (31-37) Red Cell Distribution Width 16.0 % (11.5-14.5) Platelet Count 253 x10^3/uL (140-400) Neutrophils (%) (Auto) 67 % (31-73) Lymphocytes (%) (Auto) 24 % (24-48) Monocytes (%) (Auto) 7 % (0-9) Eosinophils (%) (Auto) 2 % (0-3) Basophils (%) (Auto) 0 % (0-3) Neutrophils # (Auto) 6.2 x10^3uL (1.8-7.7) Lymphocytes # (Auto) 2.2 x10^3/uL (1.0-4.8) Monocytes # (Auto) 0.6 x10^3/uL (0.0-1.1) Eosinophils # (Auto) 0.2 x10^3/uL (0.0-0.7) Basophils # (Auto) 0.0 x10^3/uL (0.0-0.2) Sodium Level 139 mmol/L (136-145) Potassium Level 4.1 mmol/L (3.5-5.1) Chloride Level 104 mmol/L (98-107) Carbon Dioxide Level 31 mmol/L (21-32) Anion Gap 4 (6-14) Blood Urea Nitrogen 9 mg/dL (8-26) Creatinine 0.9 mg/dL (0.7-1.3) Estimated GFR (Cockcroft-Gault) 94.4 BUN/Creatinine Ratio 10 (6-20) Glucose Level 92 mg/dL (70-99) Calcium Level 8.1 mg/dL (8.5-10.1) Total Bilirubin 0.4 mg/dL (0.2-1.0) Aspartate Amino Transf (AST/SGOT) 10 U/L (15-37) Alanine Aminotransferase (ALT/SGPT) 19 U/L (16-63) Alkaline Phosphatase 81 U/L (46-116) Total Protein 5.5 g/dL (6.4-8.2) Albumin 2.6 g/dL (3.4-5.0) Albumin/Globulin Ratio 0.9 (1.0-1.7) Medications Current Medications Sodium Chloride 1,000 ml @ 1,000 mls/hr 1X ONCE IV Last administered on at 14:11; Start 04/06/18 at 13:15; Stop 04/06/18 at 14:14; Status DC Morphine Sulfate (Morphine Sulfate) 4 mg 1X ONCE IV Last administered on at 14:10; Start 04/06/18 at 13:15; Stop 04/06/18 at 13:21; Status DC Ondansetron HCl (Zofran) 8 mg 1X ONCE IV Last administered on 04/06/18at 14:11 ; Start 04/06/18 at 13:15; Stop 04/06/18 at 13:21; Status DC Iohexol (Omnipaque 240 Mg/ml) 30 ml 1X ONCE PO Last administered on 04/06/18at 13:30; Start 04/06/18 at 13:30; Stop 04/06/18 at 13:31; Status DC Iohexol (Omnipaque 300 Mg/ml) 75 ml 1X ONCE IV Last administered on 04/06/18at 13:30; Start 04/06/18 at 13:30; Stop 04/06/18 at 13:31; Status DC Info (CONTRAST GIVEN -- Rx MONITORING) 1 each PRN DAILY PRN MC SEE COMMENTS; Start 04/06/18 at 13:30; Stop 04/08/18 at 13:29; Status DC Morphine Sulfate (Morphine Sulfate) 4 mg PRN Q2HR PRN IV PAIN; Start 04/06/18 at 15:45; Stop 04/07/18 at 15:44; Status DC Enoxaparin Sodium (Lovenox 40mg Syringe) 40 mg Q24H SQ Last administered on at 19:03; Start 04/06/18 at 19:00; Stop 04/07/18 at 08:33; Status DC Sodium Chloride 1,000 ml @ 125 mls/hr 1X ONCE IV Last administered on at 18:16; Start 04/06/18 at 17:30; Stop 04/07/18 at 01:29; Status DC Pantoprazole Sodium (PROTONIX VIAL for IV PUSH) 40 mg DAILYAC IVP Last administered on 04/12/18at 09:47; Start 04/06/18 at 18:00; Stop 04/12/18 at 12:05 ; Status DC Ondansetron HCl (Zofran) 4 mg PRN Q6HRS PRN IV NAUSEA/VOMITING; Start 04/07/18 at 08:45; Status Cancel Ondansetron HCl (Zofran Odt) 4 mg PRN Q6HRS PRN PO NAUSEA/VOMITING; Start 04/07 at 08:45 Pantoprazole Sodium (PROTONIX VIAL for IV PUSH) 40 mg DAILYAC IVP ; Start at 09:30; Status UNV Sodium Chloride 1,000 ml @ 50 mls/hr Q20H IV Last administered on 04/12/18at 17 :38; Start 04/07/18 at 11:00 Barium Sulfate (Liquid E-Z Paque) 710 ml 1X ONCE PO ; Start 04/08/18 at 08:30; Stop 04/08/18 at 08:31; Status DC Polyethylene Glycol (miraLAX PACKET) 17 gm 1X ONCE PO Last administered on at 12:45; Start 04/08/18 at 13:00; Stop 04/08/18 at 13:01; Status DC Barium Sulfate (Liquid E-Z Paque) 710 ml 1X ONCE PO Last administered on at 07:50; Start 04/10/18 at 07:15; Stop 04/10/18 at 07:17; Status DC Cefazolin Sodium/ Dextrose 50 ml @ 100 mls/hr 1X PREOP PRN IV protocol Last administered on 04/11/18at 09:45; Start 04/11/18 at 06:00; Stop 04/11/18 at 17:03 ; Status DC Propofol 20 ml @ As Directed STK-MED ONCE IV ; Start 04/11/18 at 08:08; Stop at 08:09; Status DC Lidocaine HCl (Lidocaine Pf 2% Vial) 5 ml STK-MED ONCE .ROUTE ; Start 04/11/18 at 08:08; Stop 04/11/18 at 08:09; Status DC Ondansetron HCl (Zofran) 4 mg STK-MED ONCE .ROUTE ; Start 04/11/18 at 08:08; Stop 04/11/18 at 08:09; Status DC Midazolam HCl (Versed) 2 mg STK-MED ONCE .ROUTE ; Start 04/11/18 at 08:08; Stop 04/11/18 at 08:09; Status DC Fentanyl Citrate (Fentanyl 5ml Vial) 250 mcg STK-MED ONCE .ROUTE ; Start at 08:08; Stop 04/11/18 at 08:09; Status DC Bupivacaine HCl/ Epinephrine Bitart (Marcaine-Epi 0.25%-[id number]) 50 ml STK-MED ONCE .ROUTE Last administered on 04/11/18at 10:01; Start 04/11/18 at 08:15; Stop 04/11/18 at 09:15; Status DC Rocuronium King (Zemuron) 50 mg STK-MED ONCE .ROUTE ; Start 04/11/18 at 09:19 ; Stop 04/11/18 at 09:20; Status DC Ketorolac Tromethamine (Toradol For Or Only) 30 mg STK-MED ONCE INJ ; Start at 10:24; Stop 04/11/18 at 10:25; Status DC Propofol 20 ml @ As Directed STK-MED ONCE IV ; Start 04/11/18 at 10:38; Stop at 10:39; Status DC Neostigmine Methylsulfate (Neostigmine Methylsulfate) 5 mg STK-MED ONCE .ROUTE ; Start 04/11/18 at 11:08; Stop 04/11/18 at 11:09; Status DC Ondansetron HCl (Zofran) 4 mg PRN Q6HRS PRN IV NAUSEA/VOMITING; Start 04/11/18 at 11:15; Stop 04/11/18 at 17:04; Status DC Fentanyl Citrate (Fentanyl 2ml Vial) 25 mcg PRN Q5MIN PRN IV MILD PAIN; Start 04/11/18 at 11:15; Stop 04/11/18 at 17:03; Status DC Fentanyl Citrate (Fentanyl 2ml Vial) 50 mcg PRN Q5MIN PRN IV MODERATE TO SEVERE PAIN; Start 04/11/18 at 11:15; Stop 04/11/18 at 17:03; Status DC Morphine Sulfate (Morphine Sulfate) 1 mg PRN Q10MIN PRN IV SEVERE PAIN; Start 04/11/18 at 11:15; Stop 04/11/18 at 17:04; Status DC Ringer's Solution 1,000 ml @ 30 mls/hr Q24H IV Last administered on 04/11/18at 12:43; Start 04/11/18 at 11:13; Stop 04/11/18 at 23:12; Status DC Lidocaine HCl (Xylocaine-Mpf 1% 2ml Vial) 2 ml 1X PRN PRN ID IV START; Start at 11:15; Stop 04/11/18 at 17:04; Status DC Hydromorphone HCl (Dilaudid) 0.5 mg PRN Q10MIN PRN IV SEV PAIN, Second choice Last administered on 04/11/18at 12:14; Start 04/11/18 at 11:15; Stop 04/11/18 at 17:03; Status DC Prochlorperazine Edisylate (Compazine) 5 mg PACU PRN PRN IV NAUSEA, MRX1; Start 04/11/18 at 11:15; Stop 04/11/18 at 17:05; Status DC Enoxaparin Sodium (Lovenox 40mg Syringe) 40 mg Q24H SQ Last administered on at 15:04; Start 04/11/18 at 12:15 Sodium Chloride (Normal Saline Flush) 3 ml QSHIFT PRN IV AFTER MEDS AND BLOOD DRAWS; Start 04/11/18 at 12:15 Ondansetron HCl (Zofran) 4 mg PRN Q6HRS PRN IV NAUESA, 1ST CHOICE Last administered on 04/12/18at 09:52; Start 04/11/18 at 12:15 Morphine Sulfate (Morphine Sulfate) 5 mg PRN Q3HRS PRN IV MODERATE TO SEVERE PAIN Last administered on 04/11/18at 23:13; Start 04/11/18 at 12:15 Oxycodone/ Acetaminophen (Percocet 7.5/ 325) 1 tab PRN Q4HRS PRN PO MILD TO MODERATE PAIN Last administered on 04/13/18at 11:01; Start 04/11/18 at 12:15 Docusate Sodium (Colace) 100 mg DAILY PO Last administered on 04/13/18at 08:46; Start 04/12/18 at 11:30 Vitals/I & O Vital Sign - Last 24 Hours 04/12/18 04/12/18 04/12/18 04/12/18 15:00 15:03 19:00 20:02 Temp 98.2 99.3 98.2 99.3 Pulse 58 65 Resp 16 18 16 B/P (MAP) 112/56 (74) 111/55 (73) Pulse Ox 98 96 96 O2 Delivery Room Air Room Air Room Air Room Air 04/12/18 04/12/18 04/12/18 04/13/18 22:03 23:00 23:08 02:46 Temp 98.8 98.7 98.8 98.7 Pulse 58 57 Resp 18 17 18 B/P (MAP) 114/60 (78) 119/64 (82) Pulse Ox 96 95 96 98 O2 Delivery Room Air Room Air Room Air 04/13/18 04/13/18 04/13/18 04/13/18 06:27 07:00 07:27 08:00 Temp 98.0 98.0 Pulse 59 Resp 18 14 18 B/P (MAP) 122/62 (82) Pulse Ox 98 95 O2 Delivery Room Air Room Air Room Air Room Air O2 Flow Rate 10.0 04/13/18 11:01 Resp 18 Pulse Ox 95 O2 Delivery Room Air Intake and Output 04/12/18 04/12/18 04/13/18 15:00 23:00 07:00 Intake Total 320 ml 1420 ml 720 ml Output Total 850 ml 500 ml Balance 320 ml 570 ml 220 ml KAVITHA EVANS MD Apr 13, 2018 11:08
[2018-04-13] MEDS ORDERED: OXYC1TAB8 PO (12:06)
[2018-04-13] MEDS: ENOXAPARIN 40 MG/0.4 ML SYRINGE. SQ SCH (12:15)
--- NOTE | 2018-04-13 12:36 | PDOC ---
Provider Note Provider Note SURG up and about passing lots of gas home today f/u next week SOPHIE JACKSON MD Apr 13, 2018 12:36
--- NOTE | 2018-04-13 13:06 | PDOC3 ---
Discharge Summary Date of Admission: Apr 06, 2018 Date of Discharge: Apr 13, 2018 Follow-Up: 3-5 days Admitting Diagnosis comment: discharge diagnosis Chief Complaint 1.SBO, Dilated mid small bowel loops compatible with partial small bowel obstruction. on ct 2.Low-security incarceration 3.History of Crohn's, history of partial colon resection remote 4..History of SBO in the past 5. mod protein-caloric malnutrition pod # 2 incarcerated ventral incisional hernia home today, see surgery next week, GI IN 2 WEEKS History of Present Illness History of Present Illness pain Pre-Op Diagnosis incarcerated ventral incisional hernia Post-Op Diagnosis same Procedure Performed primary repair, [facility]ER[facility]TE Surgeon Ramakrishna Vitals Vitals Vital Signs Date Time Temp Pulse Resp B/P (MAP) Pulse Ox O2 Delivery O2 Flow Rate FiO2 04/13/18 11:01 18 95 Room Air 04/13/18 07:00 98.0 59 122/62 (82) 98.0 04/13/18 06:27 10.0 Physical Exam General: Alert, Oriented X3, Cooperative, No acute distress, mild distress Heart: Regular rate, Normal S1, Normal S2, No murmurs Lungs: Clear Abdomen: Soft, No tenderness, No hepatosplenomegaly, No masses Extremities: No clubbing, No cyanosis, No edema Skin: No rashes, No breakdown, No significant lesion Labs FINAL DIAGNOSIS Problems Medical Problems: (1) Small bowel obstruction Status: Acute Brief Hospital Course Mr. Ambriz is a 38 old [sex] who presented with [sbo ] CONDITION AT DISCHARGE: Improved Discharge Medications Current Medications Sodium Chloride 1,000 ml @ 1,000 mls/hr 1X ONCE IV Last administered on at 14:11; Start 04/06/18 at 13:15; Stop 04/06/18 at 14:14; Status DC Morphine Sulfate (Morphine Sulfate) 4 mg 1X ONCE IV Last administered on at 14:10; Start 04/06/18 at 13:15; Stop 04/06/18 at 13:21; Status DC Ondansetron HCl (Zofran) 8 mg 1X ONCE IV Last administered on 04/06/18at 14:11 ; Start 04/06/18 at 13:15; Stop 04/06/18 at 13:21; Status DC Iohexol (Omnipaque 240 Mg/ml) 30 ml 1X ONCE PO Last administered on 04/06/18at 13:30; Start 04/06/18 at 13:30; Stop 04/06/18 at 13:31; Status DC Iohexol (Omnipaque 300 Mg/ml) 75 ml 1X ONCE IV Last administered on 04/06/18at 13:30; Start 04/06/18 at 13:30; Stop 04/06/18 at 13:31; Status DC Info (CONTRAST GIVEN -- Rx MONITORING) 1 each PRN DAILY PRN MC SEE COMMENTS; Start 04/06/18 at 13:30; Stop 04/08/18 at 13:29; Status DC Morphine Sulfate (Morphine Sulfate) 4 mg PRN Q2HR PRN IV PAIN; Start 04/06/18 at 15:45; Stop 04/07/18 at 15:44; Status DC Enoxaparin Sodium (Lovenox 40mg Syringe) 40 mg Q24H SQ Last administered on at 19:03; Start 04/06/18 at 19:00; Stop 04/07/18 at 08:33; Status DC Sodium Chloride 1,000 ml @ 125 mls/hr 1X ONCE IV Last administered on at 18:16; Start 04/06/18 at 17:30; Stop 04/07/18 at 01:29; Status DC Pantoprazole Sodium (PROTONIX VIAL for IV PUSH) 40 mg DAILYAC IVP Last administered on 04/12/18at 09:47; Start 04/06/18 at 18:00; Stop 04/12/18 at 12:05 ; Status DC Ondansetron HCl (Zofran) 4 mg PRN Q6HRS PRN IV NAUSEA/VOMITING; Start 04/07/18 at 08:45; Status Cancel Ondansetron HCl (Zofran Odt) 4 mg PRN Q6HRS PRN PO NAUSEA/VOMITING; Start 04/07 at 08:45 Pantoprazole Sodium (PROTONIX VIAL for IV PUSH) 40 mg DAILYAC IVP ; Start at 09:30; Status UNV Sodium Chloride 1,000 ml @ 50 mls/hr Q20H IV Last administered on 04/12/18at 17 :38; Start 04/07/18 at 11:00 Barium Sulfate (Liquid E-Z Paque) 710 ml 1X ONCE PO ; Start 04/08/18 at 08:30; Stop 04/08/18 at 08:31; Status DC Polyethylene Glycol (miraLAX PACKET) 17 gm 1X ONCE PO Last administered on at 12:45; Start 04/08/18 at 13:00; Stop 04/08/18 at 13:01; Status DC Barium Sulfate (Liquid E-Z Paque) 710 ml 1X ONCE PO Last administered on at 07:50; Start 04/10/18 at 07:15; Stop 04/10/18 at 07:17; Status DC Cefazolin Sodium/ Dextrose 50 ml @ 100 mls/hr 1X PREOP PRN IV protocol Last administered on 04/11/18at 09:45; Start 04/11/18 at 06:00; Stop 04/11/18 at 17:03 ; Status DC Propofol 20 ml @ As Directed STK-MED ONCE IV ; Start 04/11/18 at 08:08; Stop at 08:09; Status DC Lidocaine HCl (Lidocaine Pf 2% Vial) 5 ml STK-MED ONCE .ROUTE ; Start 04/11/18 at 08:08; Stop 04/11/18 at 08:09; Status DC Ondansetron HCl (Zofran) 4 mg STK-MED ONCE .ROUTE ; Start 04/11/18 at 08:08; Stop 04/11/18 at 08:09; Status DC Midazolam HCl (Versed) 2 mg STK-MED ONCE .ROUTE ; Start 04/11/18 at 08:08; Stop 04/11/18 at 08:09; Status DC Fentanyl Citrate (Fentanyl 5ml Vial) 250 mcg STK-MED ONCE .ROUTE ; Start at 08:08; Stop 04/11/18 at 08:09; Status DC Bupivacaine HCl/ Epinephrine Bitart (Marcaine-Epi 0.25%-1:[id number]) 50 ml STK-MED ONCE .ROUTE Last administered on 04/11/18at 10:01; Start 04/11/18 at 08:15; Stop 04/11/18 at 09:15; Status DC Rocuronium Index (Zemuron) 50 mg STK-MED ONCE .ROUTE ; Start 04/11/18 at 09:19 ; Stop 04/11/18 at 09:20; Status DC Ketorolac Tromethamine (Toradol For Or Only) 30 mg STK-MED ONCE INJ ; Start at 10:24; Stop 04/11/18 at 10:25; Status DC Propofol 20 ml @ As Directed STK-MED ONCE IV ; Start 04/11/18 at 10:38; Stop at 10:39; Status DC Neostigmine Methylsulfate (Neostigmine Methylsulfate) 5 mg STK-MED ONCE .ROUTE ; Start 04/11/18 at 11:08; Stop 04/11/18 at 11:09; Status DC Ondansetron HCl (Zofran) 4 mg PRN Q6HRS PRN IV NAUSEA/VOMITING; Start 04/11/18 at 11:15; Stop 04/11/18 at 17:04; Status DC Fentanyl Citrate (Fentanyl 2ml Vial) 25 mcg PRN Q5MIN PRN IV MILD PAIN; Start 04/11/18 at 11:15; Stop 04/11/18 at 17:03; Status DC Fentanyl Citrate (Fentanyl 2ml Vial) 50 mcg PRN Q5MIN PRN IV MODERATE TO SEVERE PAIN; Start 04/11/18 at 11:15; Stop 04/11/18 at 17:03; Status DC Morphine Sulfate (Morphine Sulfate) 1 mg PRN Q10MIN PRN IV SEVERE PAIN; Start 04/11/18 at 11:15; Stop 04/11/18 at 17:04; Status DC Ringer's Solution 1,000 ml @ 30 mls/hr Q24H IV Last administered on 04/11/18at 12:43; Start 04/11/18 at 11:13; Stop 04/11/18 at 23:12; Status DC Lidocaine HCl (Xylocaine-Mpf 1% 2ml Vial) 2 ml 1X PRN PRN ID IV START; Start at 11:15; Stop 04/11/18 at 17:04; Status DC Hydromorphone HCl (Dilaudid) 0.5 mg PRN Q10MIN PRN IV SEV PAIN, Second choice Last administered on 04/11/18at 12:14; Start 04/11/18 at 11:15; Stop 04/11/18 at 17:03; Status DC Prochlorperazine Edisylate (Compazine) 5 mg PACU PRN PRN IV NAUSEA, MRX1; Start 04/11/18 at 11:15; Stop 04/11/18 at 17:05; Status DC Enoxaparin Sodium (Lovenox 40mg Syringe) 40 mg Q24H SQ Last administered on at 15:04; Start 04/11/18 at 12:15 Sodium Chloride (Normal Saline Flush) 3 ml QSHIFT PRN IV AFTER MEDS AND BLOOD DRAWS; Start 04/11/18 at 12:15 Ondansetron HCl (Zofran) 4 mg PRN Q6HRS PRN IV NAUESA, 1ST CHOICE Last administered on 04/12/18at 09:52; Start 04/11/18 at 12:15 Morphine Sulfate (Morphine Sulfate) 5 mg PRN Q3HRS PRN IV MODERATE TO SEVERE PAIN Last administered on 04/11/18at 23:13; Start 04/11/18 at 12:15; Stop at 12:44; Status DC Oxycodone/ Acetaminophen (Percocet 7.5/ 325) 1 tab PRN Q4HRS PRN PO MILD TO MODERATE PAIN Last administered on 04/13/18at 11:01; Start 04/11/18 at 12:15 Docusate Sodium (Colace) 100 mg DAILY PO Last administered on 04/13/18at 08:46; Start 04/12/18 at 11:30 Active Scripts Active Oxycodon-Acetaminophen 7.5-325 (Oxycodone Hcl/Acetaminophen) 1 Each Tablet 1 Tab PO PRN Q4HRS PRN Vital Signs Vital Signs Date Time Temp Pulse Resp B/P (MAP) Pulse Ox O2 Delivery O2 Flow Rate FiO2 04/13/18 12:01 16 95 Room Air 04/13/18 11:00 98.0 69 111/59 (76) 98.0 04/13/18 06:27 10.0 Labs Laboratory Tests Test 04/12/18 11:00 04/13/18 03:25 White Blood Count 10.3 x10^3/uL (4.0-11.0) 9.3 x10^3/uL (4.0-11.0) Red Blood Count 4.85 x10^6/uL (4.30-5.70) 4.44 x10^6/uL (4.30-5.70) Hemoglobin 13.6 g/dL (13.0-17.5) 12.6 g/dL (13.0-17.5) Hematocrit 41.0 % (39.0-53.0) 37.5 % (39.0-53.0) Mean Corpuscular Volume 85 fL (79-100) 84 fL (79-100) Mean Corpuscular Hemoglobin 28 pg (25-35) 28 pg (25-35) Mean Corpuscular Hemoglobin Concent 33 g/dL (31-37) 34 g/dL (31-37) Red Cell Distribution Width 16.2 % (11.5-14.5) 16.0 % (11.5-14.5) Platelet Count 284 x10^3/uL (140-400) 253 x10^3/uL (140-400) Neutrophils (%) (Auto) 71 % (31-73) 67 % (31-73) Lymphocytes (%) (Auto) 21 % (24-48) 24 % (24-48) Monocytes (%) (Auto) 7 % (0-9) 7 % (0-9) Eosinophils (%) (Auto) 1 % (0-3) 2 % (0-3) Basophils (%) (Auto) 0 % (0-3) 0 % (0-3) Neutrophils # (Auto) 7.3 x10^3uL (1.8-7.7) 6.2 x10^3uL (1.8-7.7) Lymphocytes # (Auto) 2.1 x10^3/uL (1.0-4.8) 2.2 x10^3/uL (1.0-4.8) Monocytes # (Auto) 0.7 x10^3/uL (0.0-1.1) 0.6 x10^3/uL (0.0-1.1) Eosinophils # (Auto) 0.1 x10^3/uL (0.0-0.7) 0.2 x10^3/uL (0.0-0.7) Basophils # (Auto) 0.0 x10^3/uL (0.0-0.2) 0.0 x10^3/uL (0.0-0.2) Sodium Level 140 mmol/L (136-145) 139 mmol/L (136-145) Potassium Level 4.1 mmol/L (3.5-5.1) 4.1 mmol/L (3.5-5.1) Chloride Level 105 mmol/L (98-107) 104 mmol/L (98-107) Carbon Dioxide Level 35 mmol/L (21-32) 31 mmol/L (21-32) Anion Gap 0 (6-14) 4 (6-14) Blood Urea Nitrogen 9 mg/dL (8-26) 9 mg/dL (8-26) Creatinine 1.0 mg/dL (0.7-1.3) 0.9 mg/dL (0.7-1.3) Estimated GFR (Cockcroft-Gault) 83.6 94.4 BUN/Creatinine Ratio 9 (6-20) 10 (6-20) Glucose Level 126 mg/dL (70-99) 92 mg/dL (70-99) Calcium Level 8.3 mg/dL (8.5-10.1) 8.1 mg/dL (8.5-10.1) Total Bilirubin 0.5 mg/dL (0.2-1.0) 0.4 mg/dL (0.2-1.0) Aspartate Amino Transf (AST/SGOT) 9 U/L (15-37) 10 U/L (15-37) Alanine Aminotransferase (ALT/SGPT) 20 U/L (16-63) 19 U/L (16-63) Alkaline Phosphatase 85 U/L (46-116) 81 U/L (46-116) Total Protein 5.9 g/dL (6.4-8.2) 5.5 g/dL (6.4-8.2) Albumin 2.8 g/dL (3.4-5.0) 2.6 g/dL (3.4-5.0) Albumin/Globulin Ratio 0.9 (1.0-1.7) 0.9 (1.0-1.7) Laboratory Tests Test 04/13/18 03:25 White Blood Count 9.3 x10^3/uL (4.0-11.0) Red Blood Count 4.44 x10^6/uL (4.30-5.70) Hemoglobin 12.6 g/dL (13.0-17.5) Hematocrit 37.5 % (39.0-53.0) Mean Corpuscular Volume 84 fL (79-100) Mean Corpuscular Hemoglobin 28 pg (25-35) Mean Corpuscular Hemoglobin Concent 34 g/dL (31-37) Red Cell Distribution Width 16.0 % (11.5-14.5) Platelet Count 253 x10^3/uL (140-400) Neutrophils (%) (Auto) 67 % (31-73) Lymphocytes (%) (Auto) 24 % (24-48) Monocytes (%) (Auto) 7 % (0-9) Eosinophils (%) (Auto) 2 % (0-3) Basophils (%) (Auto) 0 % (0-3) Neutrophils # (Auto) 6.2 x10^3uL (1.8-7.7) Lymphocytes # (Auto) 2.2 x10^3/uL (1.0-4.8) Monocytes # (Auto) 0.6 x10^3/uL (0.0-1.1) Eosinophils # (Auto) 0.2 x10^3/uL (0.0-0.7) Basophils # (Auto) 0.0 x10^3/uL (0.0-0.2) Sodium Level 139 mmol/L (136-145) Potassium Level 4.1 mmol/L (3.5-5.1) Chloride Level 104 mmol/L (98-107) Carbon Dioxide Level 31 mmol/L (21-32) Anion Gap 4 (6-14) Blood Urea Nitrogen 9 mg/dL (8-26) Creatinine 0.9 mg/dL (0.7-1.3) Estimated GFR (Cockcroft-Gault) 94.4 BUN/Creatinine Ratio 10 (6-20) Glucose Level 92 mg/dL (70-99) Calcium Level 8.1 mg/dL (8.5-10.1) Total Bilirubin 0.4 mg/dL (0.2-1.0) Aspartate Amino Transf (AST/SGOT) 10 U/L (15-37) Alanine Aminotransferase (ALT/SGPT) 19 U/L (16-63) Alkaline Phosphatase 81 U/L (46-116) Total Protein 5.5 g/dL (6.4-8.2) Albumin 2.6 g/dL (3.4-5.0) Albumin/Globulin Ratio 0.9 (1.0-1.7) Allergies Allergies Coded Allergies Type Severity Reaction Last Updated Verified No Known Drug Allergies 04/11/18 No Disposition/Orders: Other (back to [facility] custody, [facility]) Patient Instructions d/c plan 38 min KAVITHA EVANS MD Apr 13, 2018 13:06
--- NOTE | 2018-04-13 13:09 | DISCH ---
DISCHARGE INSTRUCTIONS Condition on Discharge Condition on Discharge: Stable Activity After Discharge Activity Instructions for Disc: Activity as tolerated Lifting Instructions after Dis: No heavy lifting, No pulling or pushing, Do not lift >10 pounds Driving Instructions after Dis: Do not drive today Diet after Discharge Diet after Discharge: Low Sodium 2 gm Contacting the [facility] after DC Call your doctor for: If your condition worsens KAVITHA EVANS MD Apr 13, 2018 13:09
--- NOTE | 2018-04-14 10:09 | PATHOLOGY ---
[facility] Accession Number: [id number] . 01 Material submitted: . VENTRAL HERNIA SAC . 01 Clinical history: . Incarcerated ventral hernia . 02 Diagnosis: Segments of fibromembranous and fibroadipose tissue, ventral hernia repair: - Hernia sac. . (JPM:mml; 04/13/18) [facility]/04/13/2018 . 02 Electronically signed: . Jorge A Esparza MD, Pathologist NPI- [id number] . 01 Gross description: . The specimen is received in formalin, labeled "Himanshu Ambriz, ventral hernia sac" and consists of 4 segments of membranous storey-patel tissue with attached adipose tissue measuring 4.8 x 4.4 x 1.0 cm. Sectioning reveals focal possible fat necrosis and no masses. Form Grader Operator sections are submitted in A1-A2. (SDY; 04/11/2018) SYU/SYU . 02 Microscopic: . . . . 02 Pathologist provided ICD-10: K43.9 . 02 CPT . 360816 Performed at: 01 [facility] [address] [place] [address], [place] [id number] MD Byron Mclain MD Phone: [phone] Performed at: 02 [facility] [address], [place] [id number] MD Jorge A Esparza MD Phone: [phone]
== END 2018-04-13 14:00 | disposition home or self-care (01) | DRG 354 ==
LOC: EEVIPCON 12:51 → ER 12:51 → 5 SOUTH 15:41
PROVIDERS: ADMIT Family Medicine; ATTEND Family Medicine
PROC: 0WQF0ZZ Repair Abdominal Wall, Open Approach (ICD-10-PCS; principal; 2018-04-11 10:00)
DX: K43.0 Incisional hernia with obstruction, without gangrene (principal); K50.90 Crohn's disease, unspecified, without complications; E44.0 Moderate protein-calorie malnutrition; E86.0 Dehydration; I10 Essential (primary) hypertension; K66.0 Peritoneal adhesions (postprocedural) (postinfection); Z80.9 Family history of malignant neoplasm, unspecified; Z83.3 Family history of diabetes mellitus; Z68.25 Body mass index [BMI] 25.0-25.9, adult
CPT/HCPCS: 36415; 74018; 74022; 74177; 74250; 80047; 80053; 81001; 83605; 83690; 85025; 85027; 86140; 87641; 88302; 96361; 96374; 96375; A7015; C9113; J0690; J1170; J1650; J1885; J2001; J2250; J2270; J2405; J2704; J2710; J3010; J7030; J7120; Q9966; Q9967; 99285-25

== ENCOUNTER → 2018-07-12 | Day surgery (SDC) | payer OTHER ==
[~2018-07-12] MED LIST: CETI10TA22 PO; IV RINGERS,LACTATED 1000ML 1,000 ML IV SCH; MESA1.2T PO; NORT25CA PO; OXYC1TAB8 PO; PROPOFOL 60 ML IV ONE
[2018-07-12 08:33] VITALS: BP 111/59
--- NOTE | 2018-07-12 11:02 | HP ---
ADMIT DATE: 07/12/2018 REASON: Crohn's ileocolitis for surveillance. HISTORY OF PRESENT ILLNESS: A 38-year-old male with past medical history significant for Crohn's, status post hernia repair, ____ repair, tonsillectomy and ileocolonic resection in 2007 for Crohn's with adhesions, is seen for surveillance. Bowel habits are regular. He has been on mesalamine, Lialda ____ this is a biologic. Denies any extraintestinal manifestations, at this time has no additional complaints. PAST MEDICAL HISTORY: Crohn's, status post ileocolonic resection, tonsillectomy, umbilical hernia repair, left knee repair. MEDICATIONS: Include Zyrtec, Lialda, nortriptyline, oxycodone. SOCIAL HISTORY: ____, ex-smoker. FAMILY HISTORY: Significant for Crohn's in grandfather. REVIEW OF SYSTEMS: Per records. PHYSICAL EXAMINATION: GENERAL: A well-nourished, well-developed male. VITAL SIGNS: Temperature is 98.2, pulse 52, respirations 20. HEENT: Normocephalic and atraumatic. Pupils and extraocular movements are not tested. Sclerae anicteric. NECK: Supple. LUNGS: Clear. CARDIOVASCULAR: Reveals an S1, S2 without S3, S4 or appreciable murmur. ABDOMEN: Soft abdomen, normoactive bowel sounds, with a midline healed incision. EXTREMITIES: Reveal no cyanosis, clubbing or edema. IMPRESSION: Crohn ileocolitis. Surveillance colonoscopy is recommended at this time with biopsies for dysplasia. Risks and benefits have been discussed. The patient is willing to proceed at this time. CHRIS BELLE MD DR: SHAUN/peggy JOB#: [id number] / [id number]
--- NOTE | 2018-07-14 18:07 | PATHOLOGY ---
[facility] Accession Number: [id number] . 01 Material submitted: . PART A: TERMINAL ILEUM BX PART B: RANDOM COLON BX . 01 Clinician provided ICD-10: K50.90 . 01 Clinical history: . Crohn's . 02 Diagnosis: A. Small intestine mucosa, terminal ileum biopsies: - Active chronic ileitis with ulceration and without granulomas or specific features. . B. Colonic mucosa, random colon biopsies: - No significant pathologic abnormalities. . (JPM:lolly; 07/14/2018) [facility]/07/14/2018 . 02 Comment: Sections of the terminal ileum biopsy reveal segments of small intestine mucosa that show moderate to marked active chronic inflammation and segments of granulation tissue showing acute and chronic inflammation consistent with ulceration. There are no granulomas or specific features. The findings are consistent with chronic inflammatory bowel disease in the appropriate clinical setting. . Sections of the random colon biopsy reveal multiple segments of colonic mucosa. There is no evidence of a chronic destructive colitis, lymphocytic colitis, or collagenous colitis. . (JPM:lolly; 07/14/2018) . 02 Electronically signed: . Jorge A Esparza MD, Pathologist NPI- [id number] . 01 Gross description: . A. Received in formalin labeled "Himanshu Ambriz, terminal ileum BX," are multiple segments of patel soft tissue measuring 1.5 x 0.4 x 0.1 cm in aggregate dimensions. The specimen is filtered and entirely submitted in cassette A1. . B. Received in formalin labeled "Himanshu Ambriz, random colon BX," are multiple segments of patel soft tissue measuring 2.5 x 0.5 x 0.1 cm in aggregate dimensions. The specimen is filtered and entirely submitted in cassette B1. (TSD; 07/12/2018) TOB/TOB . 02 Pathologist provided ICD-10: K52.9 . 02 CPT . 818976, 233952 Specimen Comment: A courtesy copy of this report has been sent to Specimen Comment: [phone]. Specimen Comment: Report sent to Performed at: 01 [facility] [address] [place] [address], [place] [id number] MD Byron Mclain MD Phone: [phone] Performed at: 02 [facility] [address], [place] [id number] MD Jorge A Esparza MD Phone: [phone]
== END | disposition home or self-care (01) ==
LOC: ENDOS 06:10 → EEVIPCON 07:30
PROVIDERS: ATTEND Internal Medicine Gastroenterology
DX: K52.89 Other specified noninfective gastroenteritis and colitis (principal); K50.80 Crohn's disease of both small and large intestine without complications; K64.0 First degree hemorrhoids; Z98.890 Other specified postprocedural states; Z79.899 Other long term (current) drug therapy; Z87.891 Personal history of nicotine dependence; Z83.79 Family history of other diseases of the digestive system
CPT/HCPCS: 45380; 88305; J2704; 45385